=== PATIENT | female | born 1950 | race African-American/Black ===

== ENCOUNTER 2018-10-09 09:12 | Emergency (ER) | payer MEDICARE, OTHER ==
[~2018-10-09] VITALS: Ht 170.2 cm; Wt 70.0 kg
[~2018-10-09 09:12] MED LIST: AMLO1POW3 MC; CITA40TA6 PO; FURO20TA3 PO; NADO40TA PO; OMEP40CA6 PO; [UNRECOGNIZED DRUG - CODE] PO; [UNRECOGNIZED DRUG - CODE] PO
[2018-10-09 09:24] VITALS: Ht 170.2 cm; Wt 70.0 kg
[2018-10-09] MEDS ORDERED: HYDROCODONE/APAP (10/325) TAB PO ONE (10:00)
--- NOTE | 2018-10-09 10:12 | ERD ---
ER Documentation Chief Complaint Chief Complaint BIB [facility] FOR EVAL OF BACK PAIN. HX OF BACK SURGERY 2 WEEKS AGO HPI This is a 60-year-old female who presents for evaluation of acute on chronic back pain, she states she had surgery on her back 2 weeks ago. Patient states that she had requested a dose of pain medication, which was not given to her by her nursing salicylate, and so 911 was called. Otherwise she has no acute emergent complaints. She has no numbness or tingling, no chest pain or shortness of breath, no bowel bladder incontinence. ROS All systems reviewed and are negative except as per history of present illness. Medications Home Meds Reported Medications Citalopram Hydrobromide* (Citalopram Hydrobromide*) 40 Mg Tablet, 20 MG PO DAILY 01/31/13 Amlodipine Besylate (AMLODIPINE BESYLATE) 1 Gm Powder, 5 MG MC every other day 01/31/13 Furosemide* (Furosemide*) 20 Mg Tablet, 20 MG PO DAILY 01/31/13 Hydrocodone Bit-Acetaminophen (Hydrocodone Bit-Acetaminophen) 1 Each Tablet, 1 EACH PO QID 01/31/13 Nadolol (Nadolol) 40 Mg Tablet, 40 MG PO DAILY 01/31/13 Estradiol (Estradiol) 100 Gm Powder, 0.5 MG PO DAILY 01/31/13 Omeprazole* (Omeprazole*) 40 Mg Capsule.dr, 40 MG PO 01/31/13 Allergies Allergies: Coded Allergies: Penicillins (Verified Allergy, 01/31/13) iodine (Verified Allergy, 01/31/13) PMhx/Soc Anesthesia Reaction: No Hx Neurological Disorder: No Hx Respiratory Disorders: No Hx Cardiac Disorders: No Hx Psychiatric Problems: No Hx Miscellaneous Medical Probl: Yes (HTN, spinal stenosis, rheumatic fever) Hx Alcohol Use: No Hx Substance Use: No Hx Tobacco Use: No Smoking Status: Never smoker Physical Exam Vitals Vital Signs Date Temp Pulse Resp B/P (MAP) Pulse Ox O2 O2 Flow FiO2 Time Delivery Rate 10/09/18 98.0 90 17 142/82 99 09:24 (102) Physical Exam Const: Elderly appearing female, appears anxious Head: Atraumatic Eyes: Normal Conjunctiva ENT: Normal External Ears, Nose and Mouth. Neck: Full range of motion. No meningismus. Resp: Clear to auscultation bilaterally Cardio: Regular rate and rhythm, no murmurs Abd: Soft, non tender, non distended, no rebound or guarding. Normal bowel sounds Skin: No petechiae or rashes Back: No midline or flank tenderness Ext: No cyanosis, or edema Neur: Awake and alert Psych: Normal Mood and Affect Results 24 hrs Current Medications Medications Dose Sig/Hubert Start Time Status Last (Trade) Ordered Route PRN Stop Time Admin Dose Reason Admin 1 tab ONCE ONCE 10/09/18 DC 10/09/18 Acetaminophen PO 10:00 10:02 / 10/09/18 10:01 Hydrocodone Bitart ([place] ()) Procedures/MDM 68-year-old female presents with acute on chronic back pain. Patient actually has no acute medical complaints, and her main reason for presentation was that she had requested a dose of pain medications, and she had not been due for another 2 hours, other than that the patient has no neurologic complaints, she is otherwise afebrile and nontoxic-appearing. She is provided this pain medications, at this time she stable to be discharged to her facility, at discharge she was in no acute distress. Departure Diagnosis: Primary Impression: Back pain Back pain location: low back pain Chronicity: unspecified Back pain laterality: unspecified Sciatica presence: unspecified whether sciatica present Qualified Codes: M54.5 - Low back pain Condition: SONY Lopez MD Oct 09, 2018 10:12
[2018-10-09 11:35] VITALS: BP 132/89; PULSE 97; RESP 18
== END 2018-10-09 12:21 | disposition home or self-care (01) ==
LOC: E/R 09:12
DX: M54.5 Low back pain (principal); I10 Essential (primary) hypertension; R40.2142 Coma scale, eyes open, spontaneous, at arrival to emergency department; R40.2362 Coma scale, best motor response, obeys commands, at arrival to emergency department; R40.2252 Coma scale, best verbal response, oriented, at arrival to emergency department; R10.9 Unspecified abdominal pain
CPT/HCPCS: 74176; 80053; 81003; 83690; 85025; 85610; 93005

== ENCOUNTER 2019-01-28 18:34 | Inpatient (IN) | payer MEDICARE, OTHER ==
[~2019-01-28] VITALS: Ht 170.2 cm; Wt 64.7 kg
[2019-01-28] MEDS ORDERED: ONDANSETRON 4 MG INJ IV STA ×2 (19:33→23:36)
[2019-01-28] MEDS ORDERED: LIDOCAINE/MYLANTA 40 ML BTL PO STA (19:33)
[2019-01-28] MEDS ORDERED: BELLADONNA/PHENOBARBITAL TAB PO STA (19:33)
[2019-01-28] MEDS ORDERED: SOD CHLORIDE 0.9% 1,000 ML IV STA (19:33)
[2019-01-28] MEDS ORDERED: KETOROLAC 15 MG INJ IV STA (19:33)
--- NOTE | 2019-01-28 19:37 | ERD ---
ER Documentation Chief Complaint Chief Complaint AP X TODAY. HPI This is a 68-year-old woman who ate a hot dog yesterday which she states looked discolored (greenish) and then developed abdominal pain and cramping this morning with some episodes of nausea and retching. She states abdominal pain is epigastric and cramping radiates toward her back. Patient denies blood per rectum or melena although states her stool is always darkly colored because she uses iron supplements. She denies dysuria, no hematuria, no fevers or chills, no complaints of chest pain or shortness of breath. Patient does have chronic recurrent pain syndrome and used Emmett tablets at home prior to arrival without pain relief. ROS All systems reviewed and are negative except as per history of present illness. Medications Home Meds Active Scripts Hydrocodone/Acetaminophen (Emmett 5-325 Tablet) 1 Each Tablet, 1 TAB PO TID PRN for PAIN, #6 TAB Prov:SONY CANNON MD 01/28/19 Ibuprofen* (Motrin*) 600 Mg Tab, 600 MG PO Q8 PRN for PAIN AND/OR INFLAMMATION, #30 TAB Prov:SONY CANNON MD 01/28/19 Ondansetron Hcl* (Zofran*) 4 Mg Tablet, 4 MG PO Q8H PRN for NAUSEA AND/OR VOMITING, #30 TAB Prov:SONY CANNON MD 01/28/19 Reported Medications Citalopram Hydrobromide* (Citalopram Hydrobromide*) 40 Mg Tablet, 20 MG PO DAILY 01/31/13 Amlodipine Besylate (AMLODIPINE BESYLATE) 1 Gm Powder, 5 MG MC every other day 01/31/13 Furosemide* (Furosemide*) 20 Mg Tablet, 20 MG PO DAILY 01/31/13 Hydrocodone Bit-Acetaminophen (Hydrocodone Bit-Acetaminophen) 1 Each Tablet, 1 EACH PO QID 01/31/13 Nadolol (Nadolol) 40 Mg Tablet, 40 MG PO DAILY 01/31/13 Estradiol (Estradiol) 100 Gm Powder, 0.5 MG PO DAILY 01/31/13 Omeprazole* (Omeprazole*) 40 Mg Capsule.dr, 40 MG PO 01/31/13 Allergies Allergies: Coded Allergies: Penicillins (Verified Allergy, Unknown, 01/28/19) iodine (Verified Allergy, Unknown, 01/28/19) PMhx/Soc Hypertension, gastritis, chronic pain syndrome, chronic back pain, history of spinal stenosis, opioid dependence Anesthesia Reaction: No Hx Neurological Disorder: No Hx Respiratory Disorders: No Hx Cardiac Disorders: No Hx Psychiatric Problems: No Hx Miscellaneous Medical Probl: Yes (HTN, spinal stenosis, rheumatic fever) Hx Alcohol Use: No Hx Substance Use: No Hx Tobacco Use: No FmHx Family History: No diabetes Physical Exam Vitals Vital Signs Date Temp Pulse Resp B/P (MAP) Pulse Ox O2 O2 Flow FiO2 Time Delivery Rate 01/28/19 72 16 127/73 96 Room Air 22:07 (91) 01/28/19 99.2 80 20 153/77 98 18:37 (102) Physical Exam GENERAL: Well-developed, well-nourished, well-hydrated, moderate discomfort, afebrile HEENT: Moist mucous membranes, pink conjunctiva, no cervical spine tenderness or step-off deformities, no goiter, no jaundice or icterus, extraocular movements intact without pain. No submandibular induration, and no pharyngeal erythema NEURO: Alert and oriented 3, cranial nerves II through XII intact bilaterally, pupils equal round reactive to light, no focal deficits or facial asymmetry, sensation intact distally Strength 5/5 in upper and lower extremities bilaterally CARDIAC: Regular rate and rhythm, no murmurs rubs or gallops LUNGS: Clear bilaterally no wheezing crackles or stridor ABDOMEN: Epigastric tenderness to touch with voluntary guarding, no rigidity or rebound, no Nj sign, no psoas sign SKIN: Warm and dry to touch, no abrasions, contusions, or hematomas, no lacerations, no ecchymosis, no target lesions, and without ulcers EXTREMITIES: No clubbing cyanosis or edema, calves are bilaterally symmetrical, no Homans sign, no popliteal cord sign. Distal pulses equal and bilateral PSYCH: Normal affect without agitation or irritability Result Diagram: 01/28/19193801/28/191938 Results 24 hrs Laboratory Tests Test 01/28/19 19:39 White Blood Count 12.6 10^3/ul Red Blood Count 5.03 10^6/ul Hemoglobin 14.2 g/dl Hematocrit 43.4 % Mean Corpuscular Volume 86.3 fl Mean Corpuscular Hemoglobin 28.2 pg Mean Corpuscular Hemoglobin Concent 32.7 g/dl Red Cell Distribution Width 15.4 % Platelet Count 218 10^3/UL Mean Platelet Volume 9.4 fl Immature Granulocytes % 0.300 % Neutrophils % 74.1 % Lymphocytes % 17.8 % Monocytes % 6.5 % Eosinophils % 1.0 % Basophils % 0.3 % Nucleated Red Blood Cells % 0.0 /100WBC Immature Granulocytes # 0.040 10^3/ul Neutrophils # 9.3 10^3/ul Lymphocytes # 2.3 10^3/ul Monocytes # 0.8 10^3/ul Eosinophils # 0.1 10^3/ul Basophils # 0.0 10^3/ul Nucleated Red Blood Cells # 0.0 10^3/ul Sodium Level 140 mmol/L Potassium Level 3.7 mmol/L Chloride Level 101 mmol/L Carbon Dioxide Level 28 mmol/L Anion Gap 11 Blood Urea Nitrogen 13 mg/dl Creatinine 1.01 mg/dl Est Glomerular Filtrat Rate mL/min > 60 mL/min Glucose Level 101 mg/dl Calcium Level 9.8 mg/dl Total Bilirubin 0.4 mg/dl Direct Bilirubin 0.00 mg/dl Indirect Bilirubin 0.4 mg/dl Aspartate Amino Transf (AST/SGOT) 24 IU/L Alanine Aminotransferase (ALT/SGPT) 25 IU/L Alkaline Phosphatase 112 IU/L Total Protein 9.4 g/dl Albumin 4.6 g/dl Globulin 4.80 g/dl Albumin/Globulin Ratio 0.95 Lipase 129 U/L Current Medications Medications Dose Sig/Hubert Start Time Status Last (Trade) Ordered Route PRN Stop Time Admin Dose Reason Admin Sodium 1,000 ml @ Q1H STAT 01/28/19 DC 01/28/19 Chloride 1,000 mls/hr IV 19:33 01/28/19 19:46 20:32 Ondansetron 4 mg ONCE STAT 01/28/19 DC 01/28/19 HCl (Zofran IV 19:33 01/28/19 19:47 Inj) 19:40 40 ml ONCE STAT 01/28/19 DC 01/28/19 Miscellaneous PO 19:33 01/28/19 19:46 Medication 19:40 (Gi Cocktail (2)) Belladonna/ 2 tab ONCE STAT 01/28/19 DC 01/28/19 Phenobarbital PO 19:33 01/28/19 19:47 () 19:40 Ketorolac 15 mg ONCE STAT 01/28/19 DC 01/28/19 Tromethamine IV 19:33 01/28/19 19:47 (Toradol) 19:40 1 tab ONCE ONCE 01/28/19 DC 01/28/19 Acetaminophen PO 20:30 01/28/19 21:31 / 20:31 Hydrocodone Bitart (Emmett (5/325)) Procedures/MDM IV line was established patient was placed on radiation monitor rhythm strip revealed a sinus rhythm at about 80 bpm with upright P and T waves. Patient was afebrile I administered 1 L normal saline IV, Toradol 15 mg IV, Zofran 4 mg IV, GI cocktail p.o. EKG performed, read by me revealed a normal sinus rhythm at 78 bpm, normal axis, narrow QRS complex, no concerning ST elevations or depressions noted I did order 1 tablet of Emmett p.o. for continued abdominal pain. CBC and electrolytes are normal, liver function tests were normal, lipase normal For continued abdominal discomfort I did ordered a CT scan of the abdomen pelvis, which revealed thickening of gallbladder wall and mesenteric fat stranding inferior to the pancreas and irregular abnormal appearance of the wall of the duodenum. Please refer to radiologist dictation for full report. I administered hydromorphone 1 mg IV, Zofran 4 mg IV, LR 1 L IV x1. Patient may have early cholecystitis so I ordered ultrasound gallbladder and Zosyn 3.375 g IV. I consulted surgeon on-call Dr. Freed regarding the patient's CT scan findings and he agreed to consult the patient in the morning and recommended HIDA scan, although I will defer this order to admitting team. Patient admitted to [facility]. Departure Diagnosis: Primary Impression: Acute duodenitis Additional Impressions: Intractable abdominal pain Cholecystitis Condition: SONY Kim MD Jan 28, 2019 19:37
[2019-01-28] MEDS ORDERED: HYDROCODONE/APAP (5/325) TAB PO ONE (20:30)
[2019-01-28] MEDS ORDERED: HYDR-4011 PO (20:34)
[2019-01-28] MEDS ORDERED: IBUP-1542 PO (20:34)
[2019-01-28] MEDS ORDERED: ONDA4TAB8 PO (20:34)
[2019-01-28] MEDS ORDERED: LACTATED RINGER'S 1,000 ML IV STA (23:36)
[2019-01-28] MEDS ORDERED: HYDROmorphONE 1 MG/ML SYG IV STA (23:36)
[2019-01-29] MEDS ORDERED: PIPER-TAZO 3.375 GM IV (PMX) 100 ML IVPB ONE
[2019-01-29] MEDS ORDERED: LEVOFLOXACIN 750MG/D5W (PMX) 150 ML IVPB ONE (02:00)
[2019-01-29] MEDS ORDERED: metroNIDAZOLE 500 MG/NS (PMX) 100 ML IVPB ONE (02:00)
[2019-01-29] MEDS ORDERED: HYDROmorphONE 1 MG/ML SYG IV ONE (02:58)
[2019-01-29] MEDS ORDERED: NACL 0.9% 3 ML SYG IV SCH (04:00)
[2019-01-29] MEDS ORDERED: ONDANSETRON 4 MG INJ IV PRN (04:00)
[2019-01-29 04:08] VITALS: BP 136/80; PULSE 76; RESP 20
[2019-01-29] MEDS ORDERED: AMLO2.5T78 PO (04:21)
[2019-01-29] MEDS ORDERED: ASPI-535 PO (04:22)
[2019-01-29] MEDS ORDERED: MAGN400T28 PO (04:23)
[2019-01-29] MEDS ORDERED: METO-429 PO (04:24)
[2019-01-29] MEDS ORDERED: [UNRECOGNIZED DRUG - CODE] PO (04:31)
[2019-01-29] MEDS ORDERED: ATOR40TA68 PO (04:32)
[2019-01-29] MEDS: DEXTROSE 5%-0.45% NACL 1,000 ML IV SCH ×3 (04:47→23:47)
[2019-01-29] MEDS ORDERED: FOLI0.8C PO (04:58)
[2019-01-29] MEDS ORDERED: LACT1CAP56 PO (05:03)
[2019-01-29] MEDS ORDERED: POTA20LI15 PO (05:03)
[2019-01-29] MEDS ORDERED: CLOP75TA27 PO (05:04)
[2019-01-29] MEDS ORDERED: CHOL100062 PO (05:06)
[2019-01-29] MEDS ORDERED: DIAZ10TA4 PO (05:09)
[2019-01-29] MEDS ORDERED: DICL100G37 TOP (05:10)
[2019-01-29] MEDS ORDERED: HYDR-3980 PO (05:10)
[2019-01-29] MEDS ORDERED: DOCU-144 PO (05:12)
[2019-01-29] MEDS ORDERED: ZOLP5TAB PO (05:15)
[2019-01-29] MEDS: HYDROmorphONE 0.5 MG/0.5 ML SYG IV PRN ×2 (05:24→09:37)
--- NOTE | 2019-01-29 05:59 | HP ---
Date/Time of Note Date/Time of Note DATE: 01/29/19 TIME: 05:56 Assessment/Plan VTE Prophylaxis Pharmacological prophylaxis: heparin Lines/Catheters IV Catheter Type (from Nrsg): Saline Lock Assessment/Plan Assessment/Plan 1. Abdominal pain with N/V -Suspect secondary to gastroenteritis/duodenitis versus possibly cholecystitis -Keep n.p.o. with IV fluid -IV antibiotic -PPI -Consider surgical eval 2. Possible cholecystitis: See #1 3. Leukocytosis: See #1 and #2 4. History of spinal stenosis status post laminectomy -No acute issue Result Diagram: 01/29/19 0441 01/28/19 1939 Results 24hrs Laboratory Tests Test 01/28/19 19:39 01/29/19 04:41 White Blood Count 12.6 #H 11.7 H Red Blood Count 5.03 # 4.13 L Hemoglobin 14.2 # 11.9 L Hematocrit 43.4 # 35.8 L Mean Corpuscular Volume 86.3 86.7 Mean Corpuscular Hemoglobin 28.2 L 28.8 L Mean Corpuscular Hemoglobin Concent 32.7 33.2 Red Cell Distribution Width 15.4 H 15.2 H Platelet Count 218 170 # Mean Platelet Volume 9.4 9.8 Immature Granulocytes % 0.300 0.500 H Neutrophils % 74.1 73.5 Lymphocytes % 17.8 17.6 Monocytes % 6.5 7.2 Eosinophils % 1.0 0.9 Basophils % 0.3 0.3 Nucleated Red Blood Cells % 0.0 0.0 Immature Granulocytes # 0.040 H 0.060 H Neutrophils # 9.3 H 8.6 H Lymphocytes # 2.3 2.1 Monocytes # 0.8 0.8 Eosinophils # 0.1 0.1 Basophils # 0.0 0.0 Nucleated Red Blood Cells # 0.0 0.0 Prothrombin Time 12.3 Prothrombin Time Ratio 1.0 INR International Normalized Ratio 0.90 Activated Partial Thromboplast Time 32.6 Sodium Level 140 Potassium Level 3.7 Chloride Level 101 Carbon Dioxide Level 28 Anion Gap 11 Blood Urea Nitrogen 13 Creatinine 1.01 H Est Glomerular Filtrat Rate mL/min > 60 Glucose Level 101 Calcium Level 9.8 Total Bilirubin 0.4 Direct Bilirubin 0.00 Indirect Bilirubin 0.4 Aspartate Amino Transf (AST/SGOT) 24 Alanine Aminotransferase (ALT/SGPT) 25 Alkaline Phosphatase 112 Total Protein 9.4 H Albumin 4.6 Globulin 4.80 H Albumin/Globulin Ratio 0.95 Lipase 129 HPI/ROS Admit Date/Time Admit Date/Time Jan 28, 2019 at 23:46 Hx of Present Illness Patient is a 68-year-old female with a history of spinal stenosis status post surgery, rheumatic fever who presents the ER complaining of abdominal pain and nausea and vomiting. Symptoms started after she ate a hot dog. She said the hot dog did not feel fresh when she ate it. Emesis described as nonbloody. Denied any fever/chills, diarrhea. Ultrasound in the ER shows a sludge in the gallbladder neck. CT abdomen/pelvis shows the followin. Thickening of the gallbladder wall. Cannot exclude cholecystitis. Recommend correlation with ultrasound. 2. There is mesenteric fatty stranding, noted inferior to the pancreas, which has increased since prior examination. There is also interval development of a 4.2 mm hyperdensity, possibly calcification within the mesentery. There also appears to be thickened and abnormal appearance of the lyons of the duodenum in this location. Findings are worrisome for possible severe duodenitis. 3. Recommend correlation with amylase and lipase levels to exclude the possibility of pancreatitis. 4. GIVEN IRREGULAR APPEARANCE OF THE DUODENUM AND INCREASED MESENTERIC INFLAMMATORY CHANGES, RECOMMEND FOLLOW-UP CT SCAN WITH IV AND ORAL GASTROGRAPHIN CONTRAST FOR COMPLETE EVALUATION. 5. Status post hysterectomy. 6. L4-L5 postsurgical changes. PMH/Family/Social Past Medical History Past Surgical Hx: other Family History Significant Family History: no pertinent family hx Social History Alcohol Use: none Smoking Status: Never smoker Drug Use: none Exam Constitutional: other (No acute distress) Head: normocephalic, atraumatic Eyes: EOMI, PERRL Respiratory: clear to auscultation, normal air movement Cardiovascular: regular rate and rhythm Gastrointestinal: soft Extremities: normal pulses Medications Current Medications Dextrose/Sodium Chloride 1,000 ml @ 100 mls/hr Q10H IV Last administered on 01/29/19at 04:47; Admin Dose 100 MLS/HR; Start 01/29/19 at 03:47 IV Flush (NS 3 ml) 3 ml PER PROTOCOL IV ; Start 01/29/19 at 04:00 Ondansetron HCl (Zofran Inj) 4 mg Q6H PRN IV NAUSEA/VOMITING Last administered on 01/29/19at 05:24; Admin Dose 4 MG; Start 01/29/19 at 04:00 Hydromorphone HCl (Dilaudid) 0.5 mg Q4H PRN IV .SEVERE PAIN 7-10 Last administered on 01/29/19at 05:24; Admin Dose 0.5 MG; Start 01/29/19 at 04:00 Ciprofloxacin/ Dextrose 200 ml @ 200 mls/hr Q12 IVPB ; Start 01/29/19 at 09:00 Famotidine (Pepcid Iv) 20 mg BID IV ; Start 01/29/19 at 09:00 Coded Allergies: Penicillins (Verified Allergy, Unknown, 01/28/19) iodine (Verified Allergy, Unknown, 01/28/19) Social History Smoking Status: Never smoker Exam/Review of Systems Vital Signs Vitals Vital Signs Date Temp Pulse Resp B/P (MAP) Pulse Ox O2 O2 Flow FiO2 Time Delivery Rate 01/29/19 97.6 76 20 136/80 98 04:08 (98) 01/29/19 Room Air 03:31 LORENA BAY MD Jan 29, 2019 05:59
[2019-01-29] MEDS ORDERED: PANTOPRAZOLE 40 MG INJ IV SCH (06:00)
[2019-01-29 06:07] VITALS: Ht 170.2 cm; Wt 64.7 kg
[2019-01-29 08:18] VITALS: BP 140/73; PULSE 74; RESP 22
[2019-01-29] MEDS: FAMOTIDINE 20 MG INJ IV SCH ×2 (08:52→20:42)
[2019-01-29] MEDS: CIPROFLOXACIN 400MG/D5W 200 ML IVPB SCH ×2 (08:53→20:42)
--- NOTE | 2019-01-29 11:11 | PN ---
Date/Time of Note Date/Time of Note DATE: 01/29/19 TIME: 11:09 Assessment/Plan VTE Prophylaxis SCD applied (from Nsg): Yes Pharmacological prophylaxis: NA/contraindicated Pharm contraindication: other (SCD) Lines/Catheters IV Catheter Type (from Nrsg): Peripheral IV Assessment/Plan Assessment/Plan SIRS 2/2 Acute Gastroenteritis/Duodenitis - cont Zosyn, IVF - advance diet to clears - CT with oral contrast due to iodine allergy - pain control Result Diagram: 01/29/19 0441 01/29/19 0441 Results 24hrs Laboratory Tests Test 01/28/19 19:39 01/29/19 04:41 White Blood Count 12.6 #H 11.7 H Red Blood Count 5.03 # 4.13 L Hemoglobin 14.2 # 11.9 L Hematocrit 43.4 # 35.8 L Mean Corpuscular Volume 86.3 86.7 Mean Corpuscular Hemoglobin 28.2 L 28.8 L Mean Corpuscular Hemoglobin Concent 32.7 33.2 Red Cell Distribution Width 15.4 H 15.2 H Platelet Count 218 170 # Mean Platelet Volume 9.4 9.8 Immature Granulocytes % 0.300 0.500 H Neutrophils % 74.1 73.5 Lymphocytes % 17.8 17.6 Monocytes % 6.5 7.2 Eosinophils % 1.0 0.9 Basophils % 0.3 0.3 Nucleated Red Blood Cells % 0.0 0.0 Immature Granulocytes # 0.040 H 0.060 H Neutrophils # 9.3 H 8.6 H Lymphocytes # 2.3 2.1 Monocytes # 0.8 0.8 Eosinophils # 0.1 0.1 Basophils # 0.0 0.0 Nucleated Red Blood Cells # 0.0 0.0 Prothrombin Time 12.3 Prothrombin Time Ratio 1.0 INR International Normalized Ratio 0.90 Activated Partial Thromboplast Time 32.6 Sodium Level 140 139 Potassium Level 3.7 3.7 Chloride Level 101 106 Carbon Dioxide Level 28 28 Anion Gap 11 5 Blood Urea Nitrogen 13 10 Creatinine 1.01 H 0.86 Est Glomerular Filtrat Rate mL/min > 60 > 60 Glucose Level 101 99 Calcium Level 9.8 9.0 Total Bilirubin 0.4 0.5 Direct Bilirubin 0.00 0.00 Indirect Bilirubin 0.4 0.5 Aspartate Amino Transf (AST/SGOT) 24 16 Alanine Aminotransferase (ALT/SGPT) 25 17 Alkaline Phosphatase 112 75 Total Protein 9.4 H 7.1 # Albumin 4.6 3.6 # Globulin 4.80 H 3.50 H Albumin/Globulin Ratio 0.95 1.02 Lipase 129 Phosphorus Level 3.3 Magnesium Level 2.4 Subjective 24 Hr Interval Summary Free Text/Dictation Patient still with significant abdominal pain. Passing flatus. Abs US negative for cholelithiasis and cholecystitis. Patient wants to try clear liquids. Exam/Review of Systems Exam Vitals Vital Signs Date Temp Pulse Resp B/P (MAP) Pulse Ox O2 O2 Flow FiO2 Time Delivery Rate 01/29/19 98.7 74 22 140/73 99 08:18 (95) 01/29/19 Room Air 03:31 Psych: anxiety Respiratory: clear to auscultation, normal air movement Cardiovascular: regular rate and rhythm, nl pulses Gastrointestinal: soft, nl liver, spleen, bowel sounds, tender (TTP R side; no rebound or guarding) Results Results 24hrs Laboratory Tests Test 01/28/19 19:39 01/29/19 04:41 White Blood Count 12.6 #H 11.7 H Red Blood Count 5.03 # 4.13 L Hemoglobin 14.2 # 11.9 L Hematocrit 43.4 # 35.8 L Mean Corpuscular Volume 86.3 86.7 Mean Corpuscular Hemoglobin 28.2 L 28.8 L Mean Corpuscular Hemoglobin Concent 32.7 33.2 Red Cell Distribution Width 15.4 H 15.2 H Platelet Count 218 170 # Mean Platelet Volume 9.4 9.8 Immature Granulocytes % 0.300 0.500 H Neutrophils % 74.1 73.5 Lymphocytes % 17.8 17.6 Monocytes % 6.5 7.2 Eosinophils % 1.0 0.9 Basophils % 0.3 0.3 Nucleated Red Blood Cells % 0.0 0.0 Immature Granulocytes # 0.040 H 0.060 H Neutrophils # 9.3 H 8.6 H Lymphocytes # 2.3 2.1 Monocytes # 0.8 0.8 Eosinophils # 0.1 0.1 Basophils # 0.0 0.0 Nucleated Red Blood Cells # 0.0 0.0 Prothrombin Time 12.3 Prothrombin Time Ratio 1.0 INR International Normalized Ratio 0.90 Activated Partial Thromboplast Time 32.6 Sodium Level 140 139 Potassium Level 3.7 3.7 Chloride Level 101 106 Carbon Dioxide Level 28 28 Anion Gap 11 5 Blood Urea Nitrogen 13 10 Creatinine 1.01 H 0.86 Est Glomerular Filtrat Rate mL/min > 60 > 60 Glucose Level 101 99 Calcium Level 9.8 9.0 Total Bilirubin 0.4 0.5 Direct Bilirubin 0.00 0.00 Indirect Bilirubin 0.4 0.5 Aspartate Amino Transf (AST/SGOT) 24 16 Alanine Aminotransferase (ALT/SGPT) 25 17 Alkaline Phosphatase 112 75 Total Protein 9.4 H 7.1 # Albumin 4.6 3.6 # Globulin 4.80 H 3.50 H Albumin/Globulin Ratio 0.95 1.02 Lipase 129 Phosphorus Level 3.3 Magnesium Level 2.4 Medications Medication Current Medications Dextrose/Sodium Chloride 1,000 ml @ 100 mls/hr Q10H IV Last administered on 01/29/19 04:47; Admin Dose 100 MLS/HR; Start 01/29/19 at 03:47 IV Flush (NS 3 ml) 3 ml PER PROTOCOL IV ; Start 01/29/19 at 04:00 Ondansetron HCl (Zofran Inj) 4 mg Q6H PRN IV NAUSEA/VOMITING Last administered on 01/29/19 05:24; Admin Dose 4 MG; Start 01/29/19 at 04:00 Hydromorphone HCl (Dilaudid) 0.5 mg Q4H PRN IV .SEVERE PAIN 7-10 Last administered on 01/29/19 09:37; Admin Dose 0.5 MG; Start 01/29/19 at 04:00 Ciprofloxacin/ Dextrose 200 ml @ 200 mls/hr Q12 IVPB Last administered on 01/29/19 08:53; Admin Dose 200 MLS/HR; Start 01/29/19 at 09:00 Famotidine (Pepcid Iv) 20 mg BID IV Last administered on 01/29/19 08:52; Admin Dose 20 MG; Start 01/29/19 at 09:00 KATHARINE STEWART MD Jan 29, 2019 11:11
[2019-01-29] MEDS ORDERED: traMADol 50 MG TAB GTB PRN (11:30)
[2019-01-29] MEDS ORDERED: BARIUM SULF 2% 450 ML BTL (BERRY SMOOTHIE) PO ONE ×2 (12:00)
[2019-01-29] MEDS: HYDROmorphONE 1 MG/ML SYG IV PRN ×3 (13:11→21:34)
[2019-01-29] MEDS: metroNIDAZOLE 500 MG/NS (PMX) 100 ML IVPB SCH ×2 (13:38→21:36)
[2019-01-29] MEDS: ONDANSETRON 4 MG INJ IV PRN (13:38)
--- NOTE | 2019-01-29 13:47 | CONS ---
Assessment/Plan Assessment/Plan Assessment/Plan (Daily) Patient with abdominal pain and some signs of duodenitis unclear etiology. I agreed to repeat the CT scan with contrast. Consultation Date/Type/Reason Admit Date/Time Jan 28, 2019 at 23:46 Date of Consultation: Jan 29, 2019 Type of Consult Surgical Reason for Consultation Upper abdomen pain Date/Time of Note DATE: 01/29/19 TIME: 13:44 Hx of Present Illness This is a 68-year-old woman who ate a hot dog yesterday which she states looked discolored (greenish) and then developed abdominal pain and cramping this morning with some episodes of nausea and retching. She states abdominal pain is epigastric and cramping radiates toward her back. Patient denies blood per rectum or melena although states her stool is always darkly colored because she uses iron supplements. She denies dysuria, no hematuria, no fevers or chills, no complaints of chest pain or shortness of breath. Patient does have chronic recurrent pain syndrome and used [place] tablets at home prior to arrival without pain relief. CT scan was performed in the emergency room that showed thickened wall of the stomach and duodenum no evidence of cholecystitis no free air no free fluid in the abdomen. Sludge in the gallbladder. Ultrasound also did not confirmed gallstones and the gallbladder wall was found to be normal. Patient was admitted with IV antibiotics. Overnight patient states her pain did not improve significantly. Constitutional: no complaints, improved Eyes: no complaints ENT: no complaints Respiratory: no complaints Cardiovascular: no complaints Gastrointestinal: no complaints Genitourinary: no complaints Musculoskeletal: no complaints Skin: no complaints Neurologic: no complaints Endocrine: no complaints Lymphatic: no complaints Psychological: no complaints, nl mood/affect Immunologic: no complaints Past Medical History Medical History: coronary artery disease Home Meds Active Scripts Hydrocodone/Acetaminophen ([place] 5-325 Tablet) 1 Each Tablet, 1 TAB PO TID PRN for PAIN, #6 TAB Prov:SONY CANNON MD 01/28/19 Ibuprofen* (Motrin*) 600 Mg Tab, 600 MG PO Q8 PRN for PAIN AND/OR INFLAMMATION, #30 TAB Prov:SONY CANNON MD 01/28/19 Ondansetron Hcl* (Zofran*) 4 Mg Tablet, 4 MG PO Q8H PRN for NAUSEA AND/OR VOMITING, #30 TAB Prov:ZOHRABIAN,SONY MD 01/28/19 Reported Medications Zolpidem Tartrate* (Ambien*) 5 Mg Tablet, 5 MG PO QHS for INSOMNIA, #30 TAB 01/29/19 Docusate Sodium* (Colace*) 100 Mg Capsule, 100 MG PO BID, #60 CAP 01/29/19 Hydrocodone/Acetaminophen ([place] 10-325 Tablet) 1 Each Tablet, 1 EACH PO TID for PAIN, TAB 01/29/19 Diclofenac Sodium* (Voltaren* Gel) 1% -100 Gm Gel, 2 GM TOP BID for FEET AND LEGS., #1 TUB 01/29/19 Diazepam* (Diazepam*) 10 Mg Tablet, 10 MG PO BID, TAB 01/29/19 Cholecalciferol* (Vitamin D3*) 1,000 Unit Tablet, 5000 UNIT PO at bedtime, TAB 01/29/19 Clopidogrel Bisulfate (Clopidogrel) 75 Mg Tablet, 75 MG PO at night, #30 TAB 01/29/19 Lactobacillus Combo No.11 (Probiotic) 1 Each Cap.sprink, 1 CAP PO at night, CAP 01/29/19 Potassium Chloride* (Potassium Chloride*) 20 Meq/15 Ml Liquid, 20 MEQ PO DAILY, ML 01/29/19 Folic Acid (Folic Acid) 0.8 Mg Capsule, 0.8 MG PO DAILY, CAP 01/29/19 Atorvastatin* (Atorvastatin*) 40 Mg Tablet, 10 MG PO QHS, #30 TAB 01/29/19 Multivitamin/Iron/Folic Acid (MULTI-DAY PLUS IRON TABLET) 1 Each Tablet, 1 EACH PO DAILY, TAB 01/29/19 Metoprolol Tartrate* (Lopressor*) 50 Mg Tab, 50 MG PO BID, #60 TAB 01/29/19 Magnesium Oxide* (Magnesium Oxide*) 400 Mg Tablet, 250 MG PO BID, TAB 01/29/19 Aspirin Ec (Aspir 81) 81 Mg Tablet.dr, 81 MG PO DAILY, #30 TAB 01/29/19 Amlodipine Besylate* (Amlodipine Besylate*) 2.5 Mg Tablet, 2.5 MG PO DAILY, #30 TAB 01/29/19 Discontinued Reported Medications Citalopram Hydrobromide* (Citalopram Hydrobromide*) 40 Mg Tablet, 20 MG PO DAILY 01/31/13 Amlodipine Besylate (AMLODIPINE BESYLATE) 1 Gm Powder, 5 MG MC every other day 01/31/13 Furosemide* (Furosemide*) 20 Mg Tablet, 20 MG PO DAILY 01/31/13 Hydrocodone Bit-Acetaminophen (Hydrocodone Bit-Acetaminophen) 1 Each Tablet, 1 EACH PO QID 01/31/13 Nadolol (Nadolol) 40 Mg Tablet, 40 MG PO DAILY 01/31/13 Estradiol (Estradiol) 100 Gm Powder, 0.5 MG PO DAILY 01/31/13 Omeprazole* (Omeprazole*) 40 Mg Capsule.dr, 40 MG PO 01/31/13 Medications Current Medications Dextrose/Sodium Chloride 1,000 ml @ 100 mls/hr Q10H IV Last administered on 01/29/19 04:47; Admin Dose 100 MLS/HR; Start 01/29/19 at 03:47 IV Flush (NS 3 ml) 3 ml PER PROTOCOL IV ; Start 01/29/19 at 04:00 Hydromorphone HCl (Dilaudid) 0.5 mg Q4H PRN IV .SEVERE PAIN 7-10 Last administered on 01/29/19 09:37; Admin Dose 0.5 MG; Start 01/29/19 at 04:00 Ciprofloxacin/ Dextrose 200 ml @ 200 mls/hr Q12 IVPB Last administered on 01/29/19 08:53; Admin Dose 200 MLS/HR; Start 01/29/19 at 09:00 Famotidine (Pepcid Iv) 20 mg BID IV Last administered on 01/29/19 08:52; Admin Dose 20 MG; Start 01/29/19 at 09:00 Metronidazole 100 ml @ 100 mls/hr Q8 IVPB Last administered on 01/29/19 13:38; Admin Dose 100 MLS/HR; Start 01/29/19 at 14:00 Tramadol HCl (Ultram) 50 mg Q6H PRN GTB MODERATE PAIN LEVEL 4-6 Last administered on 01/29/19 11:49; Admin Dose 50 MG; Start 01/29/19 at 11:30 Hydromorphone HCl (Dilaudid) 1 mg Q4H PRN IV SEVERE PAIN LEVEL 7-10 Last administered on 01/29/19 13:11; Admin Dose 1 MG; Start 01/29/19 at 11:30 Ondansetron HCl (Zofran Inj) 4 mg Q4H PRN IV NAUSEA/VOMITING Last administered on 01/29/19at 13:38; Admin Dose 4 MG; Start 01/29/19 at 11:30 Allergies: Coded Allergies: Penicillins (Verified Allergy, Unknown, 01/28/19) iodine (Verified Allergy, Unknown, 01/28/19) Social History Smoking Status: Never smoker Exam/Review of Systems Exam Vitals Vital Signs Date Temp Pulse Resp B/P (MAP) Pulse Ox O2 O2 Flow FiO2 Time Delivery Rate 01/29/19 98.7 74 22 140/73 99 08:18 (95) 01/29/19 Room Air 03:31 Constitutional: alert, oriented, well developed Psych: no complaints, nl mood/affect Head: normocephalic, atraumatic Eyes: nl conjunctiva, EOMI, nl lids, nl sclera, PERRL ENMT: nl external ears & nose, nl lips & teeth, nl nasal mucosa & septum Neck: supple, non-tender Respiratory: clear to auscultation, normal air movement Cardiovascular: regular rate and rhythm, nl pulses Gastrointestinal: soft, other (The abdomen is tender in the upper abdomen without rebound.) Musculoskeletal: nl extremities to inspection, nl gait and stance Extremities: normal pulses Neurological: 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 II-XII intact, nl mental status, nl speech, nl strength Skin: nl turgor; No rash or lesions Lymph: nl lymph nodes Results Result Diagram: 01/29/1944001/29/19 0441 Results 24hrs Laboratory Tests Test 01/28/19 19:39 01/29/19 04:41 White Blood Count 12.6 #H 11.7 H Red Blood Count 5.03 # 4.13 L Hemoglobin 14.2 # 11.9 L Hematocrit 43.4 # 35.8 L Mean Corpuscular Volume 86.3 86.7 Mean Corpuscular Hemoglobin 28.2 L 28.8 L Mean Corpuscular Hemoglobin Concent 32.7 33.2 Red Cell Distribution Width 15.4 H 15.2 H Platelet Count 218 170 # Mean Platelet Volume 9.4 9.8 Immature Granulocytes % 0.300 0.500 H Neutrophils % 74.1 73.5 Lymphocytes % 17.8 17.6 Monocytes % 6.5 7.2 Eosinophils % 1.0 0.9 Basophils % 0.3 0.3 Nucleated Red Blood Cells % 0.0 0.0 Immature Granulocytes # 0.040 H 0.060 H Neutrophils # 9.3 H 8.6 H Lymphocytes # 2.3 2.1 Monocytes # 0.8 0.8 Eosinophils # 0.1 0.1 Basophils # 0.0 0.0 Nucleated Red Blood Cells # 0.0 0.0 Prothrombin Time 12.3 Prothrombin Time Ratio 1.0 INR International Normalized Ratio 0.90 Activated Partial Thromboplast Time 32.6 Sodium Level 140 139 Potassium Level 3.7 3.7 Chloride Level 101 106 Carbon Dioxide Level 28 28 Anion Gap 11 5 Blood Urea Nitrogen 13 10 Creatinine 1.01 H 0.86 Est Glomerular Filtrat Rate mL/min > 60 > 60 Glucose Level 101 99 Calcium Level 9.8 9.0 Total Bilirubin 0.4 0.5 Direct Bilirubin 0.00 0.00 Indirect Bilirubin 0.4 0.5 Aspartate Amino Transf (AST/SGOT) 24 16 Alanine Aminotransferase (ALT/SGPT) 25 17 Alkaline Phosphatase 112 75 Total Protein 9.4 H 7.1 # Albumin 4.6 3.6 # Globulin 4.80 H 3.50 H Albumin/Globulin Ratio 0.95 1.02 Lipase 129 Phosphorus Level 3.3 Magnesium Level 2.4 Medications Medication Current Medications Dextrose/Sodium Chloride 1,000 ml @ 100 mls/hr Q10H IV Last administered on 01/29/19at 04:47; Admin Dose 100 MLS/HR; Start 01/29/19 at 03:47 IV Flush (NS 3 ml) 3 ml PER PROTOCOL IV ; Start 01/29/19 at 04:00 Hydromorphone HCl (Dilaudid) 0.5 mg Q4H PRN IV .SEVERE PAIN 7-10 Last administered on 01/29/19at 09:37; Admin Dose 0.5 MG; Start 01/29/19 at 04:00 Ciprofloxacin/ Dextrose 200 ml @ 200 mls/hr Q12 IVPB Last administered on 01/29/19 08:53; Admin Dose 200 MLS/HR; Start 01/29/19 at 09:00 Famotidine (Pepcid Iv) 20 mg BID IV Last administered on 01/29/19 08:52; Admin Dose 20 MG; Start 01/29/19 at 09:00 Metronidazole 100 ml @ 100 mls/hr Q8 IVPB Last administered on 01/29/19 13:38; Admin Dose 100 MLS/HR; Start 01/29/19 at 14:00 Tramadol HCl (Ultram) 50 mg Q6H PRN GTB MODERATE PAIN LEVEL 4-6 Last administered on 01/29/19 11:49; Admin Dose 50 MG; Start 01/29/19 at 11:30 Hydromorphone HCl (Dilaudid) 1 mg Q4H PRN IV SEVERE PAIN LEVEL 7-10 Last administered on 01/29/19 13:11; Admin Dose 1 MG; Start 01/29/19 at 11:30 Ondansetron HCl (Zofran Inj) 4 mg Q4H PRN IV NAUSEA/VOMITING Last administered on 01/29/19 13:38; Admin Dose 4 MG; Start 01/29/19 at 11:30 MELANIE HERNANDEZ MD Jan 29, 2019 13:47
[2019-01-29 14:39] VITALS: BP 134/77; PULSE 83; RESP 18
[2019-01-29] MEDS ORDERED: IOHEXOL 300MG/ML 150 ML BTL ONE (17:02)
[2019-01-29] MEDS ORDERED: SOD CHLORIDE 0.9% 100 ML ONE (17:02)
[2019-01-29] MEDS ORDERED: ZOLPIDEM 5 MG TAB PO PRN (20:30)
[2019-01-29] MEDS: METOPROLOL 50 MG TAB GTB SCH (20:39)
[2019-01-29 20:48] VITALS: BP 162/85; PULSE 84; RESP 20
[2019-01-29] MEDS: AMLODIPINE 2.5 MG TAB PO SCH (22:02)
[2019-01-30] MEDS: HYDROmorphONE 1 MG/ML SYG IV PRN ×4 (01:40→17:12)
[2019-01-30 01:44] VITALS: BP 136/73; PULSE 70; RESP 19
[2019-01-30] MEDS: DEXTROSE 5%-0.45% NACL 1,000 ML IV SCH (05:16)
[2019-01-30] MEDS: metroNIDAZOLE 500 MG/NS (PMX) 100 ML IVPB SCH ×2 (05:33→13:12)
[2019-01-30 07:52] VITALS: BP 133/79; PULSE 70; RESP 20
[2019-01-30] MEDS: FAMOTIDINE 20 MG INJ IV SCH (08:20)
[2019-01-30] MEDS: METOPROLOL 50 MG TAB GTB SCH (08:21)
[2019-01-30] MEDS: CIPROFLOXACIN 400MG/D5W 200 ML IVPB SCH (08:22)
[2019-01-30] MEDS: AMLODIPINE 2.5 MG TAB PO SCH (08:23)
--- NOTE | 2019-01-30 09:35 | PDOCDIS ---
Discharge Instructions CONDITION [id number] Patient Condition: [id number] Stable HOME CARE INSTRUCTIONS: [id number] Diet Instructions: [id number] Regular ACTIVITY: [id number] Activity Restrictions: [id number] No Restrictions KATHARINE STEWART MD Jan 30, 2019 09:34
--- NOTE | 2019-01-30 09:39 | DS ---
Date/Time of Note Date/Time of Note DATE: 01/30/19 TIME: 09:37 Discharge Summary Admission/Discharge Info Admit Date/Time Jan 28, 2019 at 23:46 Discharge Date/Time Patient Condition: Stable Hospital Course Patient admitted s/p intractable abdominal pain with nausea after eating a hot dog on 01/27. Symptoms resolved with IVF, Abx, conservative mgmt. Imaging was not consistent with acute cholecystitis, duodenitis, appendicitis, diverticulitis. Symptoms were likely due to acute gastroenteritis from food poisoning. The patient will be discharged home in stable condition. Home Meds Active Scripts Hydrocodone/Acetaminophen ([place] 5-325 Tablet) 1 Each Tablet, 1 TAB PO TID PRN for PAIN, #6 TAB Prov:SNOY CANNON MD 01/28/19 Ibuprofen* (Motrin*) 600 Mg Tab, 600 MG PO Q8 PRN for PAIN AND/OR INFLAMMATION, #30 TAB Prov:SONY CANNON MD 01/28/19 Ondansetron Hcl* (Zofran*) 4 Mg Tablet, 4 MG PO Q8H PRN for NAUSEA AND/OR VOMITING, #30 TAB Prov:SONY CANNON MD 01/28/19 Reported Medications Zolpidem Tartrate* (Ambien*) 5 Mg Tablet, 5 MG PO QHS for INSOMNIA, #30 TAB 01/29/19 Docusate Sodium* (Colace*) 100 Mg Capsule, 100 MG PO BID, #60 CAP 01/29/19 Hydrocodone/Acetaminophen ([place] 10-325 Tablet) 1 Each Tablet, 1 EACH PO TID for PAIN, TAB 01/29/19 Diclofenac Sodium* (Voltaren* Gel) 1% -100 Gm Gel, 2 GM TOP BID for FEET AND LEGS., #1 TUB 01/29/19 Diazepam* (Diazepam*) 10 Mg Tablet, 10 MG PO BID, TAB 01/29/19 Cholecalciferol* (Vitamin D3*) 1,000 Unit Tablet, 5000 UNIT PO at bedtime, TAB 01/29/19 Clopidogrel Bisulfate (Clopidogrel) 75 Mg Tablet, 75 MG PO at night, #30 TAB 01/29/19 Lactobacillus Combo No.11 (Probiotic) 1 Each Cap.sprink, 1 CAP PO at night, CAP 01/29/19 Potassium Chloride* (Potassium Chloride*) 20 Meq/15 Ml Liquid, 20 MEQ PO DAILY, ML 7/6/19 Folic Acid (Folic Acid) 0.8 Mg Capsule, 0.8 MG PO DAILY, CAP 01/29/19 Atorvastatin* (Atorvastatin*) 40 Mg Tablet, 10 MG PO QHS, #30 TAB 01/29/19 Multivitamin/Iron/Folic Acid (MULTI-DAY PLUS IRON TABLET) 1 Each Tablet, 1 EACH PO DAILY, TAB 01/29/19 Metoprolol Tartrate* (Lopressor*) 50 Mg Tab, 50 MG PO BID, #60 TAB 01/29/19 Magnesium Oxide* (Magnesium Oxide*) 400 Mg Tablet, 250 MG PO BID, TAB 01/29/19 Aspirin Ec (Aspir 81) 81 Mg Tablet.dr, 81 MG PO DAILY, #30 TAB 01/29/19 Amlodipine Besylate* (Amlodipine Besylate*) 2.5 Mg Tablet, 2.5 MG PO DAILY, #30 TAB 01/29/19 Discontinued Reported Medications Citalopram Hydrobromide* (Citalopram Hydrobromide*) 40 Mg Tablet, 20 MG PO DAILY 01/31/13 Amlodipine Besylate (AMLODIPINE BESYLATE) 1 Gm Powder, 5 MG MC every other day 01/31/13 Furosemide* (Furosemide*) 20 Mg Tablet, 20 MG PO DAILY 01/31/13 Hydrocodone Bit-Acetaminophen (Hydrocodone Bit-Acetaminophen) 1 Each Tablet, 1 EACH PO QID 01/31/13 Nadolol (Nadolol) 40 Mg Tablet, 40 MG PO DAILY 01/31/13 Estradiol (Estradiol) 100 Gm Powder, 0.5 MG PO DAILY 01/31/13 Omeprazole* (Omeprazole*) 40 Mg Capsule., 40 MG PO 01/31/13 Follow-up Plan Dr. Bazzi as needed Primary Care Provider Not On Staff Doctor Time spent on discharge: > 30 minutes Pending Labs Laboratory Tests Test 01/30/19 05:45 White Blood Count 12.1 10^3/ul (4.8-10.8) Red Blood Count 4.42 10^6/ul (4.20-5.40) Hemoglobin 12.4 g/dl (12.0-16.0) Hematocrit 38.0 % (37.0-47.0) Mean Corpuscular Volume 86.0 fl (82.0-101.0) Mean Corpuscular Hemoglobin 28.1 pg (29.0-33.0) Mean Corpuscular Hemoglobin Concent 32.6 g/dl (32.0-37.0) Red Cell Distribution Width 15.0 % (11.5-14.5) Platelet Count 179 10^3/UL (140-415) Mean Platelet Volume 9.7 fl (7.4-10.4) Immature Granulocytes % 0.500 % (0.001-0.429) Neutrophils % 75.9 % (39.0-77.0) Lymphocytes % 14.9 % (15.0-51.0) Monocytes % 7.9 % (0.0-11.0) Eosinophils % 0.6 % (0.0-7.0) Basophils % 0.2 % (0.0-2.0) Nucleated Red Blood Cells % 0.0 /100WBC (0.0-0.0) Immature Granulocytes # 0.060 10^3/ul (0.0-0.031) Neutrophils # 9.2 10^3/ul (1.6-7.5) Lymphocytes # 1.8 10^3/ul (0.8-2.9) Monocytes # 1.0 10^3/ul (0.3-0.9) Eosinophils # 0.1 10^3/ul (0.0-0.5) Basophils # 0.0 10^3/ul (0.0-0.1) Nucleated Red Blood Cells # 0.0 10^3/ul (0.0-0.0) Sodium Level 134 mmol/L (135-144) Potassium Level 3.8 mmol/L (3.5-5.1) Chloride Level 100 mmol/L (97-110) Carbon Dioxide Level 27 mmol/L (21-31) Anion Gap 7 (5-13) Blood Urea Nitrogen 5 mg/dl (7-20) Creatinine 0.94 mg/dl (0.44-1.00) Est Glomerular Filtrat Rate mL/min > 60 mL/min (>60) Glucose Level 104 mg/dl (70-220) Calcium Level 8.9 mg/dl (8.4-10.2) Phosphorus Level 3.4 mg/dl (2.5-4.9) Magnesium Level 2.1 mg/dl (1.7-2.5) KATHARINE STEWART MD Jan 30, 2019 09:38
[2019-01-30 14:25] VITALS: BP 137/73; PULSE 62; RESP 18
[2019-01-30] MEDS: ONDANSETRON 4 MG INJ IV PRN (15:12)
--- NOTE | 2019-01-30 16:31 | PN ---
Date/Time of Note Date/Time of Note DATE: 01/30/19 TIME: 16:30 Assessment/Plan Lines/Catheters IV Catheter Type (from Nrsg): Peripheral IV Assessment/Plan Assessment/Plan Abdominal pain is getting better, advance diet will follow as needed. Subjective 24 Hr Interval Summary Patient is getting better with pain, no nausea or vomiting. Exam is benign very mild tenderness significantly better compared to the previous exams. Exam/Review of Systems Vital Signs Vitals Vital Signs Date Temp Pulse Resp B/P (MAP) Pulse Ox O2 O2 Flow FiO2 Time Delivery Rate 01/30/19 98.6 62 18 137/73 98 14:25 (94) 01/29/19 Room Air 03:31 Intake and Output 01/29/19 01/29/19 01/30/19 1515:00 23:00 07:00 IntakeIntake Total 300 ml 1980 ml 1735 ml BalanceBalance 300 ml 1980 ml 1735 ml Results Result Diagram: 01/30/19 0545 01/30/19 0545 MELANIE HERNANDEZ MD Jan 30, 2019 16:31
== END 2019-01-30 17:54 | disposition home or self-care (01) | DRG 395 ==
LOC: E/R 18:34 → 2NE 23:46
PROVIDERS: ADMIT Internal Medicine; ATTEND Internal Medicine
DX: K52.1 Toxic gastroenteritis and colitis (principal); T62.8X1A Toxic effect of other specified noxious substances eaten as food, accidental (unintentional), initial encounter
CPT/HCPCS: 36415; 74176; 74177; 76705; 80048; 80053; 83690; 83735; 84100; 85025; 85610; 85730; 93005; 96374; 96375; J0744; J1170; J1885; J1956; J2405; J7030; J7042; J7120; Q9967

== ENCOUNTER 2019-02-01 09:06 | Inpatient (IN) | payer MEDICARE, OTHER ==
[~2019-02-01] VITALS: Ht 170.2 cm; Wt 63.0 kg
[~2019-02-01 09:06] MED LIST changes: -AMLO1POW3 MC; +AMLO2.5T78 PO; +ASPI-535 PO; +ATOR40TA68 PO; +CHOL100062 PO; -CITA40TA6 PO; +CLOP75TA27 PO; +DIAZ10TA4 PO; +DICL100G37 TOP; +DOCU-144 PO; +FOLI0.8C PO; -FURO20TA3 PO; +HYDR-3980 PO; +HYDR-4011 PO; +IBUP-1542 PO; +LACT1CAP56 PO; +MAGN400T28 PO; +METO-429 PO; -NADO40TA PO; -OMEP40CA6 PO; +ONDA4TAB8 PO; +POTA20LI15 PO; +ZOLP5TAB PO; +[UNRECOGNIZED DRUG - CODE] PO; -[UNRECOGNIZED DRUG - CODE] PO; -[UNRECOGNIZED DRUG - CODE] PO
[2019-02-01] MEDS ORDERED: ONDANSETRON 4 MG INJ IV STA (09:34)
[2019-02-01] MEDS ORDERED: morphine 4 MG/ML VIAL IV STA (09:34)
[2019-02-01] MEDS ORDERED: ACETAMINOPHEN 325 MG TAB PO PRN (10:00)
[2019-02-01] MEDS ORDERED: ONDANSETRON 4 MG INJ IV PRN (10:00)
[2019-02-01] MEDS ORDERED: FURO20TA3 PO (10:28)
[2019-02-01] MEDS ORDERED: ROPI1TAB PO (10:30)
[2019-02-01] MEDS ORDERED: ATOR10TA65 PO (10:31)
[2019-02-01] MEDS ORDERED: CHOL500010 PO (10:32)
[2019-02-01] MEDS ORDERED: MAGN500C PO (10:35)
[2019-02-01] MEDS ORDERED: POTA20TA96 PO (10:36)
[2019-02-01] MEDS ORDERED: TRAV4OP25 BOTH EYES (10:37)
--- NOTE | 2019-02-01 10:54 | HP ---
Date/Time of Note Date/Time of Note DATE: 02/01/19 TIME: 10:40 Assessment/Plan VTE Prophylaxis Pharmacological prophylaxis: NA/contraindicated Pharm contraindication: patient refusal Lines/Catheters IV Catheter Type (from Nrsg): Saline Lock Assessment/Plan Problems: (1) Abdominal pain Status: Acute Comment: of unclear etiology.. she looks comfortable currently at rest, but states is quite tender on exam. Labs are normal. Recent CT scan x 2, and abd ROZINA with consrtasting results, but certainly no suffggestion for pancreatitis. ? acute ines, aculculous ines?... labs now normal. Will get GI opinion with Dr Jean. 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 (4) Valvular heart disease (5) S/P AVR (6) S/P MVR (mitral valve repair) Result Diagram: 02/01/19 0949 02/01/19 0949 Results 24hrs Laboratory Tests Test 02/01/19 09:49 White Blood Count 7.1 # Red Blood Count 4.63 Hemoglobin 12.8 Hematocrit 39.6 Mean Corpuscular Volume 85.5 Mean Corpuscular Hemoglobin 27.6 L Mean Corpuscular Hemoglobin Concent 32.3 Red Cell Distribution Width 14.7 H Platelet Count 208 Mean Platelet Volume 8.9 Immature Granulocytes % 0.300 Neutrophils % 71.2 Lymphocytes % 16.6 Monocytes % 9.7 Eosinophils % 1.8 Basophils % 0.4 Nucleated Red Blood Cells % 0.0 Immature Granulocytes # 0.020 Neutrophils # 5.1 Lymphocytes # 1.2 Monocytes # 0.7 Eosinophils # 0.1 Basophils # 0.0 Nucleated Red Blood Cells # 0.0 Urine Color YELLOW Urine Clarity CLEAR Urine pH 7.0 Urine Specific [place] 1.009 Urine Ketones NEGATIVE Urine Nitrite NEGATIVE Urine Bilirubin NEGATIVE Urine Urobilinogen NEGATIVE Urine Leukocyte Esterase NEGATIVE Urine Hemoglobin NEGATIVE Urine Glucose NEGATIVE Urine Total Protein NEGATIVE Sodium Level 141 Potassium Level 3.9 Chloride Level 101 Carbon Dioxide Level 30 Anion Gap 10 Blood Urea Nitrogen 9 Creatinine 0.89 Est Glomerular Filtrat Rate mL/min > 60 Glucose Level 81 Calcium Level 9.6 Total Bilirubin 0.4 Direct Bilirubin 0.00 Indirect Bilirubin 0.4 Aspartate Amino Transf (AST/SGOT) 23 Alanine Aminotransferase (ALT/SGPT) 20 Alkaline Phosphatase 84 Total Protein 8.5 H Albumin 4.2 Globulin 4.30 H Albumin/Globulin Ratio 0.97 Lipase 28 HPI/ROS Admit Date/Time Admit Date/Time Hx of Present Illness This is a 68 y/o female who was admitted to [facility] this past weekend with abdominal pain. She had CT abd x 2, and an abd ROZINA which revealed a normal pancreas and GB, and was d/c without a clear dx, now returns with recurrent abdominal pain. There is no associated fevers, chills, nausea or emesis. no diarrhea. She states the pain is severe and is coming from her midback, thru to her midepigastric area. She is on Zantac. Again the radiology studies at first suggested some GB sludge, but NO thickened GB wall, no stones, nl pancreas, and labs showed a normal lipase. There was a suggesteion of "mesenteric panniculitis" on the last CT> She is here now afeb, hemodyn stable, and in NAD, but light palpation of her midepig elicits severe c/o pain. Labs here show normal LFTs, no leukocytosis, and a nl lipase. Urine is clean. She states she is not able to tolerate solids due to exacerbation of the pain. She does have a hx/o chronic LBP, recently had lumbar surgery in [place], and sees Dr Nava, Pain Management, in [place]. ROS Constitutional: no complaints, improved, chills, diaphoresis, disoriented, fatigue, febrile, nausea, poor po, weight change, other Eyes: No no complaints, No pain, No discharge, No redness, No visual change, No other ENT: No no complaints, No bleeding, No pain, No congestion, No discharge, No d ysphagia, No sore throat, No other Respiratory: No no complaints, No pain, No cough, No pleuritic pain, No shortness of breath, No sputum, No wheezing, No other Cardiovascular: No no complaints, No chest pain, No edema, No lightheadedness, No orthopenea, No palpitations, No paroxysmal nocturnal dyspnea, No other Gastrointestinal: no complaints, pain, blood, constipation, decreased appetite, diarrhea, flatus, nausea, passing stool, vomiting, other Musculoskeletal: No no complaints, No back pain, No bone/joint pain, No neck pain, No restricted range of motion, No swelling, No other Skin: No no complaints, No bruising, No erythema, No laceration, No pruritis, No rash, No skin lesions, No other PMH/Family/Social Past Medical History Medications Current Medications Ondansetron HCl (Zofran Inj) 4 mg BRIDGE ORDER PRN IV NAUSEA/VOMITING; Start 02/01/19 at 10:00; Stop 02/02/19 at 09:59 Acetaminophen (Tylenol Tab) 650 mg ER BRIDGE PRN PO .MILD PAIN 1-3 OR TEMP; Start 02/01/19 at 10:00; Stop 02/02/19 at 09:59 Coded Allergies: Penicillins (Verified Allergy, Unknown, 02/01/19) iodine (Verified Allergy, Unknown, 02/01/19) Social History Smoking Status: Never smoker Exam/Review of Systems Vital Signs Vitals Vital Signs Date Temp Pulse Resp B/P (MAP) Pulse Ox O2 O2 Flow FiO2 Time Delivery Rate 02/01/19 98.1 79 18 146/79 99 09:10 (101) Exam Constitutional: alert, oriented Psych: nl mood/affect Head: normocephalic, atraumatic Eyes: nl conjunctiva, EOMI ENMT: nl external ears & nose, nl lips & teeth Neck: supple, non-tender Respiratory: clear to auscultation, normal air movement Cardiovascular: regular rate and rhythm, nl pulses Gastrointestinal: soft, tender (to mild palp midepig... NO zeeshan... NO HSM) Musculoskeletal: nl extremities to inspection Extremities: calf tenderness (none) HOWARD DUNCAN MD Feb 01, 2019 10:51
[2019-02-01] MEDS ORDERED: HYDROCODONE/APAP (10/325) TAB PO PRN (11:00)
[2019-02-01] MEDS ORDERED: DIAZEPAM 5 MG TAB PO PRN (11:00)
--- NOTE | 2019-02-01 11:01 | ERD ---
ER Documentation Chief Complaint Chief Complaint ap since thursday, seen here before c/o same HPI Patient is a 68-year-old female with hypertension who presents for abdominal pain. The patient was recently admitted on January 28 and was discharged on January 30. The patient has mid abdominal pain which radiates to the right flank. The pat ient is using [place] for pain but still having pain. She called her primary doctor Dr. Bazzi who told the patient to come to the emergency department for readmission. The patient felt like she was discharged too early. Upon review of old medical records this is the patient's fourth visit to the ER since 2012. Review of the emergency department information exchange system shows visits to 2 separate emergency departments for a total of 4 visits over the past 1 year. She has had her appendix removed in the past. ROS All systems reviewed and are negative except as per history of present illness. Medications Home Meds Reported Medications Travoprost* (Travatan*) 0.004%-2.5 Ml Opht, 1 DROP BOTH EYES QHS, #1 BOTTLE 02/01/19 Potassium Chloride* (Potassium Chloride*) 20 Meq Tablet.er, 20 MEQ PO DAILY, TAB.SA 02/01/19 Magnesium Oxide (Magnesium) 500 Mg Capsule, 250 MG PO BID, CAP 02/01/19 Cholecalciferol (Vitamin D3) 5,000 Unit Tablet, 5000 UNIT PO DAILY, TAB 02/01/19 Atorvastatin Calcium (Atorvastatin Calcium) 10 Mg Tablet, 10 MG PO QHS, #30 TAB 02/01/19 Ropinirole Hcl* (Ropinirole Hcl*) 1 Mg Tablet, 1 MG PO BID, TAB TAKE 1 TAB- 1PM AND 2TAB-QHS 02/01/19 Furosemide* (Furosemide*) 20 Mg Tablet, 20 MG PO DAILY, #60 TAB 02/01/19 Zolpidem Tartrate* (Ambien*) 5 Mg Tablet, 5 MG PO NEEDED for INSOMNIA, #30 TAB 01/29/19 Docusate Sodium* (Colace*) 100 Mg Capsule, 100 MG PO BID, #60 CAP 01/29/19 Hydrocodone/Acetaminophen ([place] 10-325 Tablet) 1 Each Tablet, 1 EACH PO PRN for PAIN, TAB 01/29/19 Diclofenac Sodium* (Voltaren* Gel) 1% -100 Gm Gel, 2 GM TOP BID for FEET AND LEGS., #1 TUB 01/29/19 Diazepam* (Diazepam*) 10 Mg Tablet, 10 MG PO NEEDED, TAB 01/29/19 Clopidogrel Bisulfate (Clopidogrel) 75 Mg Tablet, 75 MG PO at night, #30 TAB 01/29/19 Lactobacillus Combo No.11 (Probiotic) 1 Each Cap.sprink, 1 CAP PO at night, CAP 01/29/19 Folic Acid (Folic Acid) 0.8 Mg Capsule, 0.8 MG PO DAILY, CAP 01/29/19 Multivitamin/Iron/Folic Acid (MULTI-DAY PLUS IRON TABLET) 1 Each Tablet, 1 EACH PO DAILY, TAB 01/29/19 Metoprolol Tartrate* (Lopressor*) 50 Mg Tab, 50 MG PO BID, #60 TAB 01/29/19 Aspirin Ec (Aspir 81) 81 Mg Tablet.dr, 81 MG PO DAILY, #30 TAB 01/29/19 Amlodipine Besylate* (Amlodipine Besylate*) 2.5 Mg Tablet, 2.5 MG PO DAILY, #30 TAB 01/29/19 Discontinued Reported Medications Cholecalciferol* (Vitamin D3*) 1,000 Unit Tablet, 5000 UNIT PO at bedtime, TAB 01/29/19 Potassium Chloride* (Potassium Chloride*) 20 Meq/15 Ml Liquid, 20 MEQ PO DAILY, ML 01/29/19 Atorvastatin* (Atorvastatin*) 40 Mg Tablet, 10 MG PO QHS, #30 TAB 01/29/19 Magnesium Oxide* (Magnesium Oxide*) 400 Mg Tablet, 250 MG PO BID, TAB 01/29/19 Citalopram Hydrobromide* (Citalopram Hydrobromide*) 40 Mg Tablet, 20 MG PO DAILY 01/31/13 Amlodipine Besylate (AMLODIPINE BESYLATE) 1 Gm Powder, 5 MG MC every other day 01/31/13 Furosemide* (Furosemide*) 20 Mg Tablet, 20 MG PO DAILY 01/31/13 Hydrocodone Bit-Acetaminophen (Hydrocodone Bit-Acetaminophen) 1 Each Tablet, 1 EACH PO QID 01/31/13 Nadolol (Nadolol) 40 Mg Tablet, 40 MG PO DAILY 01/31/13 Estradiol (Estradiol) 100 Gm Powder, 0.5 MG PO DAILY 01/31/13 Omeprazole* (Omeprazole*) 40 Mg Capsule.dr, 40 MG PO 01/31/13 Discontinued Scripts Hydrocodone/Acetaminophen ([place] 5-325 Tablet) 1 Each Tablet, 1 TAB PO TID PRN for PAIN, #6 TAB Prov:SONY CANNON MD 01/28/19 Ibuprofen* (Motrin*) 600 Mg Tab, 600 MG PO Q8 PRN for PAIN AND/OR INFLAMMATION, #30 TAB Prov:SONY CANNON MD 01/28/19 Ondansetron Hcl* (Zofran*) 4 Mg Tablet, 4 MG PO Q8H PRN for NAUSEA AND/OR VOMITING, #30 TAB Prov:SONY CANNON MD 01/28/19 Allergies Allergies: Coded Allergies: Penicillins (Verified Allergy, Unknown, 02/01/19) iodine (Verified Allergy, Unknown, 02/01/19) PMhx/Soc History of Surgery: Yes (open heart sx,lumbar sx, rt knee revised sx,rt shoulder tear 2x,hysterectom) Anesthesia Reaction: No Hx Neurological Disorder: No Hx Respiratory Disorders: No Hx Cardiac Disorders: Yes (HTN,RHEUMATIC FEVER, HYPERCHOLESTEROL) Hx Psychiatric Problems: Yes (ANXIETY) Hx Miscellaneous Medical Probl: No Hx Alcohol Use: No Hx Substance Use: No Hx Tobacco Use: No Smoking Status: Never smoker FmHx Family History: No diabetes Physical Exam Vitals Vital Signs Date Temp Pulse Resp B/P (MAP) Pulse Ox O2 O2 Flow FiO2 Time Delivery Rate 02/01/19 98.1 79 18 146/79 99 09:10 (101) Physical Exam Const: Moderate distress Head: Atraumatic Eyes: Normal Conjunctiva ENT: Normal External Ears, Nose and Mouth. Neck: Full range of motion. No meningismus. Resp: Clear to auscultation bilaterally Cardio: Regular rate and rhythm, no murmurs Abd: Diffuse tenderness to palpation with pain out of proportion to exam Skin: No petechiae or rashes Back: No midline or flank tenderness Ext: No cyanosis, or edema Neur: Awake and alert Psych: Normal Mood and Affect Result Diagram: 02/01/1949 02/01/1949 Results 24 hrs Laboratory Tests Test 02/01/19 09:49 White Blood Count 7.1 10^3/ul Red Blood Count 4.63 10^6/ul Hemoglobin 12.8 g/dl Hematocrit 39.6 % Mean Corpuscular Volume 85.5 fl Mean Corpuscular Hemoglobin 27.6 pg Mean Corpuscular Hemoglobin Concent 32.3 g/dl Red Cell Distribution Width 14.7 % Platelet Count 208 10^3/UL Mean Platelet Volume 8.9 fl Immature Granulocytes % 0.300 % Neutrophils % 71.2 % Lymphocytes % 16.6 % Monocytes % 9.7 % Eosinophils % 1.8 % Basophils % 0.4 % Nucleated Red Blood Cells % 0.0 /100WBC Immature Granulocytes # 0.020 10^3/ul Neutrophils # 5.1 10^3/ul Lymphocytes # 1.2 10^3/ul Monocytes # 0.7 10^3/ul Eosinophils # 0.1 10^3/ul Basophils # 0.0 10^3/ul Nucleated Red Blood Cells # 0.0 10^3/ul Urine Color YELLOW Urine Clarity CLEAR Urine pH 7.0 Urine Specific [place] 1.009 Urine Ketones NEGATIVE mg/dL Urine Nitrite NEGATIVE mg/dL Urine Bilirubin NEGATIVE mg/dL Urine Urobilinogen NEGATIVE mg/dL Urine Leukocyte Esterase NEGATIVE [place]/ul Urine Hemoglobin NEGATIVE mg/dL Urine Glucose NEGATIVE mg/dL Urine Total Protein NEGATIVE mg/dl Sodium Level 141 mmol/L Potassium Level 3.9 mmol/L Chloride Level 101 mmol/L Carbon Dioxide Level 30 mmol/L Anion Gap 10 Blood Urea Nitrogen 9 mg/dl Creatinine 0.89 mg/dl Est Glomerular Filtrat Rate mL/min > 60 mL/min Glucose Level 81 mg/dl Calcium Level 9.6 mg/dl Total Bilirubin 0.4 mg/dl Direct Bilirubin 0.00 mg/dl Indirect Bilirubin 0.4 mg/dl Aspartate Amino Transf (AST/SGOT) 23 IU/L Alanine Aminotransferase (ALT/SGPT) 20 IU/L Alkaline Phosphatase 84 IU/L Total Protein 8.5 g/dl Albumin 4.2 g/dl Globulin 4.30 g/dl Albumin/Globulin Ratio 0.97 Lipase 28 U/L Current Medications Medications Dose Sig/Hubert Start Time Status Last (Trade) Ordered Route PRN Stop Time Admin Dose Reason Admin Morphine 4 mg ONCE STAT 02/01/19 DC 02/01/19 Sulfate IV 09:34 02/01/19 09:52 (morphine) 09:35 Ondansetron 4 mg ONCE STAT 02/01/19 DC 02/01/19 HCl (Zofran IV 09:34 02/01/19 09:52 Inj) 09:35 Ondansetron 4 mg BRIDGE ORDER 02/01/19 HCl (Zofran PRN IV 10:00 Inj) NAUSEA/VOMITI 02/02/19 09:59 NG 650 mg ER BRIDGE 02/01/19 Acetaminophen PRN PO 10:00 (Tylenol .MILD PAIN 02/02/19 09:59 Tab) 1-3 OR TEMP Procedures/MDM Patient is a 68-year-old female presents with acute abdominal pain. Laboratory studies are normal including white blood cell count, LFTs, and lipase. Urinalysis is negative. The patient had 2 CT scans one on January 28 and one on January 29. She also had an ultrasound done on January 29. I spoke with the patient's primary doctor who will admit her to a medical surgical bed for pain control. She was given morphine and Zofran. At this point I doubt pancreatitis, appendicitis, or bowel obstruction. She may require further work-up for possible cholecystitis although this was not shown on the recent ultrasound. Departure Diagnosis: Primary Impression: Abdominal pain Abdominal location: generalized Qualified Codes: R10.84 - Generalized abdominal pain Condition: JOANIE Pierre MD Feb 01, 2019 11:01
[2019-02-01] MEDS ORDERED: SOD CHLORIDE 0.9% 1,000 ML IV STA (11:42)
[2019-02-01 11:52] VITALS: Ht 170.2 cm; Wt 63.0 kg
[2019-02-01 12:01] VITALS: BP 148/71; PULSE 71; RESP 18
[2019-02-01] MEDS ORDERED: LIDO700A29 TP (13:54)
[2019-02-01 14:00] VITALS: BP 135/86; PULSE 74; RESP 19
[2019-02-01] MEDS: morphine 2 MG INJ IV PRN ×2 (14:04→19:59)
--- NOTE | 2019-02-01 17:25 | CONS ---
Assessment/Plan Assessment/Plan Hospital Course (Demo Recall) 1. Abdominal pain with concern for cholecystitis; DDX: Cholecystitis versus mesenteric panniculitis versus PUD versus other - HIDA scan with delayed imaging as patient is taking narcotic medication -Agree with endoscopy -Pain management 2. Supportive hypertension -Medical management 3. Anxiety -Psychiatric optimization 4. Back pain status post spine surgery -Pain management -Supportive Thank you. Patient seen and examined in collaboration with Dr. Alistair Angel. Consultation Date/Type/Reason Admit Date/Time Date of Consultation: Feb 01, 2019 Type of Consult Surgical Reason for Consultation abdominal pain, concern for cholecystitis Requesting Provider: SHIVAM BOONE MD Date/Time of Note DATE: 02/01/19 TIME: 17:06 Hx of Present Illness Fatmata Ahuja is a 68-year-old woman who was admitted with complaints of ab dominal pain. She presented to the ED a few days prior with the similar complaints however work-up was negative she was subsequently sent home. She again presents with abdominal pain. Reportedly abdominal pain began on January 27 after eating a hot dog. Pain is described as strong and unrelenting, radiating from her back to the right abdominal region. Alleviating factors include pain medication as well as repositioning. She denies aggravating factors, particularly no prandial associations. Associated symptoms include nausea without vomiting, as well as constipation. She denies fevers, chills, congested cough, chest pain, palpitations, diarrhea, dysuria, neurologic symptoms, change in scleral or skin coloration. Laboratory findings are unremarkable. Imaging of the abdomen performed on 01/29/2019 show some pericholecystic fluid without gallbladder distention or stones, however there is concern for mesenteric panniculitis. Gallbladder ultrasound shows probable small sludge within gal lbladder neck without cholelithiasis or gallbladder wall thickening. General surgery was asked to evaluate 12 point review of systems was performed and is negative except for as stated in HPI. Past Medical History Valvular heart disease Open heart surgery Right knee surgery Lumbar surgery MVR AVR Hysterectomy hypertension Bilateral shoulder surgery anxiety Home Meds Reported Medications Lidocaine (Lidoderm) 1 Each Adh..patch, 1 EACH TP DAILY for leg pain 12 hrs on, 12 hrs off 02/01/19 Travoprost* (Travatan*) 0.004%-2.5 Ml Opht, 1 DROP BOTH EYES QHS, #1 BOTTLE 02/01/19 Potassium Chloride* (Potassium Chloride*) 20 Meq Tablet.er, 20 MEQ PO DAILY, TAB.SA 02/01/19 Magnesium Oxide (Magnesium) 500 Mg Capsule, 250 MG PO BID, CAP 02/01/19 Cholecalciferol (Vitamin D3) 5,000 Unit Tablet, 5000 UNIT PO DAILY, TAB 02/01/19 Atorvastatin Calcium (Atorvastatin Calcium) 10 Mg Tablet, 10 MG PO QHS, #30 TAB 02/01/19 Ropinirole Hcl* (Ropinirole Hcl*) 1 Mg Tablet, 1 MG PO BID, TAB TAKE 1 TAB- 1PM AND 2TAB-QHS 02/01/19 Furosemide* (Furosemide*) 20 Mg Tablet, 20 MG PO DAILY, #60 TAB 02/01/19 Zolpidem Tartrate* (Ambien*) 5 Mg Tablet, 5 MG PO NEEDED for INSOMNIA, #30 TAB 01/29/19 Docusate Sodium* (Colace*) 100 Mg Capsule, 100 MG PO BID, #60 CAP 01/29/19 Hydrocodone/Acetaminophen ([place] 10-325 Tablet) 1 Each Tablet, 1 EACH PO PRN for PAIN, TAB 01/29/19 Diclofenac Sodium* (Voltaren* Gel) 1% -100 Gm Gel, 2 GM TOP BID PRN for PAIN, #1 TUB 01/29/19 Diazepam* (Diazepam*) 10 Mg Tablet, 10 MG PO NEEDED, TAB 01/29/19 Clopidogrel Bisulfate (Clopidogrel) 75 Mg Tablet, 75 MG PO at night, #30 TAB 01/29/19 Lactobacillus Combo No.11 (Probiotic) 1 Each Cap.sprink, 1 CAP PO at night, CAP 01/29/19 Folic Acid (Folic Acid) 0.8 Mg Capsule, 0.8 MG PO DAILY, CAP 01/29/19 Multivitamin/Iron/Folic Acid (MULTI-DAY PLUS IRON TABLET) 1 Each Tablet, 1 EACH PO DAILY, TAB 01/29/19 Metoprolol Tartrate* (Lopressor*) 50 Mg Tab, 50 MG PO BID, #60 TAB 01/29/19 Aspirin Ec (Aspir 81) 81 Mg Tablet.dr, 81 MG PO DAILY, #30 TAB 01/29/19 Amlodipine Besylate* (Amlodipine Besylate*) 2.5 Mg Tablet, 2.5 MG PO DAILY, #30 TAB 01/29/19 Discontinued Reported Medications Cholecalciferol* (Vitamin D3*) 1,000 Unit Tablet, 5000 UNIT PO at bedtime, TAB 01/29/19 Potassium Chloride* (Potassium Chloride*) 20 Meq/15 Ml Liquid, 20 MEQ PO DAILY, ML 01/29/19 Atorvastatin* (Atorvastatin*) 40 Mg Tablet, 10 MG PO QHS, #30 TAB 01/29/19 Magnesium Oxide* (Magnesium Oxide*) 400 Mg Tablet, 250 MG PO BID, TAB 01/29/19 Citalopram Hydrobromide* (Citalopram Hydrobromide*) 40 Mg Tablet, 20 MG PO DAILY 01/31/13 Amlodipine Besylate (AMLODIPINE BESYLATE) 1 Gm Powder, 5 MG MC every other day 01/31/13 Furosemide* (Furosemide*) 20 Mg Tablet, 20 MG PO DAILY 01/31/13 Hydrocodone Bit-Acetaminophen (Hydrocodone Bit-Acetaminophen) 1 Each Tablet, 1 EACH PO QID 01/31/13 Nadolol (Nadolol) 40 Mg Tablet, 40 MG PO DAILY 01/31/13 Estradiol (Estradiol) 100 Gm Powder, 0.5 MG PO DAILY 01/31/13 Omeprazole* (Omeprazole*) 40 Mg Capsule.dr, 40 MG PO 01/31/13 Discontinued Scripts Hydrocodone/Acetaminophen ([place] 5-325 Tablet) 1 Each Tablet, 1 TAB PO TID PRN for PAIN, #6 TAB Prov:SONY CANNON MD 01/28/19 Ibuprofen* (Motrin*) 600 Mg Tab, 600 MG PO Q8 PRN for PAIN AND/OR INFLAMMATION, #30 TAB Prov:SONY CANNON MD 01/28/19 Ondansetron Hcl* (Zofran*) 4 Mg Tablet, 4 MG PO Q8H PRN for NAUSEA AND/OR VOMITING, #30 TAB Prov:SONY CANNON MD 01/28/19 Medications Current Medications Ondansetron HCl (Zofran Inj) 4 mg BRIDGE ORDER PRN IV NAUSEA/VOMITING; Start 02/01/19 at 10:00; Stop 02/02/19 at 09:59 Acetaminophen (Tylenol Tab) 650 mg ER BRIDGE PRN PO .MILD PAIN 1-3 OR TEMP; Start 02/01/19 at 10:00; Stop 02/02/19 at 09:59 Amlodipine Besylate (Norvasc) 2.5 mg DAILY PO ; Start 02/02/19 at 09:00 Aspirin (Halfprin) 81 mg DAILY PO ; Start 02/02/19 at 09:00 Atorvastatin Calcium (Lipitor) 10 mg QHS PO ; Start 02/01/19 at 21:00 Cholecalciferol (Vitamin D) 5,000 unit DAILY PO ; Start 02/02/19 at 09:00 Diazepam (Valium) 10 mg Q6 PRN PO ANXIETY; Start 02/01/19 at 11:00 Docusate Sodium (Colace) 100 mg BID PO ; Start 02/01/19 at 21:00 Furosemide (Lasix) 20 mg DAILY PO ; Start 02/02/19 at 09:00 Metoprolol Tartrate (Lopressor) 50 mg BID PO ; Start 02/01/19 at 21:00 Potassium Chloride (Klor-Con 20) 20 meq DAILY PO ; Start 02/02/19 at 09:00 Ropinirole HCl (Requip) 1 mg BID PO ; Start 02/01/19 at 21:00 Zolpidem Tartrate (Ambien) 5 mg HS PO ; Start 02/01/19 at 21:00 Folic Acid (Folic Acid) 0.8 mg DAILY PO ; Start 02/02/19 at 09:00 Multivitamins Therapeutic (Theragran) 1 tab DAILY PO ; Start 02/02/19 at 09:00 Sodium Chloride 1,000 ml @ 100 mls/hr Q10H STAT IV Last administered on 02/01/19at 12:19; Admin Dose 100 MLS/HR; Start 02/01/19 at 11:42; Stop 02/01/19 at 21:41 Acetaminophen/ Hydrocodone Bitart ([place] (10/325)) 1 tab Q6H PRN PO PAIN LEVEL 4-6; Start 02/01/19 at 13:00 Latanoprost (Xalatan) 1 drop QHS BOTH EYES ; Start 02/01/19 at 21:00 Morphine Sulfate (morphine) 2 mg Q6H PRN IV SEVERE PAIN LEVEL 7-10 Last administered on 02/01/19at 14:04; Admin Dose 2 MG; Start 02/01/19 at 13:00 Allergies: Coded Allergies: shellfish derived (Verified Allergy, Severe, swelling, 02/01/19) Shrimp shrimp (Verified Allergy, Severe, facial swelling, 02/01/19) white head shrimp Penicillins (Verified Allergy, Unknown, 02/01/19) iodine (Verified Allergy, Unknown, 02/01/19) Social History Smoking Status: Never smoker Exam/Review of Systems Exam Vitals Vital Signs Date Temp Pulse Resp B/P (MAP) Pulse Ox O2 O2 Flow FiO2 Time Delivery Rate 02/01/19 97.9 74 19 135/86 99 Room Air 14:00 (102) Constitutional: alert, oriented Psych: anxiety (Minimal) Head: normocephalic, atraumatic Eyes: nl conjunctiva, EOMI, nl lids, nl sclera ENMT: nl external ears & nose, nl lips & teeth, mucosa pink and moist Neck: supple, non-tender; No jvd Respiratory: normal air movement; No congested cough Cardiovascular: regular rate and rhythm Gastrointestinal: soft, distended (Minimal), tender (Midepigastric), other (Negative [place] by palpation; umbilical hernia); No firm, No rebound or guarding Genitourinary - Female: nl external genitalia Musculoskeletal: nl extremities to inspection Extremities: normal pulses Neurological: nl mental status, nl speech, nl strength Skin: nl turgor; No rash or lesions Lymph: nl lymph nodes Results Result Diagram: 02/01/1949 02/01/1949 Results 24hrs Laboratory Tests Test 02/01/19 09:49 White Blood Count 7.1 # Red Blood Count 4.63 Hemoglobin 12.8 Hematocrit 39.6 Mean Corpuscular Volume 85.5 Mean Corpuscular Hemoglobin 27.6 L Mean Corpuscular Hemoglobin Concent 32.3 Red Cell Distribution Width 14.7 H Platelet Count 208 Mean Platelet Volume 8.9 Immature Granulocytes % 0.300 Neutrophils % 71.2 Lymphocytes % 16.6 Monocytes % 9.7 Eosinophils % 1.8 Basophils % 0.4 Nucleated Red Blood Cells % 0.0 Immature Granulocytes # 0.020 Neutrophils # 5.1 Lymphocytes # 1.2 Monocytes # 0.7 Eosinophils # 0.1 Basophils # 0.0 Nucleated Red Blood Cells # 0.0 Urine Color YELLOW Urine Clarity CLEAR Urine pH 7.0 Urine Specific [place] 1.009 Urine Ketones NEGATIVE Urine Nitrite NEGATIVE Urine Bilirubin NEGATIVE Urine Urobilinogen NEGATIVE Urine Leukocyte Esterase NEGATIVE Urine Hemoglobin NEGATIVE Urine Glucose NEGATIVE Urine Total Protein NEGATIVE Sodium Level 141 Potassium Level 3.9 Chloride Level 101 Carbon Dioxide Level 30 Anion Gap 10 Blood Urea Nitrogen 9 Creatinine 0.89 Est Glomerular Filtrat Rate mL/min > 60 Glucose Level 81 Calcium Level 9.6 Total Bilirubin 0.4 Direct Bilirubin 0.00 Indirect Bilirubin 0.4 Aspartate Amino Transf (AST/SGOT) 23 Alanine Aminotransferase (ALT/SGPT) 20 Alkaline Phosphatase 84 Total Protein 8.5 H Albumin 4.2 Globulin 4.30 H Albumin/Globulin Ratio 0.97 Lipase 28 Medications Medication Current Medications Ondansetron HCl (Zofran Inj) 4 mg BRIDGE ORDER PRN IV NAUSEA/VOMITING; Start 02/01/19 at 10:00; Stop 02/02/19 at 09:59 Acetaminophen (Tylenol Tab) 650 mg ER BRIDGE PRN PO .MILD PAIN 1-3 OR TEMP; Start 02/01/19 at 10:00; Stop 02/02/19 at 09:59 Amlodipine Besylate (Norvasc) 2.5 mg DAILY PO ; Start 02/02/19 at 09:00 Aspirin (Halfprin) 81 mg DAILY PO ; Start 02/02/19 at 09:00 Atorvastatin Calcium (Lipitor) 10 mg QHS PO ; Start 02/01/19 at 21:00 Cholecalciferol (Vitamin D) 5,000 unit DAILY PO ; Start 02/02/19 at 09:00 Diazepam (Valium) 10 mg Q6 PRN PO ANXIETY; Start 02/01/19 at 11:00 Docusate Sodium (Colace) 100 mg BID PO ; Start 02/01/19 at 21:00 Furosemide (Lasix) 20 mg DAILY PO ; Start 02/02/19 at 09:00 Metoprolol Tartrate (Lopressor) 50 mg BID PO ; Start 02/01/19 at 21:00 Potassium Chloride (Klor-Con 20) 20 meq DAILY PO ; Start 02/02/19 at 09:00 Ropinirole HCl (Requip) 1 mg BID PO ; Start 02/01/19 at 21:00 Zolpidem Tartrate (Ambien) 5 mg HS PO ; Start 02/01/19 at 21:00 Folic Acid (Folic Acid) 0.8 mg DAILY PO ; Start 02/02/19 at 09:00 Multivitamins Therapeutic (Theragran) 1 tab DAILY PO ; Start 02/02/19 at 09:00 Sodium Chloride 1,000 ml @ 100 mls/hr Q10H STAT IV Last administered on 02/01/19at 12:19; Admin Dose 100 MLS/HR; Start 02/01/19 at 11:42; Stop 02/01/19 at 21:41 Acetaminophen/ Hydrocodone Bitart ([place] (10/)) 1 tab Q6H PRN PO PAIN LEVEL 4-6; Start 02/01/19 at 13:00 Latanoprost (Xalatan) 1 drop QHS BOTH EYES ; Start 02/01/19 at 21:00 Morphine Sulfate (morphine) 2 mg Q6H PRN IV SEVERE PAIN LEVEL 7-10 Last administered on 02/01/19at 14:04; Admin Dose 2 MG; Start 02/01/19 at 13:00 JEAN-CLAUDE BACK NP Feb 01, 2019 17:17
[2019-02-01 17:41] VITALS: BP 145/75; PULSE 71
[2019-02-01 19:56] VITALS: BP 173/91; PULSE 79; RESP 18
[2019-02-01] MEDS ORDERED: TRAVOPROST 0.004% 2.5 ML OPH BOTH EYES SCH (21:00)
[2019-02-01] MEDS: DOCUSATE SODIUM 100 MG CAP PO SCH (21:55)
[2019-02-01] MEDS: HYDROCODONE/APAP (10/325) TAB PO PRN (21:56)
[2019-02-01] MEDS: ZOLPIDEM 5 MG TAB PO SCH (21:56)
[2019-02-01] MEDS: ATORVASTATIN 10 MG TAB PO SCH (21:56)
[2019-02-01] MEDS: METOPROLOL 50 MG TAB PO SCH (21:57)
[2019-02-01] MEDS: LATANOPROST 0.005% 2.5 ML OPH BOTH EYES SCH (23:10)
[2019-02-01] MEDS: ROPINIROLE 1 MG TAB PO SCH (23:10)
[2019-02-02] VITALS (12 sets, daily range): BP systolic 114–137; BP diastolic 60–79; PULSE 63–84; RESP 16–18
[2019-02-02] MEDS: morphine 2 MG INJ IV PRN ×4 (02:57→21:03)
[2019-02-02] MEDS: HYDROCODONE/APAP (10/325) TAB PO PRN ×2 (06:36→23:33)
--- NOTE | 2019-02-02 08:54 | PN ---
Date/Time of Note Date/Time of Note DATE: 02/02/19 TIME: 08:51 Assessment/Plan VTE Prophylaxis Risk score (from Ns)>0 risk: 3 SCD applied (from Ns): Yes Pharmacological prophylaxis: NA/contraindicated (to hav gi procedure today) Pharm contraindication: other (to have gi procedure today) Lines/Catheters IV Catheter Type (from Nrs): [place] Lock Assessment/Plan Assessment/Plan 1. Abd pain cause unclear, await gi follow up, consider primary back pathology but atypical as well for compression fx or other 2. Valvular Ht dz 3. I stopped lasix and kcl for the moment given npo and gi procedure Result Diagram: 02/02/1943702/02/19437 Results 24hrs Laboratory Tests Test 02/01/19 09:49 02/02/19 04:38 White Blood Count 7.1 # 6.7 Red Blood Count 4.63 4.08 L Hemoglobin 12.8 11.6 L Hematocrit 39.6 34.9 L Mean Corpuscular Volume 85.5 85.5 Mean Corpuscular Hemoglobin 27.6 L 28.4 L Mean Corpuscular Hemoglobin Concent 32.3 33.2 Red Cell Distribution Width 14.7 H 14.4 Platelet Count 208 206 Mean Platelet Volume 8.9 9.3 Immature Granulocytes % 0.300 0.300 Neutrophils % 71.2 57.3 Lymphocytes % 16.6 28.8 Monocytes % 9.7 10.7 Eosinophils % 1.8 2.5 Basophils % 0.4 0.4 Nucleated Red Blood Cells % 0.0 0.0 Immature Granulocytes # 0.020 0.020 Neutrophils # 5.1 3.8 Lymphocytes # 1.2 1.9 Monocytes # 0.7 0.7 Eosinophils # 0.1 0.2 Basophils # 0.0 0.0 Nucleated Red Blood Cells # 0.0 0.0 Urine Color YELLOW Urine Clarity CLEAR Urine pH 7.0 Urine Specific [place] 1.009 Urine Ketones NEGATIVE Urine Nitrite NEGATIVE Urine Bilirubin NEGATIVE Urine Urobilinogen NEGATIVE Urine Leukocyte Esterase NEGATIVE Urine Hemoglobin NEGATIVE Urine Glucose NEGATIVE Urine Total Protein NEGATIVE Sodium Level 141 139 Potassium Level 3.9 4.1 Chloride Level 101 105 Carbon Dioxide Level 30 25 Anion Gap 10 9 Blood Urea Nitrogen 9 8 Creatinine 0.89 0.85 Est Glomerular Filtrat Rate mL/min > 60 > 60 Glucose Level 81 74 Calcium Level 9.6 9.2 Total Bilirubin 0.4 0.4 Direct Bilirubin 0.00 0.00 Indirect Bilirubin 0.4 0.4 Aspartate Amino Transf (AST/SGOT) 23 20 Alanine Aminotransferase (ALT/SGPT) 20 18 Alkaline Phosphatase 84 79 Total Protein 8.5 H 7.5 # Albumin 4.2 3.7 Globulin 4.30 H 3.80 H Albumin/Globulin Ratio 0.97 0.97 Lipase 28 15 L Erythrocyte Sedimentation Rate 35 H Amylase Level 57 Subjective 24 Hr Interval Summary Respiratory: No cough Cardiovascular: No chest pain, No orthopenea, No palpitations Gastrointestinal: other (upper abd pain with at times circumferential abd discomfort with back pain radiaiting to left upper quad and to epig area, initial onset of pain occured after pc hot dog) Genitourinary: no complaints Exam/Review of Systems Exam Vitals Vital Signs Date Temp Pulse Resp B/P (MAP) Pulse Ox O2 O2 Flow FiO2 Time Delivery Rate 02/02/19 98.7 73 18 126/77 98 07:20 (93) 02/01/19 Room Air 14:00 Intake and Output 02/01/19 02/01/19 02/02/19 1515:00 23:00 07:00 IntakeIntake Total 450 ml BalanceBalance 450 ml Neck: No jvd Respiratory: clear to auscultation Cardiovascular: regular rate and rhythm Gastrointestinal: other (mild right ant lumbar abd pain) Results Results 24hrs Laboratory Tests Test 02/01/19 09:49 02/02/19 04:38 White Blood Count 7.1 # 6.7 Red Blood Count 4.63 4.08 L Hemoglobin 12.8 11.6 L Hematocrit 39.6 34.9 L Mean Corpuscular Volume 85.5 85.5 Mean Corpuscular Hemoglobin 27.6 L 28.4 L Mean Corpuscular Hemoglobin Concent 32.3 33.2 Red Cell Distribution Width 14.7 H 14.4 Platelet Count 208 206 Mean Platelet Volume 8.9 9.3 Immature Granulocytes % 0.300 0.300 Neutrophils % 71.2 57.3 Lymphocytes % 16.6 28.8 Monocytes % 9.7 10.7 Eosinophils % 1.8 2.5 Basophils % 0.4 0.4 Nucleated Red Blood Cells % 0.0 0.0 Immature Granulocytes # 0.020 0.020 Neutrophils # 5.1 3.8 Lymphocytes # 1.2 1.9 Monocytes # 0.7 0.7 Eosinophils # 0.1 0.2 Basophils # 0.0 0.0 Nucleated Red Blood Cells # 0.0 0.0 Urine Color YELLOW Urine Clarity CLEAR Urine pH 7.0 Urine Specific [place] 1.009 Urine Ketones NEGATIVE Urine Nitrite NEGATIVE Urine Bilirubin NEGATIVE Urine Urobilinogen NEGATIVE Urine Leukocyte Esterase NEGATIVE Urine Hemoglobin NEGATIVE Urine Glucose NEGATIVE Urine Total Protein NEGATIVE Sodium Level 141 139 Potassium Level 3.9 4.1 Chloride Level 101 105 Carbon Dioxide Level 30 25 Anion Gap 10 9 Blood Urea Nitrogen 9 8 Creatinine 0.89 0.85 Est Glomerular Filtrat Rate mL/min > 60 > 60 Glucose Level 81 74 Calcium Level 9.6 9.2 Total Bilirubin 0.4 0.4 Direct Bilirubin 0.00 0.00 Indirect Bilirubin 0.4 0.4 Aspartate Amino Transf (AST/SGOT) 23 20 Alanine Aminotransferase (ALT/SGPT) 20 18 Alkaline Phosphatase 84 79 Total Protein 8.5 H 7.5 # Albumin 4.2 3.7 Globulin 4.30 H 3.80 H Albumin/Globulin Ratio 0.97 0.97 Lipase 28 15 L Erythrocyte Sedimentation Rate 35 H Amylase Level 57 Medications Medication Current Medications Ondansetron HCl (Zofran Inj) 4 mg BRIDGE ORDER PRN IV NAUSEA/VOMITING Last administered on 02/01/19at 17:35; Admin Dose 4 MG; Start 02/01/19 at 10:00; Stop 02/02/19 at 09:59 Acetaminophen (Tylenol Tab) 650 mg ER BRIDGE PRN PO .MILD PAIN 1-3 OR TEMP; Start 02/01/19 at 10:00; Stop 02/02/19 at 09:59 Amlodipine Besylate (Norvasc) 2.5 mg DAILY PO ; Start 02/02/19 at 09:00 Aspirin (Halfprin) 81 mg DAILY PO ; Start 02/02/19 at 09:00 Atorvastatin Calcium (Lipitor) 10 mg QHS PO Last administered on 02/01/19at 21:56 ; Admin Dose 10 MG; Start 02/01/19 at 21:00 Cholecalciferol (Vitamin D) 5,000 unit DAILY PO ; Start 02/02/19 at 09:00 Diazepam (Valium) 10 mg Q6 PRN PO ANXIETY; Start 02/01/19 at 11:00 Docusate Sodium (Colace) 100 mg BID PO Last administered on 02/01/19 21:55; Admin Dose 100 MG; Start 02/01/19 at 21:00 Furosemide (Lasix) 20 mg DAILY PO ; Start 02/02/19 at 09:00 Metoprolol Tartrate (Lopressor) 50 mg BID PO Last administered on 02/01/19 21:57; Admin Dose 50 MG; Start 02/01/19 at 21:00 Potassium Chloride (Klor-Con 20) 20 meq DAILY PO ; Start 02/02/19 at 09:00 Ropinirole HCl (Requip) 1 mg BID PO Last administered on 02/01/19 23:10; Admin Dose 1 MG; Start 02/01/19 at 21:00 Zolpidem Tartrate (Ambien) 5 mg HS PO Last administered on 02/01/19 21:56; Admin Dose 5 MG; Start 02/01/19 at 21:00 Folic Acid (Folic Acid) 0.8 mg DAILY PO ; Start 02/02/19 at 09:00 Multivitamins Therapeutic (Theragran) 1 tab DAILY PO ; Start 02/02/19 at 09:00 Acetaminophen/ Hydrocodone Bitart ([place] (10/325)) 1 tab Q6H PRN PO PAIN LEVEL 4-6 Last administered on 02/02/19 06:36; Admin Dose 1 TAB; Start 02/01/19 at 13:00 Latanoprost (Xalatan) 1 drop QHS BOTH EYES Last administered on 02/01/19 23:10; Admin Dose 1 DROP; Start 02/01/19 at 21:00 Morphine Sulfate (morphine) 2 mg Q6H PRN IV SEVERE PAIN LEVEL 7-10 Last admi nistered on 02/02/19 02:57; Admin Dose 2 MG; Start 02/01/19 at 13:00 HUMA CASTELLANO MD Feb 02, 2019 08:54
[2019-02-02] MEDS ORDERED: POTASSIUM CHLORIDE (SR) 20 MEQ TAB PO SCH (09:00)
[2019-02-02] MEDS ORDERED: FUROSEMIDE 20 MG TAB PO SCH (09:00)
[2019-02-02] MEDS: FOLIC ACID 0.4 MG TAB PO SCH (09:00)
[2019-02-02] MEDS: MULTIVITAMINS THERAPEUTIC TAB PO SCH (09:24)
[2019-02-02] MEDS: ROPINIROLE 1 MG TAB PO SCH ×2 (09:24→21:01)
[2019-02-02] MEDS: METOPROLOL 50 MG TAB PO SCH ×2 (09:24→21:02)
[2019-02-02] MEDS: CHOLECALCIFEROL 1,000 UNIT TAB PO SCH (09:24)
[2019-02-02] MEDS: ASPIRIN (EC) 81 MG TAB PO SCH (09:25)
[2019-02-02] MEDS: DOCUSATE SODIUM 100 MG CAP PO SCH ×2 (09:25→21:02)
[2019-02-02] MEDS: AMLODIPINE 2.5 MG TAB PO SCH (10:27)
[2019-02-02] MEDS ORDERED: ONDANSETRON 4 MG INJ IV PRN (11:00)
--- NOTE | 2019-02-02 13:45 | PREAC ---
Date/Time of Note Date/Time of Note DATE: 02/02/19 TIME: 13:44 Anesthesia Eval and Record Evaluation Time Pre-Procedure Interview DATE: 02/02/19 TIME: 13:44 Age 68 Sex female NPO: 8 hrs Preoperative diagnosis abd pain Planned procedure egd Past Medical History Past Medical History: Includes Cardio: HTN, Dyslipidemia, Other (AVR, MVR) Surgery & Anesthesia Issues No known issue Meds Anticoagulation: No Beta Twila within 24 hr: No Reason Beta Twila not given: Pt. not on B-Twila Reported Medications Lidocaine (Lidoderm) 1 Each Adh..patch, 1 EACH TP DAILY for leg pain 12 hrs on, 12 hrs off 02/01/19 Travoprost* (Travatan*) 0.004%-2.5 Ml Opht, 1 DROP BOTH EYES QHS, #1 BOTTLE 02/01/19 Potassium Chloride* (Potassium Chloride*) 20 Meq Tablet.er, 20 MEQ PO DAILY, TAB.SA 02/01/19 Magnesium Oxide (Magnesium) 500 Mg Capsule, 250 MG PO BID, CAP 02/01/19 Cholecalciferol (Vitamin D3) 5,000 Unit Tablet, 5000 UNIT PO DAILY, TAB 02/01/19 Atorvastatin Calcium (Atorvastatin Calcium) 10 Mg Tablet, 10 MG PO QHS, #30 TAB 02/01/19 Ropinirole Hcl* (Ropinirole Hcl*) 1 Mg Tablet, 1 MG PO BID, TAB TAKE 1 TAB- 1PM AND 2TAB-QHS 02/01/19 Furosemide* (Furosemide*) 20 Mg Tablet, 20 MG PO DAILY, #60 TAB 02/01/19 Zolpidem Tartrate* (Ambien*) 5 Mg Tablet, 5 MG PO NEEDED for INSOMNIA, #30 TAB 01/29/19 Docusate Sodium* (Colace*) 100 Mg Capsule, 100 MG PO BID, #60 CAP 01/29/19 Hydrocodone/Acetaminophen ([place] 10-325 Tablet) 1 Each Tablet, 1 EACH PO PRN for PAIN, TAB 01/29/19 Diclofenac Sodium* (Voltaren* Gel) 1% -100 Gm Gel, 2 GM TOP BID PRN for PAIN, #1 TUB 01/29/19 Diazepam* (Diazepam*) 10 Mg Tablet, 10 MG PO NEEDED, TAB 01/29/19 Clopidogrel Bisulfate (Clopidogrel) 75 Mg Tablet, 75 MG PO at night, #30 TAB 01/29/19 Lactobacillus Combo No.11 (Probiotic) 1 Each Cap.sprink, 1 CAP PO at night, CAP 01/29/19 Folic Acid (Folic Acid) 0.8 Mg Capsule, 0.8 MG PO DAILY, CAP 01/29/19 Multivitamin/Iron/Folic Acid (MULTI-DAY PLUS IRON TABLET) 1 Each Tablet, 1 EACH PO DAILY, TAB 01/29/19 Metoprolol Tartrate* (Lopressor*) 50 Mg Tab, 50 MG PO BID, #60 TAB 01/29/19 Aspirin Ec (Aspir 81) 81 Mg Tablet.dr, 81 MG PO DAILY, #30 TAB 01/29/19 Amlodipine Besylate* (Amlodipine Besylate*) 2.5 Mg Tablet, 2.5 MG PO DAILY, #30 TAB 01/29/19 Discontinued Reported Medications Cholecalciferol* (Vitamin D3*) 1,000 Unit Tablet, 5000 UNIT PO at bedtime, TAB 01/29/19 Potassium Chloride* (Potassium Chloride*) 20 Meq/15 Ml Liquid, 20 MEQ PO DAILY, ML 01/29/19 Atorvastatin* (Atorvastatin*) 40 Mg Tablet, 10 MG PO QHS, #30 TAB 01/29/19 Magnesium Oxide* (Magnesium Oxide*) 400 Mg Tablet, 250 MG PO BID, TAB 01/29/19 Citalopram Hydrobromide* (Citalopram Hydrobromide*) 40 Mg Tablet, 20 MG PO DAILY 01/31/13 Amlodipine Besylate (AMLODIPINE BESYLATE) 1 Gm Powder, 5 MG MC every other day 01/31/13 Furosemide* (Furosemide*) 20 Mg Tablet, 20 MG PO DAILY 01/31/13 Hydrocodone Bit-Acetaminophen (Hydrocodone Bit-Acetaminophen) 1 Each Tablet, 1 EACH PO QID 01/31/13 Nadolol (Nadolol) 40 Mg Tablet, 40 MG PO DAILY 01/31/13 Estradiol (Estradiol) 100 Gm Powder, 0.5 MG PO DAILY 01/31/13 Omeprazole* (Omeprazole*) 40 Mg Capsule.dr, 40 MG PO 01/31/13 Discontinued Scripts Hydrocodone/Acetaminophen ([place] 5-325 Tablet) 1 Each Tablet, 1 TAB PO TID PRN for PAIN, #6 TAB Prov:SONY CANNON MD 01/28/19 Ibuprofen* (Motrin*) 600 Mg Tab, 600 MG PO Q8 PRN for PAIN AND/OR INFLAMMATION, #30 TAB Prov:SONY CANNON MD 01/28/19 Ondansetron Hcl* (Zofran*) 4 Mg Tablet, 4 MG PO Q8H PRN for NAUSEA AND/OR VOMITING, #30 TAB Prov:SONY CANNON MD 01/28/19 Current Medications Amlodipine Besylate (Norvasc) 2.5 mg DAILY PO Last administered on 02/02/19 10:27; Admin Dose 2.5 MG; Start 02/02/19 at 09:00 Aspirin (Halfprin) 81 mg DAILY PO Last administered on 02/02/19 09:25; Admin Dose 81 MG; Start 02/02/19 at 09:00 Atorvastatin Calcium (Lipitor) 10 mg QHS PO Last administered on 02/01/19 21:56; Admin Dose 10 MG; Start 02/01/19 at 21:00 Cholecalciferol (Vitamin D) 5,000 unit DAILY PO Last administered on 02/02/19 09:24; Admin Dose 5,000 UNIT; Start 02/02/19 at 09:00 Diazepam (Valium) 10 mg Q6 PRN PO ANXIETY; Start 02/01/19 at 11:00 Docusate Sodium (Colace) 100 mg BID PO Last administered on 02/02/19 09:25; Admin Dose 100 MG; Start 02/01/19 at 21:00 Metoprolol Tartrate (Lopressor) 50 mg BID PO Last administered on 02/02/19 09:24; Admin Dose 50 MG; Start 02/01/19 at 21:00 Ropinirole HCl (Requip) 1 mg BID PO Last administered on 02/02/19 09:24; Admin Dose 1 MG; Start 02/01/19 at 21:00 Zolpidem Tartrate (Ambien) 5 mg HS PO Last administered on 02/01/19 21:56; Admin Dose 5 MG; Start 02/01/19 at 21:00 Folic Acid (Folic Acid) 0.8 mg DAILY PO ; Start 02/02/19 at 09:00 Multivitamins Therapeutic (Theragran) 1 tab DAILY PO Last administered on 02/02/19 09:24; Admin Dose 1 TAB; Start 02/02/19 at 09:00 Acetaminophen/ Hydrocodone Bitart ([place] ()) 1 tab Q6H PRN PO PAIN LEVEL 4-6 Last administered on 02/02/19at 06:36; Admin Dose 1 TAB; Start 02/01/19 at 13:00 Latanoprost (Xalatan) 1 drop QHS BOTH EYES Last administered on 02/01/19at 23:10; Admin Dose 1 DROP; Start 02/01/19 at 21:00 Morphine Sulfate (morphine) 2 mg Q6H PRN IV SEVERE PAIN LEVEL 7-10 Last administered on 02/02/19at 09:21; Admin Dose 2 MG; Start 02/01/19 at 13:00 Ondansetron HCl (Zofran Inj) 4 mg Q6H PRN IV NAUSEA AND/OR VOMITING; Start 02/02/19 at 11:00 Meds reviewed: Yes Allergies Coded Allergies: shellfish derived (Verified Allergy, Severe, swelling, 02/01/19) Shrimp shrimp (Verified Allergy, Severe, facial swelling, 02/01/19) white head shrimp Penicillins (Verified Allergy, Unknown, 02/01/19) iodine (Verified Allergy, Unknown, 02/01/19) Allergies Reviewed: Yes Labs/Studies Labs Reviewed: Reviewed by anesthesiologist Result Diagram: 02/02/19 0438 02/02/19 0438 Laboratory Tests 02/02/19 04:38 test: N/A Studies: ECG Pre-procedure Exam Last vitals Vital Signs Date Temp Pulse Resp B/P (MAP) Pulse Ox O2 O2 Flow FiO2 Time Delivery Rate 02/02/19 97.8 71 16 130/75 99 Room Air 13:12 (93) Airway: Adequate mouth opening, Adequate thyromental dist Mallampati: Mallampati II Teeth: Normal Lung: Normal Heart: Normal ASA Physical Status ASA physical status: 3 Emergency: None Planned Anesthetic General/MAC: Mask, MAC Pre-operative Attestations Prior to commencing anesthesia and surgery, the patient was re-evaluated, there was verification of: *The patient's identity *The results of appropriate recent lab work and preoperative vital signs *The above evaluation not changing prior to induction *Anesthetic plan, risk benefits, alternative and complications discussed with patient/family; questions answered; patient/family understands, accepts and wishes to proceed. KHURRAM SWANSON Feb 02, 2019 13:45
[2019-02-02] MEDS ORDERED: MAGNESIUM CITRATE 300 ML BTL PO ONE (16:30)
--- NOTE | 2019-02-02 17:08 | PREAC ---
Date/Time of Note Date/Time of Note DATE: 02/02/19 TIME: 17:07 Anesthesia Eval and Record Evaluation Time Pre-Procedure Interview DATE: 02/02/19 TIME: 17:07 Age 68 Sex female NPO: 8 hrs Preoperative diagnosis abdominal pain Planned procedure colonoscopy Past Medical History Past Medical History: Includes Cardio: HTN, Dyslipidemia, Other (AVR, MVR) Surgery & Anesthesia Issues No known issue Meds Anticoagulation: No Beta Twila within 24 hr: No Reason Beta Twila not given: Pt. not on B-Twila Reported Medications Lidocaine (Lidoderm) 1 Each Adh..patch, 1 EACH TP DAILY for leg pain 12 hrs on, 12 hrs off 02/01/19 Travoprost* (Travatan*) 0.004%-2.5 Ml Opht, 1 DROP BOTH EYES QHS, #1 BOTTLE 02/01/19 Potassium Chloride* (Potassium Chloride*) 20 Meq Tablet.er, 20 MEQ PO DAILY, TAB.SA 02/01/19 Magnesium Oxide (Magnesium) 500 Mg Capsule, 250 MG PO BID, CAP 02/01/19 Cholecalciferol (Vitamin D3) 5,000 Unit Tablet, 5000 UNIT PO DAILY, TAB 02/01/19 Atorvastatin Calcium (Atorvastatin Calcium) 10 Mg Tablet, 10 MG PO QHS, #30 TAB 02/01/19 Ropinirole Hcl* (Ropinirole Hcl*) 1 Mg Tablet, 1 MG PO BID, TAB TAKE 1 TAB- 1PM AND 2TAB-QHS 02/01/19 Furosemide* (Furosemide*) 20 Mg Tablet, 20 MG PO DAILY, #60 TAB 02/01/19 Zolpidem Tartrate* (Ambien*) 5 Mg Tablet, 5 MG PO NEEDED for INSOMNIA, #30 TAB 01/29/19 Docusate Sodium* (Colace*) 100 Mg Capsule, 100 MG PO BID, #60 CAP 01/29/19 Hydrocodone/Acetaminophen ([place] 10-325 Tablet) 1 Each Tablet, 1 EACH PO PRN for PAIN, TAB 01/29/19 Diclofenac Sodium* (Voltaren* Gel) 1% -100 Gm Gel, 2 GM TOP BID PRN for PAIN, #1 TUB 01/29/19 Diazepam* (Diazepam*) 10 Mg Tablet, 10 MG PO NEEDED, TAB 01/29/19 Clopidogrel Bisulfate (Clopidogrel) 75 Mg Tablet, 75 MG PO at night, #30 TAB 01/29/19 Lactobacillus Combo No.11 (Probiotic) 1 Each Cap.sprink, 1 CAP PO at night, CAP 01/29/19 Folic Acid (Folic Acid) 0.8 Mg Capsule, 0.8 MG PO DAILY, CAP 01/29/19 Multivitamin/Iron/Folic Acid (MULTI-DAY PLUS IRON TABLET) 1 Each Tablet, 1 EACH PO DAILY, TAB 01/29/19 Metoprolol Tartrate* (Lopressor*) 50 Mg Tab, 50 MG PO BID, #60 TAB 01/29/19 Aspirin Ec (Aspir 81) 81 Mg Tablet.dr, 81 MG PO DAILY, #30 TAB 01/29/19 Amlodipine Besylate* (Amlodipine Besylate*) 2.5 Mg Tablet, 2.5 MG PO DAILY, #30 TAB 01/29/19 Discontinued Reported Medications Cholecalciferol* (Vitamin D3*) 1,000 Unit Tablet, 5000 UNIT PO at bedtime, TAB 01/29/19 Potassium Chloride* (Potassium Chloride*) 20 Meq/15 Ml Liquid, 20 MEQ PO DAILY, ML 01/29/19 Atorvastatin* (Atorvastatin*) 40 Mg Tablet, 10 MG PO QHS, #30 TAB 01/29/19 Magnesium Oxide* (Magnesium Oxide*) 400 Mg Tablet, 250 MG PO BID, TAB 01/29/19 Citalopram Hydrobromide* (Citalopram Hydrobromide*) 40 Mg Tablet, 20 MG PO DAILY 01/31/13 Amlodipine Besylate (AMLODIPINE BESYLATE) 1 Gm Powder, 5 MG MC every other day 01/31/13 Furosemide* (Furosemide*) 20 Mg Tablet, 20 MG PO DAILY 01/31/13 Hydrocodone Bit-Acetaminophen (Hydrocodone Bit-Acetaminophen) 1 Each Tablet, 1 EACH PO QID 01/31/13 Nadolol (Nadolol) 40 Mg Tablet, 40 MG PO DAILY 01/31/13 Estradiol (Estradiol) 100 Gm Powder, 0.5 MG PO DAILY 01/31/13 Omeprazole* (Omeprazole*) 40 Mg Capsule.dr, 40 MG PO 01/31/13 Discontinued Scripts Hydrocodone/Acetaminophen ([place] 5-325 Tablet) 1 Each Tablet, 1 TAB PO TID PRN for PAIN, #6 TAB Prov:SONY CANNON MD 01/28/19 Ibuprofen* (Motrin*) 600 Mg Tab, 600 MG PO Q8 PRN for PAIN AND/OR INFLAMMATION, #30 TAB Prov:SONY CANNON MD 01/28/19 Ondansetron Hcl* (Zofran*) 4 Mg Tablet, 4 MG PO Q8H PRN for NAUSEA AND/OR V OMITING, #30 TAB Prov:SONY CNANON MD 01/28/19 Current Medications Amlodipine Besylate (Norvasc) 2.5 mg DAILY PO Last administered on 02/02/19 10:27; Admin Dose 2.5 MG; Start 02/02/19 at 09:00 Aspirin (Halfprin) 81 mg DAILY PO Last administered on 02/02/19 09:25; Admin Dose 81 MG; Start 02/02/19 at 09:00 Atorvastatin Calcium (Lipitor) 10 mg QHS PO Last administered on 02/01/19 21:56; Admin Dose 10 MG; Start 02/01/19 at 21:00 Cholecalciferol (Vitamin D) 5,000 unit DAILY PO Last administered on 02/02/19 09:24; Admin Dose 5,000 UNIT; Start 02/02/19 at 09:00 Diazepam (Valium) 10 mg Q6 PRN PO ANXIETY; Start 02/01/19 at 11:00 Docusate Sodium (Colace) 100 mg BID PO Last administered on 02/02/19 09:25; Admin Dose 100 MG; Start 02/01/19 at 21:00 Metoprolol Tartrate (Lopressor) 50 mg BID PO Last administered on 02/02/19 09:24; Admin Dose 50 MG; Start 02/01/19 at 21:00 Ropinirole HCl (Requip) 1 mg BID PO Last administered on 02/02/19 09:24; Admin Dose 1 MG; Start 02/01/19 at 21:00 Zolpidem Tartrate (Ambien) 5 mg HS PO Last administered on 02/01/19 21:56; Admi n Dose 5 MG; Start 02/01/19 at 21:00 Folic Acid (Folic Acid) 0.8 mg DAILY PO ; Start 02/02/19 at 09:00 Multivitamins Therapeutic (Theragran) 1 tab DAILY PO Last administered on 02/02/19 09:24; Admin Dose 1 TAB; Start 02/02/19 at 09:00 Acetaminophen/ Hydrocodone Bitart ([place] (10/325)) 1 tab Q6H PRN PO PAIN LEVEL 4-6 Last administered on 02/02/19at 06:36; Admin Dose 1 TAB; Start 02/01/19 at 13:00 Latanoprost (Xalatan) 1 drop QHS BOTH EYES Last administered on 02/01/19at 23:10; Admin Dose 1 DROP; Start 02/01/19 at 21:00 Morphine Sulfate (morphine) 2 mg Q6H PRN IV SEVERE PAIN LEVEL 7-10 Last admin istered on 02/02/19at 09:21; Admin Dose 2 MG; Start 02/01/19 at 13:00 Ondansetron HCl (Zofran Inj) 4 mg Q6H PRN IV NAUSEA AND/OR VOMITING; Start 02/02/19 at 11:00 Lactulose (Enulose) 20 gm Q2 PO ; Start 02/02/19 at 17:00; Stop 02/02/19 at 23:01 Meds reviewed: Yes Allergies Coded Allergies: shellfish derived (Verified Allergy, Severe, swelling, 02/01/19) Shrimp shrimp (Verified Allergy, Severe, facial swelling, 02/01/19) white head shrimp Penicillins (Verified Allergy, Unknown, 02/01/19) iodine (Verified Allergy, Unknown, 02/01/19) Allergies Reviewed: Yes Labs/Studies Labs Reviewed: Reviewed by anesthesiologist Result Diagram: 02/02/19 0438 02/02/19 0438 Laboratory Tests 02/02/19 04:38 test: N/A Pre-procedure Exam Last vitals Vital Signs Date Temp Pulse Resp B/P (MAP) Pulse Ox O2 O2 Flow FiO2 Time Delivery Rate 02/02/19 132/76 Room Air 14:40 (94) 02/02/19 98.4 14:15 02/02/19 63 18 95 13:51 Airway: Adequate mouth opening Mallampati: Mallampati II Teeth: Normal Lung: Normal Heart: Normal ASA Physical Status ASA physical status: 2 Emergency: None Planned Anesthetic General/MAC: MAC Pre-operative Attestations Prior to commencing anesthesia and surgery, the patient was re-evaluated, there was verification of: *The patient's identity *The results of appropriate recent lab work and preoperative vital signs *The above evaluation not changing prior to induction *Anesthetic plan, risk benefits, alternative and complications discussed with patient/family; questions answered; patient/family understands, accepts and wishes to proceed. CHIDI GARRETT Feb 02, 2019 17:08
[2019-02-02] MEDS: LACTULOSE 30ML CUP PO SCH ×4 (17:55→23:34)
[2019-02-02] MEDS: ATORVASTATIN 10 MG TAB PO SCH (21:02)
--- NOTE | 2019-02-02 22:40 | PN ---
Date/Time of Note Date/Time of Note DATE: 02/02/19 TIME: 22:29 Assessment/Plan Lines/Catheters IV Catheter Type (from Nrsg): Peripheral IV Assessment/Plan Chief Complaint/Hosp Course 1. Abdominal pain with concern for cholecystitis; DDX: Cholecystitis versus mesenteric panniculitis versus PUD versus other; hida negative -Agree with endoscopy>pending today -Pain management 2. Supportive hypertension -Medical management 3. Anxiety -Psychiatric optimization 4. Back pain status post spine surgery -Pain management -Supportive 5. umbilical hernia: -monitor Thank you. Patient seen and examined in collaboration with Dr. Alistair Angel. Subjective 24 Hr Interval Summary Feels well. Continues to have abdominal discomfort. Hide a noted. No fevers, congested cough, chest Pain, how potations, vomiting, Diarrhea, sz, rash. Exam/Review of Systems Vital Signs Vitals Vital Signs Date Temp Pulse Resp B/P (MAP) Pulse Ox O2 O2 Flow FiO2 Time Delivery Rate 02/02/19 98.4 84 16 120/79 98 20:10 (93) 02/02/19 Room Air 14:40 Intake and Output 02/01/19 02/01/19 02/02/19 1414:59 22:59 06:59 IntakeIntake Total 450 ml BalanceBalance 450 ml Exam Free Text/Dictation Constitutional: alert, oriented Psych: anxiety (Minimal) Head: normocephalic, atraumatic Eyes: nl conjunctiva, EOMI, nl lids, nl sclera ENMT: nl external ears & nose, nl lips & teeth, mucosa pink and moist Neck: supple, non-tender; No jvd Respiratory: normal air movement; No congested cough Cardiovascular: regular rate and rhythm Gastrointestinal: soft, distended (Minimal), tender (right midabdomen) other (Negative Nj's by palpation; umbilical hernia); No firm, No rebound or guarding Genitourinary - Female: nl external genitalia Musculoskeletal: nl extremities to inspection Extremities: normal pulses Neurological: nl mental status, nl speech, nl strength Skin: nl turgor; No rash or lesions Lymph: nl lymph nodes Results Result Diagram: 02/02/19 0438 02/02/19 0438 JEAN-CLAUDE BACK NP Feb 02, 2019 22:40
[2019-02-02] MEDS: ZOLPIDEM 5 MG TAB PO SCH (23:33)
[2019-02-02] MEDS: LATANOPROST 0.005% 2.5 ML OPH BOTH EYES SCH (23:35)
[2019-02-03] VITALS (13 sets, daily range): BP systolic 104–136; BP diastolic 64–78; PULSE 73–95; RESP 15–21
--- NOTE | 2019-02-03 08:03 | PAC ---
Date/Time of Note Date/Time of Note DATE: 02/03/19 TIME: 08:02 Post-Anesthesia Notes Post-Anesthesia Note Last documented vital signs Vital Signs Date Temp Pulse Resp B/P (MAP) Pulse Ox O2 O2 Flow FiO2 Time Delivery Rate 02/03/19 97.6 80 16 134/76 99 Room Air 07:51 (95) Activity: WNL Respiratory function: WNL Cardiovascular function: WNL Mental status: Baseline Pain reasonably controlled: Yes Hydration appropriate: Yes Nausea/Vomiting absent: Yes KHURRAM SWANSON Feb 03, 2019 08:02
[2019-02-03] MEDS: MULTIVITAMINS THERAPEUTIC TAB PO SCH (09:00)
[2019-02-03] MEDS: ASPIRIN (EC) 81 MG TAB PO SCH (09:00)
[2019-02-03] MEDS: morphine 2 MG INJ IV PRN ×3 (09:00→20:02)
[2019-02-03] MEDS: CHOLECALCIFEROL 1,000 UNIT TAB PO SCH (09:00)
[2019-02-03] MEDS: FOLIC ACID 0.4 MG TAB PO SCH (09:00)
[2019-02-03] MEDS: DOCUSATE SODIUM 100 MG CAP PO SCH ×2 (09:00→21:27)
[2019-02-03] MEDS: AMLODIPINE 2.5 MG TAB PO SCH (09:01)
[2019-02-03] MEDS: ROPINIROLE 1 MG TAB PO SCH ×2 (09:01→21:27)
[2019-02-03] MEDS: METOPROLOL 50 MG TAB PO SCH ×2 (09:01→21:29)
--- NOTE | 2019-02-03 09:14 | CONS ---
Assessment/Plan Assessment/Plan Problems: (1) HTN (hypertension) Comment: well controlled currently (2) Valvular heart disease Comment: s/p MVR/AVR, bioprosthetic.. on ASA/Plavix (3) Abdominal pain Status: Acute Comment: unclear etiology... no T.. nl WBC... nl LFTs... nl amylase/lipase... Hct stable... nl HIDA... ?gi thoughts?.. for colonoscopy today Qualifiers: Abdominal location: generalized Qualified Codes: R10.84 - Generalized abdominal pain Consultation Date/Type/Reason Admit Date/Time Type of Consult Nephrology Date/Time of Note DATE: 02/03/19 TIME: 09:10 Hx of Present Illness Continues to have abd pain, req prn MS.. Had EGD yesterday...? results?.. for colonoscopy later today Exam/Review of Systems Vital Signs Vitals Vital Signs Date Temp Pulse Resp B/P (MAP) Pulse Ox O2 O2 Flow FiO2 Time Delivery Rate 02/03/19 97.6 80 16 134/76 99 Room Air 07:51 (95) Intake and Output 02/02/19 02/02/19 02/03/19 1515:00 23:00 07:00 IntakeIntake Total 1440 ml OutputOutput Total 6 ml 6 ml BalanceBalance 1434 ml -6 ml Exam Constitutional: alert, oriented Head: normocephalic, atraumatic Eyes: nl conjunctiva ENMT: nl external ears & nose Neck: supple, non-tender Respiratory: clear to auscultation Cardiovascular: regular rate and rhythm Gastrointestinal: soft, nl liver, spleen, tender (midepig and RLQ) Musculoskeletal: nl extremities to inspection Extremities: normal pulses Labs Result Diagram: 02/03/19 0456 02/03/19 0456 Results 24hrs Laboratory Tests Test 02/03/19 04:56 White Blood Count 6.5 Red Blood Count 4.45 Hemoglobin 12.6 Hematocrit 37.7 Mean Corpuscular Volume 84.7 Mean Corpuscular Hemoglobin 28.3 L Mean Corpuscular Hemoglobin Concent 33.4 Red Cell Distribution Width 14.5 Platelet Count 245 Mean Platelet Volume 9.3 Immature Granulocytes % 0.300 Neutrophils % 52.0 Lymphocytes % 33.2 Monocytes % 11.7 H Eosinophils % 2.3 Basophils % 0.5 Nucleated Red Blood Cells % 0.0 Immature Granulocytes # 0.020 Neutrophils # 3.4 Lymphocytes # 2.2 Monocytes # 0.8 Eosinophils # 0.2 Basophils # 0.0 Nucleated Red Blood Cells # 0.0 Sodium Level 139 Potassium Level 3.9 Chloride Level 108 Carbon Dioxide Level 21 Anion Gap 10 Blood Urea Nitrogen 11 Creatinine 0.88 Est Glomerular Filtrat Rate mL/min > 60 Glucose Level 82 Calcium Level 9.5 Phosphorus Level 4.0 Magnesium Level 2.4 Medications Medications Current Medications Amlodipine Besylate (Norvasc) 2.5 mg DAILY PO Last administered on 02/03/19 09:01; Admin Dose 2.5 MG; Start 02/02/19 at 09:00 Aspirin (Halfprin) 81 mg DAILY PO Last administered on 02/02/19 09:25; Admin Dose 81 MG; Start 02/02/19 at 09:00 Atorvastatin Calcium (Lipitor) 10 mg QHS PO Last administered on 02/02/19 21:02; Admin Dose 10 MG; Start 02/01/19 at 21:00 Cholecalciferol (Vitamin D) 5,000 unit DAILY PO Last administered on 02/02/19 09:24; Admin Dose 5,000 UNIT; Start 02/02/19 at 09:00 Diazepam (Valium) 10 mg Q6 PRN PO ANXIETY; Start 02/01/19 at 11:00 Docusate Sodium (Colace) 100 mg BID PO Last administered on 02/02/19 21:02; Admin Dose 100 MG; Start 02/01/19 at 21:00 Metoprolol Tartrate (Lopressor) 50 mg BID PO Last administered on 02/03/19 09:01; Admin Dose 50 MG; Start 02/01/19 at 21:00 Ropinirole HCl (Requip) 1 mg BID PO Last administered on 02/03/19 09:01; Admin Dose 1 MG; Start 02/01/19 at 21:00 Zolpidem Tartrate (Ambien) 5 mg HS PO Last administered on 02/02/19 23:33; Admin Dose 5 MG; Start 02/01/19 at 21:00 Folic Acid (Folic Acid) 0.8 mg DAILY PO ; Start 02/02/19 at 09:00 Multivitamins Therapeutic (Theragran) 1 tab DAILY PO Last administered on 02/02/19 09:24; Admin Dose 1 TAB; Start 02/02/19 at 09:00 Acetaminophen/ Hydrocodone Bitart ([place] (10/)) 1 tab Q6H PRN PO PAIN LEVEL 4-6 Last administered on 02/02/19 23:33; Admin Dose 1 TAB; Start 02/01/19 at 13:00 Latanoprost (Xalatan) 1 drop QHS BOTH EYES Last administered on 02/02/19at 23:35; Admin Dose 1 DROP; Start 02/01/19 at 21:00 Ondansetron HCl (Zofran Inj) 4 mg Q6H PRN IV NAUSEA AND/OR VOMITING; Start 02/02/19 at 11:00 Morphine Sulfate (morphine) 4 mg Q6H PRN IV SEVERE PAIN LEVEL 7-10 Last administered on 02/03/19 09:00; Admin Dose 4 MG; Start 02/02/19 at 20:30 HOWARD DUNCAN MD Feb 03, 2019 09:14
--- NOTE | 2019-02-03 14:11 | PN ---
Date/Time of Note Date/Time of Note DATE: 02/03/19 TIME: 14:04 Assessment/Plan Lines/Catheters IV Catheter Type (from Nrs): Saline Lock Assessment/Plan Chief Complaint/Hosp Course 1. Abdominal pain with concern for cholecystitis; DDX: mesenteric panniculitis versus gastritis versus referred pain from spine versus hernia other; hida negative -Pending colonoscopy -Pain management 2. Supportive hypertension -Medical management 3. Anxiety -Psychiatric optimization 4. Back pain status post spine surgery -Pain management -Supportive 5. umbilical hernia: -monitor 6. Chronic gastritis -PPI Thank you. Patient seen and examined in collaboration with Dr. Alistair Angel. Subjective 24 Hr Interval Summary Continues to have abdominal pain. Status post EGD. Pending colonoscopy today. No fevers, chills, sob, congested cough, cp, palpitations, connor, dizziness, nausea, vomiting, diarrhea, dysuria. Exam/Review of Systems Vital Signs Vitals Vital Signs Date Temp Pulse Resp B/P (MAP) Pulse Ox O2 O2 Flow FiO2 Time Delivery Rate 02/03/19 97.6 80 16 134/76 99 Room Air 07:51 (95) Intake and Output 02/02/19 02/02/19 02/03/19 1515:00 23:00 07:00 IntakeIntake Total 1440 ml OutputOutput Total 6 ml 6 ml BalanceBalance 1434 ml -6 ml Exam Free Text/Dictation Constitutional: alert, oriented Psych: anxiety (Minimal) Head: normocephalic, atraumatic Eyes: nl conjunctiva, EOMI, nl lids, nl sclera ENMT: nl external ears & nose, nl lips & teeth, mucosa pink and moist Neck: supple, non-tender; No jvd Respiratory: normal air movement; No congested cough Cardiovascular: regular rate and rhythm Gastrointestinal: soft, distended (Minimal), tender (right midabdomen) other (Negative Nj's by palpation; umbilical hernia); No firm, No rebound or guarding Genitourinary - Female: nl external genitalia Musculoskeletal: nl extremities to inspection Extremities: normal pulses Neurological: nl mental status, nl speech, nl strength Skin: nl turgor; No rash or lesions Lymph: nl lymph nodes Results Result Diagram: 02/03/19 0456 02/03/19 0456 JEAN-CLAUDE BACK NP Feb 03, 2019 14:11
[2019-02-03] MEDS ORDERED: PROPOFOL 40 ML ONE (16:47)
[2019-02-03] MEDS ORDERED: PROPOFOL 200 MG INJ ONE (16:47)
[2019-02-03] MEDS ORDERED: LIDOCAINE 100 MG SYRINGE ONE (16:47)
--- NOTE | 2019-02-03 17:21 | PAC ---
Date/Time of Note Date/Time of Note DATE: 02/03/19 TIME: 17:21 Post-Anesthesia Notes Post-Anesthesia Note Last documented vital signs Vital Signs Date Temp Pulse Resp B/P (MAP) Pulse Ox O2 O2 Flow FiO2 Time Delivery Rate 02/03/19 98.3 75 17 109/66 99 Room Air 15:03 (80) Activity: WNL Respiratory function: WNL Cardiovascular function: WNL Mental status: Baseline Pain reasonably controlled: Yes Hydration appropriate: Yes Nausea/Vomiting absent: Yes Kiran Bolaños M.D. Feb 03, 2019 17:21
--- NOTE | 2019-02-03 19:16 | RADRPT ---
Vent Rate: 75 bpm RR Interval: 800 msec VA Interval: 116 msec QRS Duration: 91 msec QT Interval: 412 msec QTC Interval: 461 msec P-R-T [place]: -84 - 74 - 62 degrees Sinus or ectopic atrial rhythm...P axis (-45,135) Electronically Signed By: Vazquez Baker
[2019-02-03] MEDS: ATORVASTATIN 10 MG TAB PO SCH (21:27)
[2019-02-03] MEDS: HYDROCODONE/APAP (10/325) TAB PO PRN (21:59)
[2019-02-03] MEDS: ZOLPIDEM 5 MG TAB PO SCH (23:19)
[2019-02-03] MEDS: LATANOPROST 0.005% 2.5 ML OPH BOTH EYES SCH (23:20)
[2019-02-04 01:23] VITALS: BP 109/71; PULSE 75; RESP 16
[2019-02-04] MEDS: morphine 2 MG INJ IV PRN ×4 (03:52→23:42)
[2019-02-04 07:47] VITALS: BP 127/76; PULSE 71; RESP 16
[2019-02-04] MEDS: METOPROLOL 50 MG TAB PO SCH ×2 (08:28→21:00)
[2019-02-04] MEDS: ROPINIROLE 1 MG TAB PO SCH ×2 (08:28→21:34)
[2019-02-04] MEDS: AMLODIPINE 2.5 MG TAB PO SCH (08:28)
[2019-02-04] MEDS: ASPIRIN (EC) 81 MG TAB PO SCH (08:28)
[2019-02-04] MEDS: MULTIVITAMINS THERAPEUTIC TAB PO SCH (08:28)
[2019-02-04] MEDS: DOCUSATE SODIUM 100 MG CAP PO SCH ×2 (08:28→21:34)
[2019-02-04] MEDS: FOLIC ACID 0.4 MG TAB PO SCH (08:29)
[2019-02-04] MEDS: CHOLECALCIFEROL 1,000 UNIT TAB PO SCH (08:29)
--- NOTE | 2019-02-04 08:37 | PN ---
Date/Time of Note Date/Time of Note DATE: 02/04/19 TIME: 08:34 Assessment/Plan VTE Prophylaxis Risk score (from Ns)>0 risk: 4 SCD applied (from Ns): Yes Pharmacological prophylaxis: NA/contraindicated (gi procedure to be performed) Pharm contraindication: other (gi procedure may be planned) Lines/Catheters IV C[facility]ter Type (from [facility]): Saline Lock Assessment/Plan Assessment/Plan 1-Abd pain persists, cause unclear, await gi and surgery follow up. Clinically GB dz seems like the culprit, hida and us are negative, ?? MRCP needed. Nl liver tests x several makes this unlikely. 2. Valvular heart dz, stable Result Diagram: 02/04/1915 02/04/1915 Results 24hrs Laboratory Tests Test 02/04/19 05:15 White Blood Count 6.2 Red Blood Count 4.47 Hemoglobin 12.4 Hematocrit 37.9 Mean Corpuscular Volume 84.8 Mean Corpuscular Hemoglobin 27.7 L Mean Corpuscular Hemoglobin Concent 32.7 Red Cell Distribution Width 14.6 H Platelet Count 228 Mean Platelet Volume 9.6 Immature Granulocytes % 0.300 Neutrophils % 55.9 Lymphocytes % 29.4 Monocytes % 11.2 H Eosinophils % 2.9 Basophils % 0.3 Nucleated Red Blood Cells % 0.0 Immature Granulocytes # 0.020 Neutrophils # 3.4 Lymphocytes # 1.8 Monocytes # 0.7 Eosinophils # 0.2 Basophils # 0.0 Nucleated Red Blood Cells # 0.0 Erythrocyte Sedimentation Rate 40.0 H Sodium Level 139 Potassium Level 4.1 Chloride Level 107 Carbon Dioxide Level 23 Anion Gap 9 Blood Urea Nitrogen 10 Creatinine 0.77 Est Glomerular Filtrat Rate mL/min > 60 Glucose Level 97 Calcium Level 9.0 Total Bilirubin 0.3 Direct Bilirubin 0.00 Indirect Bilirubin 0.3 Aspartate Amino Transf (AST/SGOT) 45 Alanine Aminotransferase (ALT/SGPT) 28 Alkaline Phosphatase 100 Total Protein 7.3 Albumin 3.6 Globulin 3.70 H Albumin/Globulin Ratio 0.97 Subjective 24 Hr Interval Summary Cardiovascular: No chest pain, No lightheadedness Gastrointestinal: other (continued right upper quad discomfort which is at times circumferential (radiating to back) which seems to inc pc) Genitourinary: no complaints Musculoskeletal: back pain (mild mid line) Exam/Review of Systems Exam Vitals Vital Signs Date Temp Pulse Resp B/P (MAP) Pulse Ox O2 O2 Flow FiO2 Time Delivery Rate 02/04/19 97.8 71 16 127/76 98 07:47 (93) 02/03/19 Room Air 17:58 Intake and Output 02/03/19 02/03/19 02/04/19 1515:00 23:00 07:00 IntakeIntake Total 360 ml 240 ml BalanceBalance 360 ml 240 ml Neck: No jvd Respiratory: clear to auscultation Cardiovascular: regular rate and rhythm Gastrointestinal: soft, tender (1-2 right upper quad) Extremities: No edema Results Results 24hrs Laboratory Tests Test 02/04/19 05:15 White Blood Count 6.2 Red Blood Count 4.47 Hemoglobin 12.4 Hematocrit 37.9 Mean Corpuscular Volume 84.8 Mean Corpuscular Hemoglobin 27.7 L Mean Corpuscular Hemoglobin Concent 32.7 Red Cell Distribution Width 14.6 H Platelet Count 228 Mean Platelet Volume 9.6 Immature Granulocytes % 0.300 Neutrophils % 55.9 Lymphocytes % 29.4 Monocytes % 11.2 H Eosinophils % 2.9 Basophils % 0.3 Nucleated Red Blood Cells % 0.0 Immature Granulocytes # 0.020 Neutrophils # 3.4 Lymphocytes # 1.8 Monocytes # 0.7 Eosinophils # 0.2 Basophils # 0.0 Nucleated Red Blood Cells # 0.0 Erythrocyte Sedimentation Rate 40.0 H Sodium Level 139 Potassium Level 4.1 Chloride Level 107 Carbon Dioxide Level 23 Anion Gap 9 Blood Urea Nitrogen 10 Creatinine 0.77 Est Glomerular Filtrat Rate mL/min > 60 Glucose Level 97 Calcium Level 9.0 Total Bilirubin 0.3 Direct Bilirubin 0.00 Indirect Bilirubin 0.3 Aspartate Amino Transf (AST/SGOT) 45 Alanine Aminotransferase (ALT/SGPT) 28 Alkaline Phosphatase 100 Total Protein 7.3 Albumin 3.6 Globulin 3.70 H Albumin/Globulin Ratio 0.97 Medications Medication Current Medications Amlodipine Besylate (Norvasc) 2.5 mg DAILY PO Last administered on 02/04/19at 08:28; Admin Dose 2.5 MG; Start 02/02/19 at 09:00 Aspirin (Halfprin) 81 mg DAILY PO Last administered on 02/04/19at 08:28; Admin Dose 81 MG; Start 02/02/19 at 09:00 Atorvastatin Calcium (Lipitor) 10 mg QHS PO Last administered on 02/03/19 21:27; Admin Dose 10 MG; Start 02/01/19 at 21:00 Cholecalciferol (Vitamin D) 5,000 unit DAILY PO Last administered on 02/04/19 08:29; Admin Dose 5,000 UNIT; Start 02/02/19 at 09:00 Diazepam (Valium) 10 mg Q6 PRN PO ANXIETY; Start 02/01/19 at 11:00 Docusate Sodium (Colace) 100 mg BID PO Last administered on 02/04/19 08:28; Admin Dose 100 MG; Start 02/01/19 at 21:00 Metoprolol Tartrate (Lopressor) 50 mg BID PO Last administered on 02/04/19 08:28; Admin Dose 50 MG; Start 02/01/19 at 21:00 Ropinirole HCl (Requip) 1 mg BID PO Last administered on 02/04/19 08:28; Admin Dose 1 MG; Start 02/01/19 at 21:00 Zolpidem Tartrate (Ambien) 5 mg HS PO Last administered on 02/03/19 23:19; Admin Dose 5 MG; Start 02/01/19 at 21:00 Folic Acid (Folic Acid) 0.8 mg DAILY PO Last administered on 02/04/19 08:29; Admin Dose 0.8 MG; Start 02/02/19 at 09:00 Multivitamins Therapeutic (Theragran) 1 tab DAILY PO Last administered on 02/04/19 08:28; Admin Dose 1 TAB; Start 02/02/19 at 09:00 Acetaminophen/ Hydrocodone Bitart ([place] (10/325)) 1 tab Q6H PRN PO PAIN LEVEL 4-6 Last administered on 02/03/19 21:59; Admin Dose 1 TAB; Start 02/01/19 at 13 :00 Latanoprost (Xalatan) 1 drop QHS BOTH EYES Last administered on 02/03/19 23:20; Admin Dose 1 DROP; Start 02/01/19 at 21:00 Ondansetron HCl (Zofran Inj) 4 mg Q6H PRN IV NAUSEA AND/OR VOMITING; Start 02/02/19 at 11:00 Morphine Sulfate (morphine) 4 mg Q6H PRN IV SEVERE PAIN LEVEL 7-10 Last admin istered on 7/12/19at 03:52; Admin Dose 4 MG; Start 02/02/19 at 20:30 HUMA CASTELLANO MD Feb 04, 2019 08:37
[2019-02-04 14:43] VITALS: BP 125/72; PULSE 78; RESP 16
[2019-02-04] MEDS: HYDROCODONE/APAP (10/325) TAB PO PRN (14:48)
--- NOTE | 2019-02-04 17:45 | PN ---
Date/Time of Note Date/Time of Note DATE: 02/04/19 TIME: 17:45 Assessment/Plan Lines/Catheters IV Catheter Type (from Nrsg): Saline Lock Assessment/Plan Chief Complaint/Hosp Course 1. Abdominal pain of unknown etiology. DDx: referred spinal pain vs musculoskeletal vs umbilical hernia vs. ? spigelian hernias (on CT there maybe defect at those sites per Dr. Angel's read) vs. mesenteric panniculitis +/- gastritis (pain improved with milk consumption). Discussed with her hernia re pair as possible solution (she is tender at umbilical hernia). She has agreed to ventral hernia repair. -Ventral hernia repair. Will need to discuss with GI if he believes the GB is the source of the abdominal pain (however HIDA is negative, LFTs nl, no GB wall thickening). If so, can also consider cholecystectomy concurrent with ventral hernia repair. -will need cardiology clearance -Pain management 2. hypertension -Medical management 3. Anxiety -Psychiatric optimization 4. Back pain status post spine surgery -Pain management -Supportive 5. umbilical hernia: -as above 6. Chronic gastritis -PPI Thank you. Patient seen and examined in collaboration with Dr. Alistair Angel. Subjective 24 Hr Interval Summary Intermittent abdominal pain, improved with milk and pain medicine. No fevers, chills, sob, congested cough, cp, palpitations, connor, dizziness, n/v/d/dysuria. Exam/Review of Systems Vital Signs Vitals Vital Signs Date Temp Pulse Resp B/P (MAP) Pulse Ox O2 O2 Flow FiO2 Time Delivery Rate 02/04/19 98.8 80 17 109/61 97 Room Air 19:50 (77) Intake and Output 02/03/19 02/03/19 02/04/19 1515:00 23:00 07:00 IntakeIntake Total 360 ml 240 ml BalanceBalance 360 ml 240 ml Exam Free Text/Dictation Constitutional: alert, oriented Psych: nl mood Head: normocephalic, atraumatic Eyes: nl conjunctiva, EOMI, nl lids, nl sclera ENMT: nl external ears & nose, nl lips & teeth, mucosa pink and moist Neck: supple, non-tender; No jvd Respiratory: normal air movement; No congested cough Cardiovascular: regular rate and rhythm Gastrointestinal: soft, distended (Minimal), tender (right midabdomen) other (Negative Nj's by palpation; umbilical hernia-tender to palpation); No firm, No rebound or guarding Genitourinary - Female: nl external genitalia Musculoskeletal: nl extremities to inspection Extremities: normal pulses Neurological: nl mental status, nl speech, nl strength Skin: nl turgor; No rash or lesions Lymph: nl lymph nodes Results Result Diagram: 02/04/19 0515 02/04/19 0515 JEAN-CLAUDE BACK NP Feb 04, 2019 17:45
[2019-02-04 19:50] VITALS: BP 109/61; PULSE 80; RESP 17
[2019-02-04] MEDS: ZOLPIDEM 5 MG TAB PO SCH (21:00)
[2019-02-04] MEDS: ATORVASTATIN 10 MG TAB PO SCH (21:34)
[2019-02-04] MEDS: LATANOPROST 0.005% 2.5 ML OPH BOTH EYES SCH (23:42)
[2019-02-05 02:22] VITALS: BP 143/75; PULSE 81; RESP 18
[2019-02-05] MEDS: HYDROCODONE/APAP (10/325) TAB PO PRN ×3 (02:28→20:13)
[2019-02-05] MEDS: morphine 2 MG INJ IV PRN ×3 (06:32→18:25)
[2019-02-05 08:14] VITALS: BP 126/73; PULSE 86; RESP 20
--- NOTE | 2019-02-05 08:25 | CONS ---
Assessment/Plan Assessment/Plan Problems: (1) HTN (hypertension) Comment: controlled (2) Abdominal pain Status: Acute Comment: ?ines..? hernia?.. still not clear, but with cont [ain, will need surgical exploration Qualifiers: Abdominal location: generalized Qualified Codes: R10.84 - Generalized abdominal pain (3) Valvular heart disease Comment: stable.. will get cards to see on Mon Consultation Date/Type/Reason Admit Date/Time Type of Consult Nephrology Date/Time of Note DATE: 02/05/19 TIME: 08:23 Hx of Present Illness Appears comfortable, but still req periodic IV MS for her pain Exam/Review of Systems Vital Signs Vitals Vital Signs Date Temp Pulse Resp B/P (MAP) Pulse Ox O2 O2 Flow FiO2 Time Delivery Rate 02/05/19 98.2 86 20 126/73 98 08:14 (90) 02/04/19 Room Air 19:50 Intake and Output 02/04/19 02/04/19 02/05/19 1515:00 23:00 07:00 IntakeIntake Total 1000 ml 400 ml BalanceBalance 1000 ml 400 ml Exam Constitutional: oriented Neck: supple Respiratory: clear to auscultation Cardiovascular: regular rate and rhythm Gastrointestinal: soft, nl liver, spleen, tender (midepig to deep palp) Extremities: normal pulses Labs Result Diagram: 02/04/1951402/04/19514 Medications Medications Current Medications Amlodipine Besylate (Norvasc) 2.5 mg DAILY PO Last administered on 02/04/19at 08:28; Admin Dose 2.5 MG; Start 02/02/19 at 09:00 Aspirin (Halfprin) 81 mg DAILY PO Last administered on 02/04/19at 08:28; Admin Dose 81 MG; Start 02/02/19 at 09:00 Atorvastatin Calcium (Lipitor) 10 mg QHS PO Last administered on 02/04/19at 21:34; Admin Dose 10 MG; Start 02/01/19 at 21:00 Cholecalciferol (Vitamin D) 5,000 unit DAILY PO Last administered on 02/04/19at 08:29; Admin Dose 5,000 UNIT; Start 02/02/19 at 09:00 Diazepam (Valium) 10 mg Q6 PRN PO ANXIETY; Start 02/01/19 at 11:00 Docusate Sodium (Colace) 100 mg BID PO Last administered on 02/04/19 21:34; Admin Dose 100 MG; Start 02/01/19 at 21:00 Metoprolol Tartrate (Lopressor) 50 mg BID PO Last administered on 02/04/19 08:28; Admin Dose 50 MG; Start 02/01/19 at 21:00 Ropinirole HCl (Requip) 1 mg BID PO Last administered on 02/04/19 21:34; Admin Dose 1 MG; Start 02/01/19 at 21:00 Zolpidem Tartrate (Ambien) 5 mg HS PO Last administered on 02/03/19 23:19; Admin Dose 5 MG; Start 02/01/19 at 21:00 Folic Acid (Folic Acid) 0.8 mg DAILY PO Last administered on 02/04/19 08:29; Admin Dose 0.8 MG; Start 02/02/19 at 09:00 Multivitamins Therapeutic (Theragran) 1 tab DAILY PO Last administered on 02/04/19 08:28; Admin Dose 1 TAB; Start 02/02/19 at 09:00 Acetaminophen/ Hydrocodone Bitart ([place] (10/325)) 1 tab Q6H PRN PO PAIN LEVEL 4-6 Last administered on 02/05/19 02:28; Admin Dose 1 TAB; Start 02/01/19 at 13:00 Latanoprost (Xalatan) 1 drop QHS BOTH EYES Last administered on 02/04/19 23:42; Admin Dose 1 DROP; Start 02/01/19 at 21:00 Ondansetron HCl (Zofran Inj) 4 mg Q6H PRN IV NAUSEA AND/OR VOMITING; Start 02/02/19 at 11:00 Morphine Sulfate (morphine) 4 mg Q6H PRN IV SEVERE PAIN LEVEL 7-10 Last administered on 02/05/19 06:32; Admin Dose 4 MG; Start 02/02/19 at 20:30 HOWARD DUNCAN MD Feb 05, 2019 08:25
[2019-02-05] MEDS: DOCUSATE SODIUM 100 MG CAP PO SCH ×2 (09:00→20:13)
[2019-02-05] MEDS: ASPIRIN (EC) 81 MG TAB PO SCH (09:01)
[2019-02-05] MEDS: FOLIC ACID 0.4 MG TAB PO SCH (09:01)
[2019-02-05] MEDS: ROPINIROLE 1 MG TAB PO SCH ×2 (09:03→20:13)
[2019-02-05] MEDS: AMLODIPINE 2.5 MG TAB PO SCH (09:03)
[2019-02-05] MEDS: METOPROLOL 50 MG TAB PO SCH ×2 (09:03→20:14)
[2019-02-05] MEDS: CHOLECALCIFEROL 1,000 UNIT TAB PO SCH (09:13)
[2019-02-05] MEDS: MULTIVITAMINS THERAPEUTIC TAB PO SCH (09:42)
--- NOTE | 2019-02-05 10:44 | CONS ---
Assessment/Plan Assessment/Plan Assessment/Plan (Daily) INPATIENT CONSULTATION REQUESTING PHYSICIAN: Dr. Henok Bazzi REASON FOR CONSULT: Abdominal pain, preoperative cardiac consultation. HISTORY OF PRESENT ILLNESS: Patient is a 68-year-old -[place] female well-known to myself with the following problems 1. Rheumatic heart disease status post aortic valve replacement with 25 mm aortic bioprosthetic valve, status post 29 mm mitral valve replacement, left atrial appendage ligation and biatrial maze 09/12 at [facility]. 2. Hypertension. 3. Hyperlipidemia. 4. Chronic pain syndrome. 5. Obstructive sleep apnea in the past. 6. Iodine allergy. 7. Lumbar sacral disc disease status post laminectomy 09/14. 8. Small CVA post laminectomy 10/12- neurologic work-up. 9. History of prior colonic polyps removed 2016. 10. Degenerative joint disease status post right knee replacement in 2005 with revision 2016. 11. Minimal cerebrovascular disease left common carotid disease on carotid duplex 01/12. 12. History of esophageal reflux. 13. Known ectopic atrial rhythmstable 14. Chronic insomnia. 15. Mild pulmonary hypertension on last echocardiogram. 16. Mild chronic diastolic heart failure. 17. Restless leg syndrome. Patient admitted twice this month with abdominal pain which started January 27 was discharged the first time and readmitted. Apparently per notes has had negative abdominal CT scan with only possible mesenteric panniculitis, splenic cyst, and pericholecystic fluid, patient had negative ultrasound of the abdomen, negative HIDA scan, and underwent endoscopy and colonoscopy which were unrevealing per Dr. Bazzi this admission. From a cardiac standpoint she has been stable recently had an echocardiogram in November of this year revealing mildly calcified bioprosthetic valves but no significant stenosis or regurgitation with preserved left ventricular function, did not have coronary disease on angiography in 08/12, had minimal left, carotid disease on carotid scan 01/12. RISK FACTORS age, hypertension, hyperlipidemia, there is no diabetes gout smoking or family history of early heart disease or sudden . PAST MEDICAL HISTORY: 1. As above PAST SURGICAL HISTORY: Appendectomy with partial hysterectomy at age 35, tonsillectomy as a child, colon polyps removed by colonoscopy 2016, multiple epidural injections cervical and lumbar last in 2016 lumbar and December 2018 cervical, laminectomy 09/14, bilateral shoulder replacements last 2015, right knee replacement 2005 with revision 05/12. MEDICATIONS: At home have been on aspirin 81 mg a day, Lipitor 10 mg a day, amlodipine 2.5 mg a day, Plavix 75 mg a day for her recent stroke, Lasix 20 mg a day, Cleocin dental prophylaxis, metoprolol 50 twice daily, multivitamin magnesium, ropinirole 0.5 mg 1 in the morning and 2 in the evening, vitamin D, Lidoderm patch, Vicodin as needed. Currently on same medications except Plavix has been held. ALLERGIES: Iodine allergy SOCIAL HISTORY: Patient lives alone with caregivers. FAMILY HISTORY: No significant history of premature coronary disease or sudden . REVIEW OF SYSTEMS: Patient denied any fevers, chills, weight loss, nausea, vomiting, diarrhea, constipation, cough, hemoptysis, dysuria, hematuria, nocturia, any neurologic symptoms, headache, any chest pains, dyspnea, PND, orthopnea, leg edema, or palpitations. All other review of systems were normal. Patient continues to have constant abdominal pain relieved only with pain medications, chronic lower back pain. PHYSICAL EXAMINATION: Vital signs please see chart. HEENT; no JVD, no HJR, carotids 2 over 4+ without bruits. Chest: Clear to auscultation and percussion, no rales, wheezes or rhonchi. Well-healed sternotomy scar Cardiac: S4, S1, S2 with normal physiologic splitting, 1/6 systolic ejection murmur, no rub click or diastolic murmur noted. Abdominal: Bowel sounds positive, soft significantly tender pinpoint in below xiphoid process no rebound negative Nj sign , no abdominal bruit noted, no hepatosplenomegaly. Extremities: No cyanosis, clubbing, or edema. Negative Homans sign or palpable cords. Pulses: 2/4 pulses diffusely no bruits noted. ADDITIONAL DATA: Normal CBC except for sedimentation rate elevated at 40, procalcitonin elevated 0.13, normal electrolytes renal function, negative lipase or amylase elevation, normal liver test, urine analysis negative. Chest x-ray poststernotomy aortic valve and mitral valve replacements noted no congestive heart failure no wide mediastinum. EKG revealed ectopic atrial rhythm otherwise normal tracing. No significant change from prior EKG from 01/[address] scan, abdominal sonogram, HIDA scan, noscapine colonoscopy results as mentioned above. ASSESSMENT: 1. Abdominal pain unclear etiology possible due to ventral hernia. 2. History of rheumatic heart disease status post aortic and mitral valve replacements bioprosthetic as mentioned above with left atrial appendage ligation and maze procedure 09/12 at [facility]. Valve is functioning normally. 3. Hypertensioncontrolled. 4. Hyperlipidemia on statin. 5. Degenerative joint disease status post knee replacement 2005 with revision 2016. 6. Lumbar sacral and cervical disc disease status post lumbar laminectomy 09/14 and cervical epidural 01/12. 7. CVA small 10/12-- negative neurologic and cardiac work-up 8. Chronic pain syndrome. 9. Iodine allergy. 10. Restless leg syndrome. 11. Chronic insomnia. 12. Esophageal reflux. 13. Mild chronic diastolic heart failure 14. Ectopic atrial rhythm chronic stable. At this time the patient is stable from a cardiac standpoint recent echocardiogram revealed no significant valvular abnormalities and bioprosthetic aortic and mitral valves. EKG unchanged and patient clinically stable. I feel the patient is stable from a cardiac standpoint for proposed ventral hernia repair which will be scheduled next week possibly. Aspirin should be continued throughout the perioperative period as well as watching fluid status with chronic diastolic heart failure and would continue furosemide and metoprolol preoperatively and postoperatively. If patient n.p.o. postoperatively will need IV Lopressor 2.5 IV every 6 and should be on monitored bed. I will be available as needed for any further cardiac issues. Discussed case with Dr. Bazzi. PLAN: 1. Continue aspirin throughout the perioperative period with 2 bioprosthetic aortic valve is in place. 2. Continue metoprolol give preoperatively continue postoperatively if n.p.o. use Lopressor 2.5 IV every 6 or every 4 will need to be on telemetry if that is the case. 3. Continue amlodipine, Lasix, avoid excessive fluid administration with mild chronic diastolic heart failure. 4. Patient acceptable candidate from a cardiac standpoint with above caveats for proposed possible ventral hernia repair. I will be available as needed for any further cardiac issues. CHAVA RONQUILLO MD Feb 05, 2019 10:44
--- NOTE | 2019-02-05 13:28 | PN ---
Date/Time of Note Date/Time of Note DATE: 02/05/19 TIME: 13:28 Assessment/Plan Lines/Catheters IV Catheter Type (from Nrsg): Saline Lock Assessment/Plan Chief Complaint/Hosp Course 1. Abdominal pain of unknown etiology. DDx: referred spinal pain vs musculoskeletal vs umbilical hernia vs. ? spigelian hernias (on CT there maybe defect at those sites per Dr. Angel's read) vs. mesenteric panniculitis +/- gastritis (pain improved with milk consumption). Discussed with her hernia re pair as possible solution (she is tender at umbilical hernia). She has agreed to ventral hernia repair. -Ventral hernia repair. Will need to discuss with GI (pending response from GI as patient reportedly had abnormal hida w cck, however unable to find report) if he believes the GB is the source of the abdominal pain (however HIDA is negative, LFTs nl, no GB wall thickening). If so, can also consider cholecystectomy concurrent with ventral hernia repair. -cardiology consult noted -Pain management 2. hypertension -Medical management 3. Anxiety -Psychiatric optimization 4. Back pain status post spine surgery -Pain management -Supportive 5. umbilical hernia: -as above 6. Chronic gastritis -PPI Thank you. Patient seen and examined in collaboration with Dr. Alistair Angel. Subjective 24 Hr Interval Summary Abdominal pain persistent. Pending response from gi regarding reported abnormal hida. No fevers, chills, sob, congested cough, cp, palpitations, connor, dizziness, n/v/d/dysuria. Exam/Review of Systems Vital Signs Vitals Vital Signs Date Temp Pulse Resp B/P (MAP) Pulse Ox O2 O2 Flow FiO2 Time Delivery Rate 02/06/19 98.1 87 18 116/76 99 Room Air 07:28 (89) Intake and Output 02/05/19 02/05/19 02/06/19 1515:00 23:00 07:00 IntakeIntake Total 300 ml 1260 ml BalanceBalance 300 ml 1260 ml Exam Free Text/Dictation Constitutional: alert, oriented Psych: nl mood Head: normocephalic, atraumatic Eyes: nl conjunctiva, EOMI, nl lids, nl sclera ENMT: nl external ears & nose, nl lips & teeth, mucosa pink and moist Neck: supple, non-tender; No jvd Respiratory: normal air movement; No congested cough Cardiovascular: regular rate and rhythm Gastrointestinal: soft, distended (Minimal), tender (right midabdomen) other (Negative Nj's by palpation; umbilical hernia-tender to palpation); No firm, No rebound or guarding Genitourinary - Female: nl external genitalia Musculoskeletal: nl extremities to inspection Extremities: normal pulses Neurological: nl mental status, nl speech, nl strength Skin: nl turgor; No rash or lesions Lymph: nl lymph nodes Results Result Diagram: 02/06/19 0532 02/06/19 0532 JEAN-CLAUDE BACK NP Feb 05, 2019 13:28
[2019-02-05 15:30] VITALS: BP 146/70; PULSE 100; RESP 18
--- NOTE | 2019-02-05 17:17 | RADRPT ---
Vent Rate: 83 bpm RR Interval: 728 msec [place] Interval: 129 msec QRS Duration: 88 msec QT Interval: 399 msec QTC Interval: 468 msec P-R-T Stem: -85 - 68 - 49 degrees Sinus or ectopic atrial rhythm...P axis (-45,135) Electronically Signed By: Vazquez Baker
[2019-02-05 20:07] VITALS: BP 122/75; PULSE 78; RESP 17
[2019-02-05] MEDS: ZOLPIDEM 5 MG TAB PO SCH ×2 (20:13→23:36)
[2019-02-05] MEDS: LATANOPROST 0.005% 2.5 ML OPH BOTH EYES SCH ×2 (20:13→23:36)
[2019-02-05] MEDS: ATORVASTATIN 10 MG TAB PO SCH (20:13)
[2019-02-06] MEDS: morphine 2 MG INJ IV PRN ×3 (00:35→20:01)
[2019-02-06 02:02] VITALS: BP 120/73; PULSE 72; RESP 16
[2019-02-06] MEDS: HYDROCODONE/APAP (10/325) TAB PO PRN (03:20)
[2019-02-06 07:28] VITALS: BP 116/76; PULSE 87; RESP 18
--- NOTE | 2019-02-06 08:13 | CONS ---
Assessment/Plan Assessment/Plan Problems: (1) HTN (hypertension) Comment: good control on current meds (2) Valvular heart disease Comment: stable post AVR/MVR... no CAD.. on ASA/Plavix... no cp.. no CHF (3) Abdominal pain Status: Acute Comment: Etiology still in doubt.. are differing opinions from GI, and appar ently, Gen Surg (have not spoken with the latter).. pt's labs are fine, and she is cleared from the cardiac standpoint, for potential surgery...? is she to get surgery? ... if so, what is to be done?...tests again reviewed in toto, but pt still w abd pain requiring IV narcotics at times... I do NOT feel she is exhibiting pain-med seeking behavior. Qualifiers: Abdominal location: generalized Qualified Codes: R10.84 - Generalized abdominal pain Consultation Date/Type/Reason Admit Date/Time Type of Consult Nephrology Date/Time of Note DATE: 02/06/19 TIME: 08:07 Hx of Present Illness Resting comfortably... seen by Crytsal yesterday, and cleared from cardiac perspective for any potential planned surgical intervention Exam/Review of Systems Vital Signs Vitals Vital Signs Date Temp Pulse Resp B/P (MAP) Pulse Ox O2 O2 Flow FiO2 Time Delivery Rate 02/06/19 98.1 87 18 116/76 99 Room Air 07:28 (89) Intake and Output 02/05/19 02/05/19 02/06/19 1515:00 23:00 07:00 IntakeIntake Total 300 ml 1260 ml BalanceBalance 300 ml 1260 ml Exam Constitutional: distress (none) Head: normocephalic, atraumatic ENMT: nl external ears & nose Neck: supple Respiratory: clear to auscultation Cardiovascular: regular rate and rhythm, nl pulses Gastrointestinal: soft, nl liver, spleen, tender (midepig as before, to mild palp) Musculoskeletal: nl extremities to inspection Extremities: normal pulses Labs Result Diagram: 02/06/19 0532 02/06/19 0532 Results 24hrs Laboratory Tests Test 02/06/19 05:32 White Blood Count 6.4 Red Blood Count 4.34 Hemoglobin 12.1 Hematocrit 38.0 Mean Corpuscular Volume 87.6 Mean Corpuscular Hemoglobin 27.9 L Mean Corpuscular Hemoglobin Concent 31.8 L Red Cell Distribution Width 14.6 H Platelet Count 256 Mean Platelet Volume 8.6 Immature Granulocytes % 0.300 Neutrophils % 50.5 Lymphocytes % 36.8 Monocytes % 8.9 Eosinophils % 3.0 Basophils % 0.5 Nucleated Red Blood Cells % 0.0 Immature Granulocytes # 0.020 Neutrophils # 3.3 Lymphocytes # 2.4 Monocytes # 0.6 Eosinophils # 0.2 Basophils # 0.0 Nucleated Red Blood Cells # 0.0 Prothrombin Time 13.2 Prothrombin Time Ratio 1.0 INR International Normalized Ratio 0.99 Activated Partial Thromboplast Time 30.3 Sodium Level 138 Potassium Level 4.4 Chloride Level 105 Carbon Dioxide Level 29 Anion Gap 4 L Blood Urea Nitrogen 11 Creatinine 0.83 Est Glomerular Filtrat Rate mL/min > 60 Glucose Level 92 Calcium Level 9.6 Total Bilirubin 0.2 Direct Bilirubin 0.00 Indirect Bilirubin 0.2 Aspartate Amino Transf (AST/SGOT) 22 Alanine Aminotransferase (ALT/SGPT) 23 Alkaline Phosphatase 82 Total Protein 7.4 Albumin 3.6 Globulin 3.80 H Albumin/Globulin Ratio 0.94 Medications Medications Current Medications Amlodipine Besylate (Norvasc) 2.5 mg DAILY PO Last administered on 02/05/19 09:03; Admin Dose 2.5 MG; Start 02/02/19 at 09:00 Aspirin (Halfprin) 81 mg DAILY PO Last administered on 02/05/19 09:01; Admin Dose 81 MG; Start 02/02/19 at 09:00 Atorvastatin Calcium (Lipitor) 10 mg QHS PO Last administered on 02/05/19 20:13; Admin Dose 10 MG; Start 02/01/19 at 21:00 Cholecalciferol (Vitamin D) 5,000 unit DAILY PO Last administered on 02/05/19 09:13; Admin Dose 5,000 UNIT; Start 02/02/19 at 09:00 Diazepam (Valium) 10 mg Q6 PRN PO ANXIETY; Start 02/01/19 at 11:00 Docusate Sodium (Colace) 100 mg BID PO Last administered on 02/05/19 20:13; Admin Dose 100 MG; Start 02/01/19 at 21:00 Metoprolol Tartrate (Lopressor) 50 mg BID PO Last administered on 02/05/19 20:14; Admin Dose 50 MG; Start 02/01/19 at 21:00 Ropinirole HCl (Requip) 1 mg BID PO Last administered on 02/05/19 20:13; Admin Dose 1 MG; Start 02/01/19 at 21:00 Zolpidem Tartrate (Ambien) 5 mg HS PO Last administered on 02/05/19 23:36; Admin Dose 5 MG; Start 02/01/19 at 21:00 Folic Acid (Folic Acid) 0.8 mg DAILY PO Last administered on 02/05/19 09:01; Admin Dose 0.8 MG; Start 02/02/19 at 09:00 Multivitamins Therapeutic (Theragran) 1 tab DAILY PO Last administered on 02/05/19 09:42; Admin Dose 1 TAB; Start 02/02/19 at 09:00 Acetaminophen/ Hydrocodone Bitart ([place] (10/325)) 1 tab Q6H PRN PO PAIN LEVEL 4-6 Last administered on 02/06/19 03:20; Admin Dose 1 TAB; Start 02/01/19 at 13:00 Latanoprost (Xalatan) 1 drop QHS BOTH EYES Last administered on 02/05/19 23:36; Admin Dose 1 DROP; Start 02/01/19 at 21:00 Ondansetron HCl (Zofran Inj) 4 mg Q6H PRN IV NAUSEA AND/OR VOMITING; Start 02/02/19 at 11:00 Morphine Sulfate (morphine) 4 mg Q6H PRN IV SEVERE PAIN LEVEL 7-10 Last administered on 02/06/19 00:35; Admin Dose 4 MG; Start 02/02/19 at 20:30 HOWARD DUNCAN MD Feb 06, 2019 08:13
[2019-02-06] MEDS ORDERED: SINCALIDE 5 MCG INJ ONE ×2 (09:18→13:00)
--- NOTE | 2019-02-06 11:24 | PN ---
Date/Time of Note Date/Time of Note DATE: 02/06/19 TIME: 11:16 SUBJECTIVE: Patient continues to have pinpoint mid abdominal pain only relieved with pain medications. Denies any chest pains dyspnea or palpitations any PND or orthopnea. Chart, medications and laboratory studies reviewed. ROS: Patient denied any fevers, chills, weight loss, nausea, vomiting, diarrhea, constipation, cough, hemoptysis, dysuria, hematuria, nocturia, any neurologic symptoms, headache, any chest pains, dyspnea, PND, orthopnea, leg edema, or palpitations. All other review of systems were normal. Continues to have mid abdominal pain relieved with narcotics. OBJECTIVE: Vital signs please see chart. HEENT; no JVD, no HJR, carotids 2 over 4+ without bruits. Chest: Clear to auscultation and percussion, no rales, wheezes or rhonchi. Cardiac: S4, S1, S2 with normal physiologic splitting, 1/6 systolic ejection murmur, no rub click or diastolic murmur noted. Abdominal: Bowel sounds positive, soft tender to palpation in mid epigastric area no rebound , no abdominal bruit noted, no hepatosplenomegaly. Extremities: No cyanosis, clubbing, or edema. Negative Homans sign or palpable cords. Pulses: 2/4 pulses diffusely no bruits noted. LABORATORY STUDIES; Normal CBC, normal electrolytes renal function glucose, normal calcium level, normal liver test, procalcitonin minimally elevated 0.13. Nuclear gallbladder CCK test preliminary results normal. ASSESSMENT: 1. Continued abdominal pain etiology undetermined. 2. Rheumatic heart disease status post aortic and mitral valve replacementsstable. 3. Hypertensioncontrolled. 4. Hyperlipidemia on statin. 5. Small CVA 10/12. 6. Lumbar sacral disc disease status post laminectomy lumbar region 09/14. 7. Chronic pain syndrome. 8. Iodine allergy. 9. Esophageal reflux. 10. Degenerative joint disease prior knee replacement with revision in the past. 11. Chronic diastolic heart failure mild pulmonary hypertension 12. Elevated sedimentation rate. At this time as mentioned in consultation patient's cardiac status stable without evidence of heart failure by exam or clinically, blood pressure controlled, and abdominal pain clearly noncardiac. Patient with elevated sedimentation rate consider vasculitis and also consider doing MR angiogram of the abdomen and pelvis looking for mesenteric ischemia or arcuate ligament compression from SMA. Will defer to gastroenterology and surgery. Unclear what surgical approach should be done at this time. Will be available as needed for any cardiac issues. PLAN: 1. Consider vasculitis work-up with elevated sedimentation rate and abdominal pain. 2. Consider MR angiogram of the abdomen and pelvis looking for mesenteric ischemia or arcuate ligament compression of SMA inpatient with iodine allergy precluding CT scan. 3. Continue medications of statin, amlodipine, aspirin, metoprolol, ropinirole. 4. I will be available as needed for any further cardiac issues and defer to gastroenterology and surgery for continued work-up of abdominal pain. CHAVA RONQUILLO MD Feb 06, 2019 11:24
[2019-02-06] MEDS: MULTIVITAMINS THERAPEUTIC TAB PO SCH (11:27)
[2019-02-06] MEDS: ASPIRIN (EC) 81 MG TAB PO SCH (11:27)
[2019-02-06] MEDS: CHOLECALCIFEROL 1,000 UNIT TAB PO SCH (11:27)
[2019-02-06] MEDS: ROPINIROLE 1 MG TAB PO SCH ×2 (11:28→21:10)
[2019-02-06] MEDS: DOCUSATE SODIUM 100 MG CAP PO SCH ×2 (11:28→21:10)
[2019-02-06] MEDS: FOLIC ACID 0.4 MG TAB PO SCH (11:28)
[2019-02-06] MEDS: AMLODIPINE 2.5 MG TAB PO SCH (11:29)
[2019-02-06] MEDS: METOPROLOL 50 MG TAB PO SCH ×2 (11:29→21:11)
--- NOTE | 2019-02-06 12:08 | PN ---
Date/Time of Note Date/Time of Note DATE: 02/06/19 TIME: 11:56 Assessment/Plan Lines/Catheters IV Catheter Type (from Nrsg): Saline Lock Assessment/Plan Chief Complaint/Hosp Course 1. Abdominal pain of unknown etiology. DDx: referred spinal pain vs musculoskeletal vs symptomatic umbilical hernia vs. ? spigelian hernias (on CT there maybe defect at those sites per Dr. Angel's read) vs. mesenteric panniculitis +/- gastritis (pain improved with milk consumption) vs GB (HIDA is negative, LFTs nl, no GB wall thickening). Discussed with her hernia repair as possible source of abdominal pain as she is very tender and has increased pain with palpation at her umbilicus. However we will await full workup by all consultants prior to surgical intervention -ASIMA [place] cck today per GI -cardiology consult noted; agree with vasculitis krueger> defer to medical team -agree with mra> we will order -Eventual ventral hernia repair once full krueger complete -Pain management 2. hypertension -Medical management 3. Anxiety -Psychiatric optimization 4. Back pain status post spine surgery -Pain management -Supportive 5. umbilical hernia: -as above 6. Chronic gastritis -PPI Thank you. Patient seen and examined in collaboration with Dr. Alistair Angel. Subjective 24 Hr Interval Summary Continues to have abdominal pain. Pending HIDA w cck. No fevers, chills, sob, congested cough, cp, palpitations, connor, dizziness, n/v/d/dysuria. Exam/Review of Systems Vital Signs Vitals Vital Signs Date Temp Pulse Resp B/P (MAP) Pulse Ox O2 O2 Flow FiO2 Time Delivery Rate 02/06/19 98.1 87 18 116/76 99 Room Air 07:28 (89) Intake and Output 02/05/19 02/05/19 02/06/19 1515:00 23:00 07:00 IntakeIntake Total 300 ml 1260 ml BalanceBalance 300 ml 1260 ml Exam Free Text/Dictation Constitutional: alert, oriented Psych: nl mood Head: normocephalic, atraumatic Eyes: nl conjunctiva, EOMI, nl lids, nl sclera ENMT: nl external ears & nose, nl lips & teeth, mucosa pink and moist Neck: supple, non-tender; No jvd Respiratory: normal air movement; No congested cough Cardiovascular: regular rate and rhythm Gastrointestinal: soft, distended (Minimal), tender (right midabdomen) other (Negative Nj's by palpation; umbilical hernia-tender to palpation); No firm, No rebound or guarding Genitourinary - Female: nl external genitalia Musculoskeletal: nl extremities to inspection Extremities: normal pulses Neurological: nl mental status, nl speech, nl strength Skin: nl turgor; No rash or lesions Lymph: nl lymph nodes Results Result Diagram: 02/06/19 0532 02/06/19 0532 JEAN-CLAUDE BACK NP Feb 06, 2019 12:08
[2019-02-06 15:22] VITALS: BP 129/72; PULSE 68; RESP 17
[2019-02-06 19:43] VITALS: BP 122/70; PULSE 68; RESP 18
[2019-02-06] MEDS: ATORVASTATIN 10 MG TAB PO SCH (21:10)
[2019-02-06] MEDS: ZOLPIDEM 5 MG TAB PO SCH (23:41)
[2019-02-06] MEDS: LATANOPROST 0.005% 2.5 ML OPH BOTH EYES SCH (23:41)
[2019-02-07] VITALS (20 sets, daily range): BP systolic 135–169; BP diastolic 77–94; PULSE 72–84; RESP 11–30
[2019-02-07] MEDS: morphine 2 MG INJ IV PRN ×4 (01:57→22:29)
--- NOTE | 2019-02-07 07:54 | CONS ---
Assessment/Plan Assessment/Plan Problems: (1) HTN (hypertension) Comment: stable and consistently well controlled (2) Valvular heart disease Comment: stable Echo... no sxs... no CHF (3) Abdominal pain Status: Acute Comment: s/p repeat (-) HIDA w CCK, altho pain w CCK infusion...? significance?... MRI/MRA (-) for stenosis, altho TED noted occluded... no other stenosis...? significance?... patient remains in pain... labs/VS normal...am uncertain of the etiliogy, and not clear if Gen Surgery has a definitive dx to explain the pain.. hopefully to hear from surgery today, as well as GI f/u Qualifiers: Abdominal location: generalized Qualified Codes: R10.84 - Generalized abdominal pain Consultation Date/Type/Reason Admit Date/Time Type of Consult Nephrology Date/Time of Note DATE: 02/07/19 TIME: 07:48 Hx of Present Illness is now NPO... ?surgery planned?.. still have not heard from Gen Surgery../explor lap?...? other?? Exam/Review of Systems Vital Signs Vitals Vital Signs Date Temp Pulse Resp B/P (MAP) Pulse Ox O2 O2 Flow FiO2 Time Delivery Rate 02/07/19 98.5 83 17 135/78 100 Room Air 07:38 (97) Intake and Output 02/06/19 02/06/19 02/07/19 1414:59 22:59 06:59 IntakeIntake Total 480 ml 720 ml 480 ml BalanceBalance 480 ml 720 ml 480 ml Exam Constitutional: alert, oriented Eyes: EOMI ENMT: nl external ears & nose Neck: supple Respiratory: clear to auscultation, normal air movement Cardiovascular: regular rate and rhythm, nl pulses Gastrointestinal: soft, nl liver, spleen, tender (midepig to mod palp as before) Musculoskeletal: nl extremities to inspection Extremities: normal pulses Neurological: MEDICAL RECEPTIONIST MEDICAL ASSISTANT II-XII intact Labs Result Diagram: 02/06/19 0532 02/06/19 0532 Medications Medications Current Medications Amlodipine Besylate (Norvasc) 2.5 mg DAILY PO Last administered on 02/06/19at 11:29; Admin Dose 2.5 MG; Start 02/02/19 at 09:00 Aspirin (Halfprin) 81 mg DAILY PO Last administered on 02/06/19 11:27; Admin Dose 81 MG; Start 02/02/19 at 09:00 Atorvastatin Calcium (Lipitor) 10 mg QHS PO Last administered on 02/06/19 21:10; Admin Dose 10 MG; Start 02/01/19 at 21:00 Cholecalciferol (Vitamin D) 5,000 unit DAILY PO Last administered on 02/06/19 11:27; Admin Dose 5,000 UNIT; Start 02/02/19 at 09:00 Diazepam (Valium) 10 mg Q6 PRN PO ANXIETY; Start 02/01/19 at 11:00 Docusate Sodium (Colace) 100 mg BID PO Last administered on 02/06/19 21:10; Admin Dose 100 MG; Start 02/01/19 at 21:00 Metoprolol Tartrate (Lopressor) 50 mg BID PO Last administered on 02/06/19 21:11; Admin Dose 50 MG; Start 02/01/19 at 21:00 Ropinirole HCl (Requip) 1 mg BID PO Last administered on 02/06/19 21:10; Admin Dose 1 MG; Start 02/01/19 at 21:00 Zolpidem Tartrate (Ambien) 5 mg HS PO Last administered on 02/06/19 23:41; Admin Dose 5 MG; Start 02/01/19 at 21:00 Folic Acid (Folic Acid) 0.8 mg DAILY PO Last administered on 02/06/19 11:28; Admin Dose 0.8 MG; Start 02/02/19 at 09:00 Multivitamins Therapeutic (Theragran) 1 tab DAILY PO Last administered on 02/06/19 11:27; Admin Dose 1 TAB; Start 02/02/19 at 09:00 Acetaminophen/ Hydrocodone Bitart ([place] (10/325)) 1 tab Q6H PRN PO PAIN LEVEL 4-6 Last administered on 02/06/19 03:20; Admin Dose 1 TAB; Start 02/01/19 at 13:00 Latanoprost (Xalatan) 1 drop QHS BOTH EYES Last administered on 02/06/19 23:41; Admin Dose 1 DROP; Start 02/01/19 at 21:00 Ondansetron HCl (Zofran Inj) 4 mg Q6H PRN IV NAUSEA AND/OR VOMITING; Start 02/02/19 at 11:00 Morphine Sulfate (morphine) 4 mg Q6H PRN IV SEVERE PAIN LEVEL 7-10 Last administered on 02/07/19at 01:57; Admin Dose 4 MG; Start 02/02/19 at 20:30 HOWARD DUNCAN MD Feb 07, 2019 07:54
[2019-02-07] MEDS: DOCUSATE SODIUM 100 MG CAP PO SCH ×2 (08:24→22:16)
[2019-02-07] MEDS: MULTIVITAMINS THERAPEUTIC TAB PO SCH (08:24)
[2019-02-07] MEDS: ROPINIROLE 1 MG TAB PO SCH ×2 (08:24→22:16)
[2019-02-07] MEDS: CHOLECALCIFEROL 1,000 UNIT TAB PO SCH (08:24)
[2019-02-07] MEDS: FOLIC ACID 0.4 MG TAB PO SCH (08:24)
[2019-02-07] MEDS: AMLODIPINE 2.5 MG TAB PO SCH (08:25)
[2019-02-07] MEDS: METOPROLOL 50 MG TAB PO SCH ×2 (08:26→22:17)
[2019-02-07] MEDS: ASPIRIN (EC) 81 MG TAB PO SCH (08:26)
--- NOTE | 2019-02-07 11:26 | CONS ---
DATE OF ADMISSION: 02/03/2019 DATE OF CONSULTATION: 02/07/2019 TYPE OF CONSULTATION: Gastroenterology. HISTORY OF PRESENT ILLNESS: The patient is a 68-year-old -French female is being investigat ed for abdominal pain. It was felt that she may have a chronic cholecystitis. The CAT scan of the a bdomen shows pericholecystic fluid; however, HIDA scan is negative. A HIDA scan with cholecystokinin stimulation is also negative. PHYSICAL EXAMINATION: GENERAL: She does have a small umbilical hernia, epigastric tenderness is noted. LABORATORY WORKUP: WBC 6400. Bilirubin 0.2. Liver enzymes are normal. MRI with MRA was done which showed evidence of celiac trunk and SMA are patent, proximal and mid segm ents of the superior mesenteric artery are patent. The distal branches of the superior mesenteric ar lilli are not well visualized, could be technical reasons. TED is occluded. CLINICAL IMPRESSION: Abdominal pain, etiology unknown, chronic cholecystitis still a possibility анна pite HIDA scan where the CCK is normal. Umbilical hernia could be symptomatic as per Dr. Angel. PLAN: I heard from the nurse that the patient has been scheduled for laparoscopic cholecystectomy, p ossible hernia repair. Discussed with Dr. Bazzi. Dictated By: SHIVAM BOONE MD NC/NTS Conf#: [id number] DID#: [id number] CC: HOWARD BAZZI MD;*EndCC*
[2019-02-07] MEDS ORDERED: IPRATROPIUM (NEB) 0.5 MG/2.5 ML AMP HHN PRN (16:30)
[2019-02-07] MEDS ORDERED: FENTAnyl 50 MCG/ML VIAL IV PRN ×3 (16:30)
[2019-02-07] MEDS ORDERED: OXYCODONE/ACETAMINOPHEN (5/325) TAB PO PRN ×2 (16:30)
[2019-02-07] MEDS ORDERED: ALBUTEROL 0.083% (NEB) 2.5 MG/3 ML AMP HHN PRN (16:30)
[2019-02-07] MEDS ORDERED: HYDROmorphONE 1 MG/5 ML IV SYRINGE IV PRN ×3 (16:30)
[2019-02-07] MEDS ORDERED: MIDAZOLAM 1 MG/ML 2 ML INJ IV PRN (16:30)
[2019-02-07] MEDS ORDERED: MEPERIDINE 25 MG INJ IV PRN (16:30)
[2019-02-07] MEDS ORDERED: LABETALOL HCL 20MG INJ IV PRN (16:30)
[2019-02-07] MEDS ORDERED: hydrALAzine 20 MG INJ IV PRN (16:30)
[2019-02-07] MEDS ORDERED: EPHEDrine 25 MG/5 ML SYG IV PRN (16:30)
[2019-02-07] MEDS ORDERED: TRIMETHOBENZAMIDE 100 MG/ML VIAL IM PRN (16:30)
[2019-02-07] MEDS ORDERED: ONDANSETRON 4 MG INJ IV PRN (16:30)
[2019-02-07] MEDS ORDERED: DIPHENHYDRAMINE 50 MG INJ IV PRN (16:30)
--- NOTE | 2019-02-07 16:45 | PREAC ---
Date/Time of Note Date/Time of Note DATE: 02/07/19 TIME: 16:41 Anesthesia Eval and Record Evaluation Time Pre-Procedure Interview DATE: 02/07/19 TIME: 16:41 Age 68 Sex female NPO: 8 hrs Preoperative diagnosis SYMPTOMATIC CHOLELITHIASIS Planned procedure LAP BRANDEN Past Medical History Past Medical History: Includes Cardio: HTN, Dyslipidemia, Other (RHEUMATIC HEART DISEASE, AVR, MVR WITH PRESERVED EF) Pulm: Sleep Apnea Neuro: CVA Surgery & Anesthesia Issues No known issue Meds Anticoagulation: No Beta Twila within 24 hr: Yes Reported Medications Lidocaine (Lidoderm) 1 Each Adh..patch, 1 EACH TP DAILY for leg pain 12 hrs on, 12 hrs off 02/01/19 Travoprost* (Travatan*) 0.004%-2.5 Ml Opht, 1 DROP BOTH EYES QHS, #1 BOTTLE 02/01/19 Potassium Chloride* (Potassium Chloride*) 20 Meq Tablet.er, 20 MEQ PO DAILY, TAB.SA 02/01/19 Magnesium Oxide (Magnesium) 500 Mg Capsule, 250 MG PO BID, CAP 02/01/19 Cholecalciferol (Vitamin D3) 5,000 Unit Tablet, 5000 UNIT PO DAILY, TAB 02/01/19 Atorvastatin Calcium (Atorvastatin Calcium) 10 Mg Tablet, 10 MG PO QHS, #30 TAB 02/01/19 Ropinirole Hcl* (Ropinirole Hcl*) 1 Mg Tablet, 1 MG PO BID, TAB TAKE 1 TAB- 1PM AND 2TAB-QHS 02/01/19 Furosemide* (Furosemide*) 20 Mg Tablet, 20 MG PO DAILY, #60 TAB 02/01/19 Zolpidem Tartrate* (Ambien*) 5 Mg Tablet, 5 MG PO NEEDED for INSOMNIA, #30 TAB 01/29/19 Docusate Sodium* (Colace*) 100 Mg Capsule, 100 MG PO BID, #60 CAP 01/29/19 Hydrocodone/Acetaminophen ([place] 10-325 Tablet) 1 Each Tablet, 1 EACH PO PRN for PAIN, TAB 01/29/19 Diclofenac Sodium* (Voltaren* Gel) 1% -100 Gm Gel, 2 GM TOP BID PRN for PAIN, #1 TUB 01/29/19 Diazepam* (Diazepam*) 10 Mg Tablet, 10 MG PO NEEDED, TAB 01/29/19 Clopidogrel Bisulfate (Clopidogrel) 75 Mg Tablet, 75 MG PO at night, #30 TAB 01/29/19 Lactobacillus Combo No.11 (Probiotic) 1 Each Cap.sprink, 1 CAP PO at night, CAP 01/29/19 Folic Acid (Folic Acid) 0.8 Mg Capsule, 0.8 MG PO DAILY, CAP 01/29/19 Multivitamin/Iron/Folic Acid (MULTI-DAY PLUS IRON TABLET) 1 Each Tablet, 1 EACH PO DAILY, TAB 01/29/19 Metoprolol Tartrate* (Lopressor*) 50 Mg Tab, 50 MG PO BID, #60 TAB 01/29/19 Aspirin Ec (Aspir 81) 81 Mg Tablet.dr, 81 MG PO DAILY, #30 TAB 01/29/19 Amlodipine Besylate* (Amlodipine Besylate*) 2.5 Mg Tablet, 2.5 MG PO DAILY, #30 TAB 01/29/19 Discontinued Reported Medications Cholecalciferol* (Vitamin D3*) 1,000 Unit Tablet, 5000 UNIT PO at bedtime, TAB 01/29/19 Potassium Chloride* (Potassium Chloride*) 20 Meq/15 Ml Liquid, 20 MEQ PO DAILY, ML 01/29/19 Atorvastatin* (Atorvastatin*) 40 Mg Tablet, 10 MG PO QHS, #30 TAB 01/29/19 Magnesium Oxide* (Magnesium Oxide*) 400 Mg Tablet, 250 MG PO BID, TAB 01/29/19 Discontinued Scripts Hydrocodone/Acetaminophen ([place] 5-325 Tablet) 1 Each Tablet, 1 TAB PO TID PRN for PAIN, #6 TAB Prov:SONY CANNON MD 01/28/19 Ibuprofen* (Motrin*) 600 Mg Tab, 600 MG PO Q8 PRN for PAIN AND/OR INFLAMMATION, #30 TAB Prov:SONY CANNON MD 01/28/19 Ondansetron Hcl* (Zofran*) 4 Mg Tablet, 4 MG PO Q8H PRN for NAUSEA AND/OR VOMITI NG, #30 TAB Prov:SONY CANNON MD 01/28/19 Current Medications Amlodipine Besylate (Norvasc) 2.5 mg DAILY PO Last administered on 02/07/19at 08:25; Admin Dose 2.5 MG; Start 02/02/19 at 09:00 Aspirin (Halfprin) 81 mg DAILY PO Last administered on 02/06/19at 11:27; Admin Dose 81 MG; Start 02/02/19 at 09:00 Atorvastatin Calcium (Lipitor) 10 mg QHS PO Last administered on 02/06/19 21:10; Admin Dose 10 MG; Start 02/01/19 at 21:00 Cholecalciferol (Vitamin D) 5,000 unit DAILY PO Last administered on 02/07/19 08:24; Admin Dose 5,000 UNIT; Start 02/02/19 at 09:00 Diazepam (Valium) 10 mg Q6 PRN PO ANXIETY; Start 02/01/19 at 11:00 Docusate Sodium (Colace) 100 mg BID PO Last administered on 02/07/19 08:24; Admin Dose 100 MG; Start 02/01/19 at 21:00 Metoprolol Tartrate (Lopressor) 50 mg BID PO Last administered on 02/07/19 08:26; Admin Dose 50 MG; Start 02/01/19 at 21:00 Ropinirole HCl (Requip) 1 mg BID PO Last administered on 02/07/19 08:24; Admin Dose 1 MG; Start 02/01/19 at 21:00 Zolpidem Tartrate (Ambien) 5 mg HS PO Last administered on 02/06/19 23:41; Admin Dose 5 MG; Start 02/01/19 at 21:00 Folic Acid (Folic Acid) 0.8 mg DAILY PO Last administered on 02/07/19 08:24; Admin Dose 0.8 MG; Start 02/02/19 at 09:00 Multivitamins Therapeutic (Theragran) 1 tab DAILY PO Last administered on 02/07/19 08:24; Admin Dose 1 TAB; Start 02/02/19 at 09:00 Acetaminophen/ Hydrocodone Bitart ([place] (10/325)) 1 tab Q6H PRN PO PAIN LEVEL 4-6 Last administered on 02/06/19 03:20; Admin Dose 1 TAB; Start 02/01/19 at 13:00 Latanoprost (Xalatan) 1 drop QHS BOTH EYES Last administered on 02/06/19 23:41; Admin Dose 1 DROP; Start 02/01/19 at 21:00 Ondansetron HCl (Zofran Inj) 4 mg Q6H PRN IV NAUSEA AND/OR VOMITING; Start 02/02/19 at 11:00 Morphine Sulfate (morphine) 4 mg Q6H PRN IV SEVERE PAIN LEVEL 7-10 Last administered on 02/07/19at 14:37; Admin Dose 4 MG; Start 02/02/19 at 20:30 Meds reviewed: Yes Allergies Coded Allergies: shellfish derived (Verified Allergy, Severe, swelling, 02/01/19) Shrimp shrimp (Verified Allergy, Severe, facial swelling, 02/01/19) white head shrimp Penicillins (Verified Allergy, Unknown, 02/01/19) iodine (Verified Allergy, Unknown, 02/01/19) Allergies Reviewed: Yes Labs/Studies Labs Reviewed: Reviewed by anesthesiologist Result Diagram: 02/06/19 0532 02/06/1932 test: N/A Studies: CXR (CARDIOMEGALY) Pre-procedure Exam Last vitals Vital Signs Date Temp Pulse Resp B/P (MAP) Pulse Ox O2 O2 Flow FiO2 Time Delivery Rate 02/07/19 97.7 74 17 139/80 97 Room Air 14:00 (99) Airway: Adequate mouth opening, Adequate thyromental dist Mallampati: Mallampati II Teeth: Normal Lung: Normal Heart: Normal ASA Physical Status ASA physical status: 3 Emergency: None Planned Anesthetic General/MAC: ETT Nerve block: TAP (bilateral) Planned Pain Management Single shot nerve block, Parenteral pain med Pre-operative Attestations Prior to commencing anesthesia and surgery, the patient was re-evaluated, there was verification of: *The patient's identity *The results of appropriate recent lab work and preoperative vital signs *The above evaluation not changing prior to induction *Anesthetic plan, risk benefits, alternative and complications discussed with patient/family; questions answered; patient/family understands, accepts and wishes to proceed. Kiran Bolaños M.D. Feb 07, 2019 16:45
[2019-02-07] MEDS ORDERED: MIDAZOLAM 1 MG/ML 2 ML INJ ONE ×2 (17:09→18:23)
[2019-02-07] MEDS ORDERED: ROCURONIUM 50 MG INJ ONE ×2 (17:09→18:23)
[2019-02-07] MEDS ORDERED: ONDANSETRON 4 MG INJ ONE ×2 (17:09→18:41)
[2019-02-07] MEDS ORDERED: FENTAnyl 50 MCG/ML VIAL ONE ×3 (17:09→19:58)
[2019-02-07] MEDS ORDERED: DEXAMETHASONE 4 MG/ML 5 ML INJ ONE ×2 (17:09→18:41)
[2019-02-07] MEDS ORDERED: PROPOFOL 0 ML ONE (17:09)
[2019-02-07] MEDS ORDERED: GLYCOPYRROLATE 0.4 MG INJ ONE ×2 (17:09→18:23)
[2019-02-07] MEDS ORDERED: CEFAZOLIN 1 GM INJ ONE (17:09)
[2019-02-07] MEDS ORDERED: NEOSTIGMINE 3 MG/3 ML SYRINGE ONE ×2 (17:09→18:23)
[2019-02-07] MEDS ORDERED: BUPIVACAINE 0.25%/EPI (SDV) 30 ML INJ ONE (17:43)
[2019-02-07] MEDS ORDERED: LIDOCAINE 1% (MPF) 30 ML INJ ONE (17:43)
[2019-02-07] MEDS ORDERED: PROPOFOL 20 ML ONE (18:23)
[2019-02-07] MEDS ORDERED: SUCCINYLCHOLINE CHLORIDE 100 MG/5 ML SYG IV ONE (18:23)
[2019-02-07] MEDS ORDERED: LIDOCAINE 2% (SDV) 5 ML INJ ONE (18:23)
[2019-02-07] MEDS ORDERED: ROPIVACAINE 0.5 % 30 ML VIAL ONE (18:24)
--- NOTE | 2019-02-07 18:32 | PN ---
Date/Time of Note Date/Time of Note DATE: 02/07/19 TIME: 18:27 Assessment/Plan Lines/Catheters IV Catheter Type (from Nrs): Saline Lock Assessment/Plan Chief Complaint/Hosp Course 1. Abdominal pain of unknown etiology. DDx: referred spinal pain vs musculoskeletal vs symptomatic umbilical hernia vs. ? spigelian hernias (on CT there maybe defect at those sites per Dr. Morales's read) vs. mesenteric panniculitis +/- gastritis (pain improved with milk consumption) vs GB (HIDA is negative, LFTs nl, no GB wall thickening). Discussed with her hernia repair as possible source of abdominal pain as she is very tender and has increased pain with palpation at her umbilicus. HIDA c CCK 76% EF (?hyperdynamic) and patient had significant abdominal pain with injection of CCK. MRA with occluded TED, o/w unimpressive. -Based on all the finding, she probably has components of biliary disease and hernia(s). After a long d/w her, decision is to proceed with lap ines, ventral hernia repair, and exploration. She may need further surgeries if larger hernias are identified. -Pain management 2. Hypertension -Medical management 3. Anxiety -Psychiatric optimization 4. Back pain status post spine surgery -Pain management -Supportive 5. Ventral hernia: -as above 6. Chronic gastritis -PPI -Diet, lifestyle optimization Thank you Subjective 24 Hr Interval Summary HIDA c CCK 76% EF (?hyperdynamic) and patient had significant abdominal pain with injection of CCK. MRA with occluded TED, o/w unimpressive. Continues to have abdominal pain. No fevers, chills, sob, congested cough, cp, palpitations, connor, dizziness, nausea, vomiting, dysuria, change in bowel habits. Exam/Review of Systems Vital Signs Vitals Vital Signs Date Temp Pulse Resp B/P (MAP) Pulse Ox O2 O2 Flow FiO2 Time Delivery Rate 02/07/19 97.7 74 17 139/80 97 Room Air 14:00 (99) Intake and Output 02/06/19 02/06/19 02/07/19 1515:00 23:00 07:00 IntakeIntake Total 480 ml 720 ml 480 ml BalanceBalance 480 ml 720 ml 480 ml Exam Free Text/Dictation Constitutional: alert, oriented Psych: nl mood Head: normocephalic, atraumatic Eyes: nl conjunctiva, EOMI, nl lids, nl sclera ENMT: nl external ears & nose, nl lips & teeth, mucosa pink and moist Neck: supple, non-tender; No jvd Respiratory: normal air movement; No congested cough Cardiovascular: regular rate and rhythm Gastrointestinal: soft, distended (Minimal), tender (right midabdomen) other (Negative Nj's by palpation; umbilical hernia-tender to palpation); No firm, No rebound or guarding Genitourinary - Female: nl external genitalia Musculoskeletal: nl extremities to inspection Extremities: normal pulses Neurological: nl mental status, nl speech, nl strength Skin: nl turgor; No rash or lesions Lymph: nl lymph nodes Results Result Diagram: 02/06/19 0532 02/06/19 0532 TAE MORALES MD Feb 07, 2019 18:32
[2019-02-07] MEDS ORDERED: FAMOTIDINE 20 MG INJ ONE (18:41)
[2019-02-07] MEDS ORDERED: EPHEDrine 25 MG/5 ML SYG ONE (18:41)
[2019-02-07] MEDS ORDERED: CLINDAMYCIN 900 MG/D5W (PMX) 50 ML IVPB ONE (19:00)
[2019-02-07] MEDS ORDERED: LABETALOL HCL 20MG INJ ONE (19:39)
--- NOTE | 2019-02-07 20:25 | PAC ---
Date/Time of Note Date/Time of Note DATE: 02/07/19 TIME: 20:24 Post-Anesthesia Notes Post-Anesthesia Note Last documented vital signs Vital Signs Date Temp Pulse Resp B/P (MAP) Pulse Ox O2 O2 Flow FiO2 Time Delivery Rate 02/07/19 97.7 74 17 139/80 97 Room Air 14:00 (99) Activity: WNL Respiratory function: WNL Cardiovascular function: WNL Mental status: Baseline Pain reasonably controlled: Yes Hydration appropriate: Yes Nausea/Vomiting absent: Yes Comments BP: 140/85 HR: 75 RR: 15 T: 98 SaO2: 99% MADONNA BALBUENA MD Feb 07, 2019 20:25
--- NOTE | 2019-02-07 20:29 | OPR ---
Date/Time of Note Date/Time of Note DATE: 02/07/19 TIME: 20:16 Operative Report Free Text/Dictation Preoperative Diagnosis: Abdominal pain Possible biliary dyskinesia Gallbladder ejection fraction 76% Ventral incisional hernia Thrombosed TED Postoperative Diagnosis: Abdominal pain Possible biliary dyskinesia with gallbladder ejection fraction of 70 for 6% Ventral incisional hernia Bilateral inguinal hernias Right lower quadrant adhesions Thrombosed TED Abnormal liver color (Slight close) Easy bleeding and oozing from raw surfaces Difficult operation Operation(s) Performed: 1. 3 port laparoscopic cholecystectomy 2. Ventral incisional hernia primary repair 3. Indigocarmine green fluorescence cholangiography 4. Local anesthetic injection, [id number] 5. Difficult operation, modifier 22 Surgeon: Tae Angel MD [place] Operator: None Anesthesia: general, local, & regional Anesthesiologist: Imelda Banks MD Estimated Blood Loss: 300 ml's Specimens: Gallbladder Tubes/Drains: 15 Setswana Nura Complications: None Pt Condition Post Procedure: stable Disposition: PACU Indications: 68-year-old female with abdominal pain of unclear etiology. HIDA scan identified 76% ejection fracture. However she had significant pain upon CCK injection. She also has a ventral incisional hernia that center. On CT scan there is possible lower quadrant hernias as well. MRA identifies thrombosed TED otherwise normal. After full discussion with patient and multiple computing consultant decision was made to proceed with cholecystectomy and ventral incisional hernia repair. She is fully agreeable to the plan. Risks include but are not limited to bleeding, infection, abscess, seroma, damage to intestines, damage to the liver, damage to biliary tree, hernia formation, chronic pain, biloma, need for reoperations or further surgeries, HI, stroke, PE, DVT, pneumonia, organ failures, or even . She has a higher bleeding risk due to the need to continue aspirin per cardiology. Procedure Description: Patient was brought and placed supine on the operating table SCDs were placed, preoperative antibiotics were administered, all pressure points were well- padded, and after induction of anesthesia patient was prepped and draped in usual sterile fashion and timeout was performed. Incision was made in the supra umbilical region and using blunt dissection through the ventral hernia abdomen is entered, a 12 mm port was placed, abdomen is insufflated to 15 mmHg CO2. Laparoscopy was performed with a 5 mm 30 scope. No injuries were identified. The liver looks somewhat abnormal color. Gallbladder is without evidence of infection. 5 mm port is placed in subxiphoid under direct visualization followed by another 5 mm port in the right upper quadrant. All port sites were injected with quarter percent Marcaine with epi and 1% lidocaine prior to any incisions. Bilateral transversus abdominis plane block was performed by anesthesiologist prior to prepping the patient. Identifies adhesions in the right lower quadrant. Intestines look okay. She does have bilateral inguinal hernias. She does have some eventrations on bilateral lateral abdominal lyons as well in the lower region. Patient was placed in reverse Trendelenburg and right side up on gallbladder was retracted superolaterally. Using electrocautery and blunt dissection I was able to identify the cystic artery and cystic duct. The duct tapered into the gallbladder. Full critical angle view was identified. Indigocarmine green fluorescence cholangiography is performed identifying the cystic duct going into the gallbladder and the common bile duct lighting up going into the intestines. Both structures were clipped twice proximally and once distally and transected. The gallbladder was taken off the liver with electrocautery. There was significant oozing from the raw surfaces which took a while to control and made the procedure more difficult. Hemostasis was actually obtained. Gallbladder was placed in an Endo Catch bag and removed through the 12mm port site. There was complete hemostasis. 15F nura drain was placed through lateral incision to drain the liver and gallbladder sites due to the significant oozing. Ventral hernia fascia was closed with Endo Close of an 0 Vicryl in a [id number] manner. Ports and CO2 were removed under direct visualization. Next complete hemostasis. Wounds were thoroughly irrigated skin was closed with 4-0 Monocryl in subcuticular fashion. Dermabond was applied. Patient was extubated and transferred to recovery room in stable condition and all counts were correct and the end of the operation 2. TAE ANGEL MD Feb 07, 2019 20:26
[2019-02-07] MEDS ORDERED: ACETAMINOPHEN 1000MG/100ML IV 100 ML IVPB ONE (21:00)
[2019-02-07] MEDS: ZOLPIDEM 5 MG TAB PO SCH (21:00)
[2019-02-07] MEDS: ATORVASTATIN 10 MG TAB PO SCH (22:16)
[2019-02-07] MEDS: LATANOPROST 0.005% 2.5 ML OPH BOTH EYES SCH (22:27)
[2019-02-08 00:50] VITALS: BP 129/77; PULSE 79; RESP 16
[2019-02-08 01:50] VITALS: BP 133/77; PULSE 76; RESP 16
[2019-02-08] MEDS: morphine 2 MG INJ IV PRN ×5 (04:48→21:30)
--- NOTE | 2019-02-08 08:02 | CONS ---
Assessment/Plan Assessment/Plan Problems: (1) HTN (hypertension) Comment: good and stable (2) Valvular heart disease Comment: asx (3) Abdominal pain Status: Acute Comment: POD #1 s/p lap ines + hernia repair... labs show sl LFT bump, otherwise OK.. typical post op pain, but (+) BS.. mobilize per Dr Baltazar fang echeck labs in am Qualifiers: Abdominal location: generalized Qualified Codes: R10.84 - Generalized abdominal pain (4) Elevated liver function tests Comment: post op lp ines.. recheck in am Consultation Date/Type/Reason Admit Date/Time Type of Consult Nephrology Date/Time of Note DATE: 02/08/19 TIME: 07:58 Hx of Present Illness is now POD #1 s/p lap ines + incisional hernia repair last patricia w Dr Angel Exam/Review of Systems Vital Signs Vitals Vital Signs Date Temp Pulse Resp B/P (MAP) Pulse Ox O2 O2 Flow FiO2 Time Delivery Rate 02/08/19 98.1 76 16 133/77 97 01:50 (95) 02/07/19 Nasal 2.0 21:06 Cannula Intake and Output 02/07/19 02/07/19 02/08/19 1515:00 23:00 07:00 IntakeIntake Total 1600 ml 1180 ml OutputOutput Total 520 ml 25 ml BalanceBalance 1080 ml 1155 ml Exam Constitutional: alert, oriented Head: normocephalic Eyes: nl conjunctiva Neck: supple Respiratory: clear to auscultation, normal air movement Cardiovascular: regular rate and rhythm, nl pulses Gastrointestinal: soft, other ((+) BS.. RENATE in plave RUQ) Extremities: normal pulses, calf tenderness (none) Labs Result Diagram: 02/08/19 0507 02/08/19 0507 Results 24hrs Laboratory Tests Test 02/08/19 05:07 White Blood Count 6.7 Red Blood Count 4.78 Hemoglobin 13.2 Hematocrit 41.8 Mean Corpuscular Volume 87.4 Mean Corpuscular Hemoglobin 27.6 L Mean Corpuscular Hemoglobin Concent 31.6 L Red Cell Distribution Width 14.4 Platelet Count 294 Mean Platelet Volume 9.3 Immature Granulocytes % 0.400 Neutrophils % 80.1 H Lymphocytes % 14.9 L Monocytes % 4.3 Eosinophils % 0.0 Basophils % 0.3 Nucleated Red Blood Cells % 0.0 Immature Granulocytes # 0.030 Neutrophils # 5.4 Lymphocytes # 1.0 Monocytes # 0.3 Eosinophils # 0.0 Basophils # 0.0 Nucleated Red Blood Cells # 0.0 Sodium Level 137 Potassium Level 4.6 Chloride Level 100 Carbon Dioxide Level 26 Anion Gap 11 # Blood Urea Nitrogen 11 Creatinine 0.76 Est Glomerular Filtrat Rate mL/min > 60 Glucose Level 127 Calcium Level 9.9 Total Bilirubin 0.4 Direct Bilirubin 0.00 Indirect Bilirubin 0.4 Aspartate Amino Transf (AST/SGOT) 127 H Alanine Aminotransferase (ALT/SGPT) 86 H Alkaline Phosphatase 95 Total Protein 8.3 H Albumin 4.1 Globulin 4.20 H Albumin/Globulin Ratio 0.97 Amylase Level 95 Lipase 18 L Medications Medications Current Medications Amlodipine Besylate (Norvasc) 2.5 mg DAILY PO Last administered on 02/07/19 08:25; Admin Dose 2.5 MG; Start 02/02/19 at 09:00 Aspirin (Halfprin) 81 mg DAILY PO Last administered on 02/06/19 11:27; Admin Dose 81 MG; Start 02/02/19 at 09:00 Atorvastatin Calcium (Lipitor) 10 mg QHS PO Last administered on 02/07/19 22:16; Admin Dose 10 MG; Start 02/01/19 at 21:00 Cholecalciferol (Vitamin D) 5,000 unit DAILY PO Last administered on 02/07/19 08:24; Admin Dose 5,000 UNIT; Start 02/02/19 at 09:00 Diazepam (Valium) 10 mg Q6 PRN PO ANXIETY; Start 02/01/19 at 11:00 Docusate Sodium (Colace) 100 mg BID PO Last administered on 02/07/19 22:16; Admin Dose 100 MG; Start 02/01/19 at 21:00 Metoprolol Tartrate (Lopressor) 50 mg BID PO Last administered on 02/07/19 22:17; Admin Dose 50 MG; Start 02/01/19 at 21:00 Ropinirole HCl (Requip) 1 mg BID PO Last administered on 02/07/19 22:16; Admin Dose 1 MG; Start 02/01/19 at 21:00 Zolpidem Tartrate (Ambien) 5 mg HS PO Last administered on 02/06/19 23:41; Admin Dose 5 MG; Start 02/01/19 at 21:00 Folic Acid (Folic Acid) 0.8 mg DAILY PO Last administered on 02/07/19 08:24; Admin Dose 0.8 MG; Start 02/02/19 at 09:00 Multivitamins Therapeutic (Theragran) 1 tab DAILY PO Last administered on 02/07/19 08:24; Admin Dose 1 TAB; Start 02/02/19 at 09:00 Acetaminophen/ Hydrocodone Bitart ([place] (10/325)) 1 tab Q6H PRN PO PAIN LEVEL 4-6 Last administered on 02/06/19 03:20; Admin Dose 1 TAB; Start 02/01/19 at 13:00 Latanoprost (Xalatan) 1 drop QHS BOTH EYES Last administered on 02/07/19 22:27; Admin Dose 1 DROP; Start 02/01/19 at 21:00 Ondansetron HCl (Zofran Inj) 4 mg Q6H PRN IV NAUSEA AND/OR VOMITING; Start 02/02/19 at 11:00 Morphine Sulfate (morphine) 4 mg Q6H PRN IV SEVERE PAIN LEVEL 7-10 Last administered on 02/08/19 04:48; Admin Dose 4 MG; Start 02/02/19 at 20:30 HOWARD DUNCAN MD Feb 08, 2019 08:02
[2019-02-08 08:19] VITALS: BP 141/74; PULSE 80; RESP 19
[2019-02-08] MEDS: FOLIC ACID 0.4 MG TAB PO SCH (08:33)
[2019-02-08] MEDS: DOCUSATE SODIUM 100 MG CAP PO SCH ×2 (08:33→21:18)
[2019-02-08] MEDS: ROPINIROLE 1 MG TAB PO SCH ×2 (08:33→21:18)
[2019-02-08] MEDS: CHOLECALCIFEROL 1,000 UNIT TAB PO SCH (08:33)
[2019-02-08] MEDS: METOPROLOL 50 MG TAB PO SCH ×2 (08:33→21:19)
[2019-02-08] MEDS: MULTIVITAMINS THERAPEUTIC TAB PO SCH (08:33)
[2019-02-08] MEDS: AMLODIPINE 2.5 MG TAB PO SCH (08:33)
[2019-02-08] MEDS: ASPIRIN (EC) 81 MG TAB PO SCH (08:33)
--- NOTE | 2019-02-08 11:15 | PN ---
Date/Time of Note Date/Time of Note DATE: 02/08/19 TIME: 11:11 Assessment/Plan Lines/Catheters IV Catheter Type (from Nrsg): Saline Lock Assessment/Plan Chief Complaint/Hosp Course 1. Abdominal pain of unknown etiology. DDx: referred spinal pain vs musculoskeletal vs symptomatic umbilical hernia vs. ? spigelian hernias (on CT there maybe defect at those sites per Dr. Angel's read) vs. mesenteric panniculitis +/- gastritis vs GB (HIDA is negative, LFTs nl, no GB wall thickening). HIDA c CCK 76% EF (?hyperdynamic) and patient had significant abdominal pain with injection of CCK. MRA with occluded TED, o/w unimpressive. Possible biliary dyskinesia with gallbladder EF of 76%, ventral incisional hernia, bilateral inguinal hernias, thrombosed TED, right lower quadrant adhesi ons, abnormal liver color status post 3 port laparoscopic cholecystectomy, ventral incisional hernia repair 02/07/2019 -IS -ambulate -ice pack to abdominal wall -advance diet as tolerated -Abdominal binder -Pain management -RENATE drain 2. Hypertension -Medical management 3. Anxiety -Psychiatric optimization 4. Back pain status post spine surgery -Pain management -Supportive 5. Ventral hernia: -as above 6. Chronic gastritis -PPI -Diet, lifestyle optimization 7. Constipation: -Bowel optimization Thank you. Patient seen and examined in collaboration with Dr. Alistair Angel. Subjective 24 Hr Interval Summary Status post laparoscopic cholecystectomy and ventral hernia repair yesterday. Original abdominal pain is resolved. No fevers, chills, sob, congested cough, cp, palpitations, connor, dizziness, nausea, vomiting, diarrhea, dysuria. Exam/Review of Systems Vital Signs Vitals Vital Signs Date Temp Pulse Resp B/P (MAP) Pulse Ox O2 O2 Flow FiO2 Time Delivery Rate 02/08/19 Nasal 2.0 09:21 Cannula 02/08/19 98.4 80 19 141/74 100 08:19 (96) Intake and Output 02/07/19 02/07/19 02/08/19 1515:00 23:00 07:00 IntakeIntake Total 1600 ml 1180 ml OutputOutput Total 520 ml 25 ml BalanceBalance 1080 ml 1155 ml Exam Free Text/Dictation Constitutional: alert, oriented Psych: nl mood Head: normocephalic, atraumatic Eyes: nl conjunctiva, EOMI, nl lids, nl sclera ENMT: nl external ears & nose, nl lips & teeth, mucosa pink and moist Neck: supple, non-tender; No jvd Respiratory: normal air movement; No congested cough Cardiovascular: regular rate and rhythm Gastrointestinal: soft, distended (Minimal), tender (mid abdomen, la-incisional; incision sites dry without drainage/bruising/discoloration; RENATE drain with serosanguineous) No firm, No rebound or guarding Genitourinary - Female: nl external genitalia Musculoskeletal: nl extremities to inspection Extremities: normal pulses Neurological: nl mental status, nl speech, nl strength Skin: nl turgor; No rash or lesions Lymph: nl lymph nodes Results Result Diagram: 02/08/19 0507 02/08/19 0507 JEAN-CLAUDE BACK NP Feb 08, 2019 11:15
[2019-02-08 14:22] VITALS: BP 138/68; PULSE 75; RESP 20
[2019-02-08 20:00] VITALS: BP 133/76; PULSE 89; RESP 20
[2019-02-08] MEDS: ATORVASTATIN 10 MG TAB PO SCH (21:18)
[2019-02-08] MEDS: ZOLPIDEM 5 MG TAB PO SCH (22:53)
[2019-02-08] MEDS: LATANOPROST 0.005% 2.5 ML OPH BOTH EYES SCH (22:54)
[2019-02-09 01:35] VITALS: BP 129/75; PULSE 78; RESP 18
[2019-02-09] MEDS: morphine 2 MG INJ IV PRN ×6 (01:43→22:17)
[2019-02-09 08:06] VITALS: BP 127/80; PULSE 72; RESP 18
--- NOTE | 2019-02-09 08:51 | PN ---
Date/Time of Note Date/Time of Note DATE: 02/09/19 TIME: 08:48 Assessment/Plan VTE Prophylaxis Risk score (from Ns)>0 risk: 4 SCD applied (from [facility] [place]): No SCD contraindicated: low risk/ambulating Pharmacological prophylaxis: other Pharm contraindication: low risk/ambulating Lines/Catheters IV Catheter Type (from [facility]): Saline Lock Assessment/Plan Assessment/Plan 1. Post op ines and hernia repair, path pending 2. Abd discomfort is less and different then preop 3. Throat discomfort, lozenges ordered 4. Labs rev 5. PT to mobilize if not ordered Result Diagram: 02/09/19 0532 02/09/19 0532 Results 24hrs Laboratory Tests Test 02/09/19 05:32 White Blood Count 8.5 # Red Blood Count 4.27 Hemoglobin 12.3 Hematocrit 37.6 Mean Corpuscular Volume 88.1 Mean Corpuscular Hemoglobin 28.8 L Mean Corpuscular Hemoglobin Concent 32.7 Red Cell Distribution Width 14.6 H Platelet Count 259 Mean Platelet Volume 9.2 Immature Granulocytes % 0.200 Neutrophils % 57.8 Lymphocytes % 31.5 Monocytes % 8.7 Eosinophils % 1.4 Basophils % 0.4 Nucleated Red Blood Cells % 0.0 Immature Granulocytes # 0.020 Neutrophils # 4.9 Lymphocytes # 2.7 Monocytes # 0.7 Eosinophils # 0.1 Basophils # 0.0 Nucleated Red Blood Cells # 0.0 Sodium Level 138 Potassium Level 4.2 Chloride Level 102 Carbon Dioxide Level 30 Anion Gap 6 Blood Urea Nitrogen 14 Creatinine 1.04 H Est Glomerular Filtrat Rate mL/min > 60 Glucose Level 92 Calcium Level 9.3 Total Bilirubin 0.3 Direct Bilirubin 0.00 Indirect Bilirubin 0.3 Aspartate Amino Transf (AST/SGOT) 66 H Alanine Aminotransferase (ALT/SGPT) 74 H Alkaline Phosphatase 79 Total Protein 7.5 Albumin 3.7 Globulin 3.80 H Albumin/Globulin Ratio 0.97 Subjective 24 Hr Interval Summary Respiratory: No cough, No shortness of breath Cardiovascular: No chest pain Gastrointestinal: other (bloated with mild upper abd discomfort w/o bm) Genitourinary: No no complaints Exam/Review of Systems Exam Vitals Vital Signs Date Temp Pulse Resp B/P (MAP) Pulse Ox O2 O2 Flow FiO2 Time Delivery Rate 02/09/19 98.0 72 18 127/80 100 08:06 (96) 02/09/19 Room Air 01:35 02/08/19 2.0 09:21 Intake and Output 02/08/19 02/08/19 02/09/19 1515:00 23:00 07:00 IntakeIntake Total 780 ml 240 ml OutputOutput Total 27 ml 30 ml BalanceBalance 753 ml 210 ml Neck: No jvd Respiratory: clear to auscultation Cardiovascular: regular rate and rhythm Gastrointestinal: soft (mild epig tend), distended Extremities: No tenderness Results Results 24hrs Laboratory Tests Test 02/09/19 05:32 White Blood Count 8.5 # Red Blood Count 4.27 Hemoglobin 12.3 Hematocrit 37.6 Mean Corpuscular Volume 88.1 Mean Corpuscular Hemoglobin 28.8 L Mean Corpuscular Hemoglobin Concent 32.7 Red Cell Distribution Width 14.6 H Platelet Count 259 Mean Platelet Volume 9.2 Immature Granulocytes % 0.200 Neutrophils % 57.8 Lymphocytes % 31.5 Monocytes % 8.7 Eosinophils % 1.4 Basophils % 0.4 Nucleated Red Blood Cells % 0.0 Immature Granulocytes # 0.020 Neutrophils # 4.9 Lymphocytes # 2.7 Monocytes # 0.7 Eosinophils # 0.1 Basophils # 0.0 Nucleated Red Blood Cells # 0.0 Sodium Level 138 Potassium Level 4.2 Chloride Level 102 Carbon Dioxide Level 30 Anion Gap 6 Blood Urea Nitrogen 14 Creatinine 1.04 H Est Glomerular Filtrat Rate mL/min > 60 Glucose Level 92 Calcium Level 9.3 Total Bilirubin 0.3 Direct Bilirubin 0.00 Indirect Bilirubin 0.3 Aspartate Amino Transf (AST/SGOT) 66 H Alanine Aminotransferase (ALT/SGPT) 74 H Alkaline Phosphatase 79 Total Protein 7.5 Albumin 3.7 Globulin 3.80 H Albumin/Globulin Ratio 0.97 Medications Medication Current Medications Amlodipine Besylate (Norvasc) 2.5 mg DAILY PO Last administered on 02/08/19at 08:33; Admin Dose 2.5 MG; Start 02/02/19 at 09:00 Aspirin (Halfprin) 81 mg DAILY PO Last administered on 02/08/19at 08:33; Admin Dose 81 MG; Start 02/02/19 at 09:00 Atorvastatin Calcium (Lipitor) 10 mg QHS PO Last administered on 02/08/19at 21:18; Admin Dose 10 MG; Start 02/01/19 at 21:00 Cholecalciferol (Vitamin D) 5,000 unit DAILY PO Last administered on 02/08/19 08:33; Admin Dose 5,000 UNIT; Start 02/02/19 at 09:00 Diazepam (Valium) 10 mg Q6 PRN PO ANXIETY; Start 02/01/19 at 11:00 Docusate Sodium (Colace) 100 mg BID PO Last administered on 02/08/19 21:18; Admin Dose 100 MG; Start 02/01/19 at 21:00 Metoprolol Tartrate (Lopressor) 50 mg BID PO Last administered on 02/08/19 21:19; Admin Dose 50 MG; Start 02/01/19 at 21:00 Ropinirole HCl (Requip) 1 mg BID PO Last administered on 02/08/19 21:18; Admin Dose 1 MG; Start 02/01/19 at 21:00 Zolpidem Tartrate (Ambien) 5 mg HS PO Last administered on 02/08/19 22:53; Admin Dose 5 MG; Start 02/01/19 at 21:00 Folic Acid (Folic Acid) 0.8 mg DAILY PO Last administered on 02/08/19 08:33; Admin Dose 0.8 MG; Start 02/02/19 at 09:00 Multivitamins Therapeutic (Theragran) 1 tab DAILY PO Last administered on 02/08/19 08:33; Admin Dose 1 TAB; Start 02/02/19 at 09:00 Latanoprost (Xalatan) 1 drop QHS BOTH EYES Last administered on 02/08/19 22:54; Admin Dose 1 DROP; Start 02/01/19 at 21:00 Ondansetron HCl (Zofran Inj) 4 mg Q6H PRN IV NAUSEA AND/OR VOMITING; Start at 11:00 Acetaminophen/ Hydrocodone Bitart ([place] (10/325)) 1 tab Q4 PRN PO PAIN LEVEL 4-6; Start 02/08/19 at 08:30 Morphine Sulfate (morphine) 4 mg Q4 PRN IV SEVERE PAIN LEVEL 7-10 Last admi nistered on 02/09/19 05:48; Admin Dose 4 MG; Start 02/08/19 at 08:30 HUMA CASTELLANO MD Feb 09, 2019 08:51
[2019-02-09] MEDS: FOLIC ACID 0.4 MG TAB PO SCH (09:10)
[2019-02-09] MEDS: AMLODIPINE 2.5 MG TAB PO SCH (09:11)
[2019-02-09] MEDS: MULTIVITAMINS THERAPEUTIC TAB PO SCH (09:11)
[2019-02-09] MEDS: METOPROLOL 50 MG TAB PO SCH ×2 (09:11→20:18)
[2019-02-09] MEDS: CHOLECALCIFEROL 1,000 UNIT TAB PO SCH (09:11)
[2019-02-09] MEDS: ASPIRIN (EC) 81 MG TAB PO SCH (09:11)
[2019-02-09] MEDS: ROPINIROLE 1 MG TAB PO SCH ×2 (09:11→20:16)
[2019-02-09] MEDS: DOCUSATE SODIUM 100 MG CAP PO SCH ×2 (09:11→20:16)
[2019-02-09] MEDS: CEPASTAT LOZENGE MT PRN (11:46)
--- NOTE | 2019-02-09 14:44 | PN ---
Date/Time of Note Date/Time of Note DATE: 02/09/19 TIME: 14:41 Assessment/Plan Lines/Catheters IV Catheter Type (from Nrs): Saline Lock Assessment/Plan Chief Complaint/Hosp Course 1. Abdominal pain of unknown etiology. DDx: referred spinal pain vs musculoskeletal vs symptomatic umbilical hernia vs. ? spigelian hernias (on CT there maybe defect at those sites per Dr. Angel's read) vs. mesenteric panniculitis +/- gastritis vs GB (HIDA is negative, LFTs nl, no GB wall thickening). HIDA c CCK 76% EF (?hyperdynamic) and patient had significant abdominal pain with injection of CCK. MRA with occluded TED, o/w unimpressive. Possible biliary dyskinesia with gallbladder EF of 76%, ventral incisional hernia, bilateral inguinal hernias, thrombosed TED, right lower quadrant adhesi ons, abnormal liver color status post 3 port laparoscopic cholecystectomy, ventral incisional hernia repair 02/07/2019 -Continue IS -Continue to ambulate -ice pack to abdominal wall -advance diet as tolerated -Abdominal binder -Pain management -RENATE drain> if minimal output will DC tomorrow 2. Hypertension -Medical management 3. Anxiety -Psychiatric optimization 4. Back pain status post spine surgery -Pain management -Supportive 5. Ventral hernia: -as above 6. Chronic gastritis -PPI -Diet, lifestyle optimization 7. Constipation: -Bowel optimization Thank you. Patient seen and examined in collaboration with Dr. Alistair Angel. Subjective 24 Hr Interval Summary Feels better. Continues to have abdominal tenderness but improved. Tolerated solid diet. No bowel movement. No fevers, chills, sob, congested cough, cp, palpitations, connor, dizziness, nausea, vomiting, diarrhea, dysuria. Exam/Review of Systems Vital Signs Vitals Vital Signs Date Temp Pulse Resp B/P (MAP) Pulse Ox O2 O2 Flow FiO2 Time Delivery Rate 02/09/19 98.0 72 18 127/80 100 08:06 (96) 02/09/19 Room Air 01:35 02/08/19 2.0 09:21 Intake and Output 02/08/19 02/08/19 02/09/19 1515:00 23:00 07:00 IntakeIntake Total 780 ml 240 ml OutputOutput Total 27 ml 30 ml BalanceBalance 753 ml 210 ml Exam Free Text/Dictation Constitutional: alert, oriented Psych: nl mood Head: normocephalic, atraumatic Eyes: nl conjunctiva, EOMI, nl lids, nl sclera ENMT: nl external ears & nose, nl lips & teeth, mucosa pink and moist Neck: supple, non-tender; No jvd Respiratory: normal air movement; No congested cough Cardiovascular: regular rate and rhythm Gastrointestinal: soft, distended (Minimal), tender (mid abdomen, la- incisional; incision sites dry without drainage/bruising/discoloration; RENATE drain with serosanguineous) No firm, No rebound or guarding Genitourinary - Female: nl external genitalia Musculoskeletal: nl extremities to inspection Extremities: normal pulses Neurological: nl mental status, nl speech, nl strength Skin: nl turgor; No rash or lesions Lymph: nl lymph nodes Results Result Diagram: 02/09/19 0532 02/09/19 0532 JEAN-CLAUDE BACK NP Feb 09, 2019 14:44
[2019-02-09] MEDS: HYDROCODONE/APAP (10/325) TAB PO PRN (14:45)
[2019-02-09] MEDS ORDERED: NA PHOSPHATE/BIPHOS 133 ML ENEMA PR PRN (15:00)
[2019-02-09] MEDS: BISACODYL 10 MG SUPP PR PRN (15:12)
[2019-02-09 16:27] VITALS: BP 136/67; PULSE 73; RESP 18
[2019-02-09] MEDS: ATORVASTATIN 10 MG TAB PO SCH (20:16)
[2019-02-09 20:19] VITALS: BP 122/72; PULSE 75; RESP 17
[2019-02-09] MEDS: LATANOPROST 0.005% 2.5 ML OPH BOTH EYES SCH (23:40)
[2019-02-09] MEDS: ZOLPIDEM 5 MG TAB PO SCH (23:41)
[2019-02-10 02:21] VITALS: BP 125/74; PULSE 74; RESP 18
[2019-02-10] MEDS: morphine 2 MG INJ IV PRN ×6 (03:15→23:54)
[2019-02-10 05:51] VITALS: PULSE 66; RESP 18
[2019-02-10 07:51] VITALS: BP 119/75; PULSE 76; RESP 16
[2019-02-10] MEDS: FOLIC ACID 0.4 MG TAB PO SCH (08:18)
[2019-02-10] MEDS: ROPINIROLE 1 MG TAB PO SCH ×2 (08:18→20:51)
[2019-02-10] MEDS: DOCUSATE SODIUM 100 MG CAP PO SCH ×2 (08:18→20:51)
[2019-02-10] MEDS: CHOLECALCIFEROL 1,000 UNIT TAB PO SCH (08:18)
[2019-02-10] MEDS: MULTIVITAMINS THERAPEUTIC TAB PO SCH (08:19)
[2019-02-10] MEDS: ASPIRIN (EC) 81 MG TAB PO SCH (08:19)
[2019-02-10] MEDS: METOPROLOL 50 MG TAB PO SCH ×2 (08:19→20:52)
[2019-02-10] MEDS: AMLODIPINE 2.5 MG TAB PO SCH (08:19)
--- NOTE | 2019-02-10 08:39 | PN ---
Date/Time of Note Date/Time of Note DATE: 02/10/19 TIME: 08:37 Assessment/Plan VTE Prophylaxis Risk score (from Nsg)>0 risk: 4 SCD applied (from Ns): Yes Pharmacological prophylaxis: LMWH Lines/Catheters IV Catheter Type (from Nrsg): Saline Lock Assessment/Plan Assessment/Plan 1. Post op hernia repair and cholecystectomy (path noted), constipated still problematic (did not tolerate fleets very well) 2. Slowly improving abd pain, rev with pt, "best to use oral meds" 3. Valvular ht dz 4. Lovenox added for dvt prophyl 5. Case management requested Result Diagram: 02/10/1951802/10/19518 Results 24hrs Laboratory Tests Test 02/10/19 05:19 White Blood Count 9.9 Red Blood Count 4.56 Hemoglobin 12.8 Hematocrit 39.9 Mean Corpuscular Volume 87.5 Mean Corpuscular Hemoglobin 28.1 L Mean Corpuscular Hemoglobin Concent 32.1 Red Cell Distribution Width 14.7 H Platelet Count 288 Mean Platelet Volume 9.4 Immature Granulocytes % 0.300 Neutrophils % 65.9 Lymphocytes % 24.5 Monocytes % 7.3 Eosinophils % 1.6 Basophils % 0.4 Nucleated Red Blood Cells % 0.0 Immature Granulocytes # 0.030 Neutrophils # 6.5 Lymphocytes # 2.4 Monocytes # 0.7 Eosinophils # 0.2 Basophils # 0.0 Nucleated Red Blood Cells # 0.0 Sodium Level 137 Potassium Level 4.1 Chloride Level 100 Carbon Dioxide Level 30 Anion Gap 7 Blood Urea Nitrogen 15 Creatinine 0.89 Est Glomerular Filtrat Rate mL/min > 60 Glucose Level 96 Calcium Level 9.5 Phosphorus Level 4.3 Magnesium Level 2.1 Subjective 24 Hr Interval Summary Respiratory: No cough, No pleuritic pain, No shortness of breath Cardiovascular: No chest pain, No lightheadedness Gastrointestinal: other (constipated, small (very) with supposit, less abd pain); No nausea, No vomiting Genitourinary: no complaints Musculoskeletal: no complaints Skin: no complaints Exam/Review of Systems Exam Vitals Vital Signs Date Temp Pulse Resp B/P (MAP) Pulse Ox O2 O2 Flow FiO2 Time Delivery Rate 02/10/19 98.5 76 16 119/75 98 07:51 (90) 02/10/19 Room Air 05:51 02/08/19 2.0 09:21 Intake and Output 02/09/19 02/09/19 02/10/19 1515:00 23:00 07:00 IntakeIntake Total 760 ml 610 ml 268 ml OutputOutput Total 30 ml 30 ml BalanceBalance 760 ml 580 ml 238 ml Neck: No jvd Respiratory: clear to auscultation Cardiovascular: regular rate and rhythm Gastrointestinal: distended (mild gen tend) Extremities: No edema, No tenderness Results Results 24hrs Laboratory Tests Test 02/10/19 05:19 White Blood Count 9.9 Red Blood Count 4.56 Hemoglobin 12.8 Hematocrit 39.9 Mean Corpuscular Volume 87.5 Mean Corpuscular Hemoglobin 28.1 L Mean Corpuscular Hemoglobin Concent 32.1 Red Cell Distribution Width 14.7 H Platelet Count 288 Mean Platelet Volume 9.4 Immature Granulocytes % 0.300 Neutrophils % 65.9 Lymphocytes % 24.5 Monocytes % 7.3 Eosinophils % 1.6 Basophils % 0.4 Nucleated Red Blood Cells % 0.0 Immature Granulocytes # 0.030 Neutrophils # 6.5 Lymphocytes # 2.4 Monocytes # 0.7 Eosinophils # 0.2 Basophils # 0.0 Nucleated Red Blood Cells # 0.0 Sodium Level 137 Potassium Level 4.1 Chloride Level 100 Carbon Dioxide Level 30 Anion Gap 7 Blood Urea Nitrogen 15 Creatinine 0.89 Est Glomerular Filtrat Rate mL/min > 60 Glucose Level 96 Calcium Level 9.5 Phosphorus Level 4.3 Magnesium Level 2.1 Medications Medication Current Medications Amlodipine Besylate (Norvasc) 2.5 mg DAILY PO Last administered on 02/10/19at 08:19; Admin Dose 2.5 MG; Start 02/02/19 at 09:00 Aspirin (Halfprin) 81 mg DAILY PO Last administered on 02/10/19at 08:19; Admin Dose 81 MG; Start 02/02/19 at 09:00 Atorvastatin Calcium (Lipitor) 10 mg QHS PO Last administered on 02/09/19at 20:16; Admin Dose 10 MG; Start 02/01/19 at 21:00 Cholecalciferol (Vitamin D) 5,000 unit DAILY PO Last administered on 02/10/19at 08:18; Admin Dose 5,000 UNIT; Start 02/02/19 at 09:00 Diazepam (Valium) 10 mg Q6 PRN PO ANXIETY; Start 02/01/19 at 11:00 Docusate Sodium (Colace) 100 mg BID PO Last administered on 02/10/19 08:18; Admin Dose 100 MG; Start 02/01/19 at 21:00 Metoprolol Tartrate (Lopressor) 50 mg BID PO Last administered on 02/10/19 08:19; Admin Dose 50 MG; Start 02/01/19 at 21:00 Ropinirole HCl (Requip) 1 mg BID PO Last administered on 02/10/19 08:18; Admin Dose 1 MG; Start 02/01/19 at 21:00 Zolpidem Tartrate (Ambien) 5 mg HS PO Last administered on 02/09/19 23:41; Admin Dose 5 MG; Start 02/01/19 at 21:00 Folic Acid (Folic Acid) 0.8 mg DAILY PO Last administered on 02/10/19 08:18; Admin Dose 0.8 MG; Start 02/02/19 at 09:00 Multivitamins Therapeutic (Theragran) 1 tab DAILY PO Last administered on 02/10/19 08:19; Admin Dose 1 TAB; Start 02/02/19 at 09:00 Latanoprost (Xalatan) 1 drop QHS BOTH EYES Last administered on 02/09/19 23:40; Admin Dose 1 DROP; Start 02/01/19 at 21:00 Ondansetron HCl (Zofran Inj) 4 mg Q6H PRN IV NAUSEA AND/OR VOMITING; Start 02/02/19 at 11:00 Acetaminophen/ Hydrocodone Bitart ([place] (10/325)) 1 tab Q4 PRN PO PAIN LEVEL 4-6 Last administered on 02/09/19at 14:45; Admin Dose 1 TAB; Start 02/08/19 at 08:30 Morphine Sulfate (morphine) 4 mg Q4 PRN IV SEVERE PAIN LEVEL 7-10 Last administered on 02/10/19at 07:33; Admin Dose 4 MG; Start 02/08/19 at 08:30 Phenol (Cepastat Lozenge) 1 lozenge Q4H PRN MT DRY MOUTH Last administered on 02/09/19at 11:46; Admin Dose 1 LOZENGE; Start 02/09/19 at 09:00 Bisacodyl (Dulcolax Supp) 10 mg DAILY PRN [place] CONSTIPATION Last administered on 02/09/19at 15:12; Admin Dose 10 MG; Start 02/09/19 at 15:00 HUMA CASTELLANO MD Feb 10, 2019 08:39
[2019-02-10] MEDS ORDERED: ENOXAPARIN 40 MG/0.4 ML SYG SC SCH (09:00)
--- NOTE | 2019-02-10 11:00 | PN ---
Date/Time of Note Date/Time of Note DATE: 02/10/19 TIME: 10:59 Assessment/Plan Lines/Catheters IV Catheter Type (from Nrsg): Saline Lock Assessment/Plan Chief Complaint/Hosp Course 1. Abdominal pain of unknown etiology. DDx: referred spinal pain vs musculoskeletal vs symptomatic umbilical hernia vs. ? spigelian hernias (on CT there maybe defect at those sites per Dr. Angel's read) vs. mesenteric panniculitis +/- gastritis vs GB (HIDA is negative, LFTs nl, no GB wall thickening). HIDA c CCK 76% EF (?hyperdynamic) and patient had significant abdominal pain with injection of CCK. MRA with occluded TED, o/w unimpressive. Possible biliary dyskinesia with gallbladder EF of 76%, ventral incisional hernia, bilateral inguinal hernias, thrombosed TED, right lower quadrant adhesi ons, abnormal liver color status post 3 port laparoscopic cholecystectomy, ventral incisional hernia repair 02/07/2019 -Continue IS -Continue to ambulate -ice pack to abdominal wall -advance diet as tolerated -Abdominal binder -Pain management -RENATE drain - slightly increased output today> continue drain and if minimal output will DC tomorrow -dc planning ok from surgical standpoint 2. Hypertension -Medical management 3. Anxiety -Psychiatric optimization 4. Back pain status post spine surgery -Pain management -Supportive 5. Ventral hernia: -as above 6. Chronic gastritis -PPI -Diet, lifestyle optimization 7. Constipation: -Bowel optimization> will add senna Thank you. Patient seen and examined in collaboration with Dr. Alistair Angel. Subjective 24 Hr Interval Summary Feels better. Still some abdominal soreness. No fevers, chills, sob, congested cough, cp, palpitations, connor, dizziness, n/v/d/dysuria. Small bm Exam/Review of Systems Vital Signs Vitals Vital Signs Date Temp Pulse Resp B/P (MAP) Pulse Ox O2 O2 Flow FiO2 Time Delivery Rate 02/10/19 98.5 76 16 119/75 98 07:51 (90) 02/10/19 Room Air 05:51 02/08/19 2.0 09:21 Intake and Output 02/09/19 02/09/19 02/10/19 1515:00 23:00 07:00 IntakeIntake Total 760 ml 610 ml 268 ml OutputOutput Total 30 ml 30 ml BalanceBalance 760 ml 580 ml 238 ml Exam Free Text/Dictation Constitutional: alert, oriented Psych: nl mood Head: normocephalic, atraumatic Eyes: nl conjunctiva, EOMI, nl lids, nl sclera ENMT: nl external ears & nose, nl lips & teeth, mucosa pink and moist Neck: supple, non-tender; No jvd Respiratory: normal air movement; No congested cough Cardiovascular: regular rate and rhythm Gastrointestinal: soft, distended (Minimal), tender- improved (mid abdomen, la-incisional; incision sites dry without drainage/bruising/discoloration; RENATE drain with serosanguineous) No firm, No rebound or guarding Genitourinary - Female: nl external genitalia Musculoskeletal: nl extremities to inspection Extremities: normal pulses Neurological: nl mental status, nl speech, nl strength Skin: nl turgor; No rash or lesions Lymph: nl lymph nodes Results Result Diagram: 02/10/19 0519 02/10/19 0519 JEAN-CLAUDE BACK NP Feb 10, 2019 11:00
[2019-02-10] MEDS ORDERED: SENNA TAB PO PRN (11:30)
[2019-02-10 14:00] VITALS: BP 116/75; PULSE 78; RESP 16
[2019-02-10 19:51] VITALS: BP 121/67; PULSE 86; RESP 16
[2019-02-10] MEDS: ZOLPIDEM 5 MG TAB PO SCH (20:51)
[2019-02-10] MEDS: ATORVASTATIN 10 MG TAB PO SCH (20:51)
[2019-02-10] MEDS: LATANOPROST 0.005% 2.5 ML OPH BOTH EYES SCH (20:51)
[2019-02-11] MEDS: CEPASTAT LOZENGE MT PRN
[2019-02-11 02:18] VITALS: BP 144/76; PULSE 80; RESP 16
[2019-02-11] MEDS: morphine 2 MG INJ IV PRN ×5 (04:04→20:20)
[2019-02-11 07:47] VITALS: BP 161/74; PULSE 80; RESP 16
--- NOTE | 2019-02-11 08:40 | PN ---
Date/Time of Note Date/Time of Note DATE: 02/11/19 TIME: 08:37 Assessment/Plan VTE Prophylaxis Risk score (from Ns)>0 risk: 3 SCD applied (from Ns): Yes Pharmacological prophylaxis: NA/contraindicated (gi bleeding) Pharm contraindication: bleeding Lines/Catheters IV Catheter Type (from Nrsg): Saline Lock Assessment/Plan Assessment/Plan 1. Post op ines and hernia repair 2. Localized drain site pain, ? cause, await surgery follow up 3. ? Rectal bleeding, observe, dc lovenox 4. Valvular ht disease 5. Cont to mobilize Result Diagram: 02/10/1951802/10/19518 Subjective 24 Hr Interval Summary Respiratory: No cough, No shortness of breath Cardiovascular: No chest pain, No lightheadedness, No orthopenea, No p alpitations Genitourinary: other (onset if pain after drain was emptied at drain site and pt noted some blood in stool when had small bm) Exam/Review of Systems Exam Vitals Vital Signs Date Temp Pulse Resp B/P (MAP) Pulse Ox O2 O2 Flow FiO2 Time Delivery Rate 02/11/19 98.5 80 16 161/74 99 07:47 (103) 02/10/19 Room Air 05:51 02/08/19 2.0 09:21 Intake and Output 02/10/19 02/10/19 02/11/19 1515:00 23:00 07:00 IntakeIntake Total 800 ml 960 ml OutputOutput Total 30 ml 25 ml BalanceBalance 800 ml 930 ml -25 ml Neck: No jvd Respiratory: clear to auscultation Cardiovascular: regular rate and rhythm Gastrointestinal: tender (at drain site) Extremities: No edema, No tenderness Medications Medication Current Medications Amlodipine Besylate (Norvasc) 2.5 mg DAILY PO Last administered on 02/10/19at 08:19; Admin Dose 2.5 MG; Start 02/02/19 at 09:00 Aspirin (Halfprin) 81 mg DAILY PO Last administered on 02/10/19at 08:19; Admin Dose 81 MG; Start 02/02/19 at 09:00 Atorvastatin Calcium (Lipitor) 10 mg QHS PO Last administered on 02/10/19at 20:51; Admin Dose 10 MG; Start 02/01/19 at 21:00 Cholecalciferol (Vitamin D) 5,000 unit DAILY PO Last administered on 02/10/19 08:18; Admin Dose 5,000 UNIT; Start 02/02/19 at 09:00 Diazepam (Valium) 10 mg Q6 PRN PO ANXIETY; Start 02/01/19 at 11:00 Docusate Sodium (Colace) 100 mg BID PO Last administered on 02/10/19 20:51; Admin Dose 100 MG; Start 02/01/19 at 21:00 Metoprolol Tartrate (Lopressor) 50 mg BID PO Last administered on 02/10/19 20:52; Admin Dose 50 MG; Start 02/01/19 at 21:00 Ropinirole HCl (Requip) 1 mg BID PO Last administered on 02/10/19 20:51; Admin Dose 1 MG; Start 02/01/19 at 21:00 Zolpidem Tartrate (Ambien) 5 mg HS PO Last administered on 02/10/19 20:51; Admin Dose 5 MG; Start 02/01/19 at 21:00 Folic Acid (Folic Acid) 0.8 mg DAILY PO Last administered on 02/10/19 08:18; Admin Dose 0.8 MG; Start 02/02/19 at 09:00 Multivitamins Therapeutic (Theragran) 1 tab DAILY PO Last administered on 02/10/19 08:19; Admin Dose 1 TAB; Start 02/02/19 at 09:00 Latanoprost (Xalatan) 1 drop QHS BOTH EYES Last administered on 02/10/19 20:51; Admin Dose 1 DROP; Start 02/01/19 at 21:00 Ondansetron HCl (Zofran Inj) 4 mg Q6H PRN IV NAUSEA AND/OR VOMITING; Start 02/02/19 at 11:00 Acetaminophen/ Hydrocodone Bitart ([place] (10/325)) 1 tab Q4 PRN PO PAIN LEVEL 4-6 Last administered on 02/09/19 14:45; Admin Dose 1 TAB; Start 02/08/19 at 08:30 Morphine Sulfate (morphine) 4 mg Q4 PRN IV SEVERE PAIN LEVEL 7-10 Last administered on 02/11/19 07:50; Admin Dose 4 MG; Start 02/08/19 at 08:30 Phenol (Cepastat Lozenge) 1 lozenge Q4H PRN [place] DRY MOUTH Last administered on 02/11/19 00:00; Admin Dose 1 LOZENGE; Start 02/09/19 at 09:00 Bisacodyl (Dulcolax Supp) [address] CONSTIPATION Last administered on 02/09/19 15:12; Admin Dose 10 MG; Start 02/09/19 at 15:00 Senna (Senokot) 1 tab BID PRN PO CONSTIPATION Last administered on 02/10/19at 11:37; Admin Dose 1 TAB; Start 02/10/19 at 11:30 HUMA CASTELLANO MD Feb 11, 2019 08:40
[2019-02-11] MEDS: DOCUSATE SODIUM 100 MG CAP PO SCH ×2 (08:51→20:31)
[2019-02-11] MEDS: MULTIVITAMINS THERAPEUTIC TAB PO SCH (08:51)
[2019-02-11] MEDS: ASPIRIN (EC) 81 MG TAB PO SCH (08:52)
[2019-02-11] MEDS: FOLIC ACID 0.4 MG TAB PO SCH (08:52)
[2019-02-11] MEDS: ROPINIROLE 1 MG TAB PO SCH ×2 (08:52→20:30)
[2019-02-11] MEDS: AMLODIPINE 2.5 MG TAB PO SCH (08:52)
[2019-02-11] MEDS: METOPROLOL 50 MG TAB PO SCH ×2 (08:52→20:31)
[2019-02-11] MEDS: CHOLECALCIFEROL 1,000 UNIT TAB PO SCH (08:53)
--- NOTE | 2019-02-11 10:42 | PN ---
Date/Time of Note Date/Time of Note DATE: 02/11/19 TIME: 10:37 Assessment/Plan Lines/Catheters IV Catheter Type (from Nrsg): Saline Lock Assessment/Plan Chief Complaint/Hosp Course 1. Abdominal pain of unknown etiology. DDx: referred spinal pain vs musculoskeletal vs symptomatic umbilical hernia vs. ? spigelian hernias (on CT there maybe defect at those sites per Dr. Angel's read) vs. mesenteric panniculitis +/- gastritis vs GB (HIDA is negative, LFTs nl, no GB wall thickening). HIDA c CCK 76% EF (?hyperdynamic) and patient had significant abdominal pain with injection of CCK. MRA with occluded TED, o/w unimpressive. Possible biliary dyskinesia with gallbladder EF of 76%, ventral incisional hernia, bilateral inguinal hernias, thrombosed TED, right lower quadrant adhesi ons, abnormal liver color status post 3 port laparoscopic cholecystectomy, ventral incisional hernia repair 02/07/2019 -Continue IS -Continue to ambulate -ice pack to abdominal wall -advance diet as tolerated -Abdominal binder -Pain management -JUANA drain - still with mod output (improved), c/o pain with bulb suction; will await US results 2. Constipation and reports of bloody stools: ? 2/2 constipation and hemorrhoids (pt w hx of hemorrhoids); no active bleeding at present -monitor hh -agree with holding anticoags -Bowel optimization> will change senna to routine in addition to colace -increase fiber/fluids 3. Anxiety -Psychiatric optimization 4. Back pain status post spine surgery -Pain management -Supportive 5. Ventral hernia: -as above 6. Chronic gastritis -PPI -Diet, lifestyle optimization 7. Hypertension -Medical management Thank you. Patient seen and examined in collaboration with Dr. Alistair Angel. Subjective 24 Hr Interval Summary Complaints of severe pain after juana bulb was compressed. Also noted some bloody stools. No fevers, chills, sob, congested cough, cp, palpitations, connor, dizziness, n/v/d/dysuria. Exam/Review of Systems Vital Signs Vitals Vital Signs Date Temp Pulse Resp B/P (MAP) Pulse Ox O2 O2 Flow FiO2 Time Delivery Rate 02/11/19 98.5 80 16 161/74 99 07:47 (103) 02/10/19 Room Air 05:51 02/08/19 2.0 09:21 Intake and Output 02/10/19 02/10/19 02/11/19 1515:00 23:00 07:00 IntakeIntake Total 800 ml 960 ml OutputOutput Total 30 ml 25 ml BalanceBalance 800 ml 930 ml -25 ml Exam Free Text/Dictation Constitutional: alert, oriented Psych: nl mood Head: normocephalic, atraumatic Eyes: nl conjunctiva, EOMI, nl lids, nl sclera ENMT: nl external ears & nose, nl lips & teeth, mucosa pink and moist Neck: supple, non-tender; No jvd Respiratory: normal air movement; No congested cough Cardiovascular: regular rate and rhythm Gastrointestinal: soft, distended (Minimal), tender- improved (mid abdomen, la-incisional; incision sites dry without drainage/bruising/discoloration; JUANA drain with serosanguineous) No firm, No rebound or guarding Genitourinary - Female: nl external genitalia Musculoskeletal: nl extremities to inspection Extremities: normal pulses Neurological: nl mental status, nl speech, nl strength Skin: nl turgor; No rash or lesions Lymph: nl lymph nodes Results Result Diagram: 02/11/19 0858 02/11/19 0858 JEAN-CLAUDE BACK NP Feb 11, 2019 10:42
[2019-02-11] MEDS: SENNA TAB PO SCH ×2 (12:31→20:31)
[2019-02-11 14:21] VITALS: BP 108/67; PULSE 73; RESP 16
[2019-02-11 19:51] VITALS: BP 140/69; PULSE 93; RESP 18
[2019-02-11] MEDS: ATORVASTATIN 10 MG TAB PO SCH (20:30)
[2019-02-11] MEDS: ZOLPIDEM 5 MG TAB PO SCH (23:20)
[2019-02-11] MEDS: LATANOPROST 0.005% 2.5 ML OPH BOTH EYES SCH (23:22)
[2019-02-12] MEDS: morphine 2 MG INJ IV PRN ×6 (00:31→20:40)
[2019-02-12 02:26] VITALS: BP 127/77; PULSE 76; RESP 18
[2019-02-12 07:28] VITALS: BP 114/78; PULSE 85; RESP 16
[2019-02-12] MEDS: SENNA TAB PO SCH ×2 (07:52→20:39)
[2019-02-12] MEDS: AMLODIPINE 2.5 MG TAB PO SCH (07:52)
[2019-02-12] MEDS: ROPINIROLE 1 MG TAB PO SCH ×2 (07:52→20:38)
[2019-02-12] MEDS: FOLIC ACID 0.4 MG TAB PO SCH (07:52)
[2019-02-12] MEDS: ASPIRIN (EC) 81 MG TAB PO SCH (07:52)
[2019-02-12] MEDS: DOCUSATE SODIUM 100 MG CAP PO SCH ×2 (07:53→20:39)
[2019-02-12] MEDS: MULTIVITAMINS THERAPEUTIC TAB PO SCH (07:53)
[2019-02-12] MEDS: CHOLECALCIFEROL 1,000 UNIT TAB PO SCH (07:53)
[2019-02-12] MEDS: METOPROLOL 50 MG TAB PO SCH ×2 (07:53→20:39)
--- NOTE | 2019-02-12 13:25 | PN ---
Date/Time of Note Date/Time of Note DATE: 02/12/19 TIME: 13:24 Assessment/Plan Lines/Catheters IV Catheter Type (from Nrsg): Saline Lock Assessment/Plan Chief Complaint/Hosp Course 1. Abdominal pain of unknown etiology. DDx: referred spinal pain vs musculoskeletal vs symptomatic umbilical hernia vs. ? spigelian hernias (on CT there maybe defect at those sites per Dr. Angel's read) vs. mesenteric panniculitis +/- gastritis vs GB (HIDA is negative, LFTs nl, no GB wall thickening). HIDA c CCK 76% EF (?hyperdynamic) and patient had significant abdominal pain with injection of CCK. MRA with occluded TED, o/w unimpressive. Possible biliary dyskinesia with gallbladder EF of 76%, ventral incisional hernia, bilateral inguinal hernias, thrombosed TED, right lower quadrant adhesi ons, abnormal liver color status post 3 port laparoscopic cholecystectomy, ventral incisional hernia repair 02/07/2019; US noted possible hematoma/seroma (no infectious sx,should resolve) -Continue IS -Continue to ambulate -ice pack to abdominal wall -advance diet as tolerated -Abdominal binder -Pain management -RENATE drain - will dc today -dc planning ok from surgical standpoint 2. Constipation and reports of bloody stools: ? 2/2 constipation and hemorrhoids (pt w hx of hemorrhoids); no active bleeding at present -monitor hh -agree with holding anticoags -Bowel optimization> senna routine in addition to colace, miralax added -increase fiber/fluids 3. Anxiety -Psychiatric optimization 4. Back pain status post spine surgery -Pain management -Supportive 5. Ventral hernia: -as above 6. Chronic gastritis -PPI -Diet, lifestyle optimization 7. Hypertension -Medical management Thank you. Patient seen and examined in collaboration with Dr. Alistair Angel. Subjective 24 Hr Interval Summary Feels well. No acute pain. No fevers, chills, sob, congested cough, cp, palpitations, connor, dizziness, n/v/d/dysuria. Exam/Review of Systems Vital Signs Vitals Vital Signs Date Temp Pulse Resp B/P (MAP) Pulse Ox O2 O2 Flow FiO2 Time Delivery Rate 02/12/19 98.6 96 18 146/86 100 19:37 (106) 02/12/19 Room Air 14:39 02/08/19 2.0 09:21 Intake and Output 02/11/19 02/11/19 02/12/19 1515:00 23:00 07:00 IntakeIntake Total 920 ml 480 ml OutputOutput Total 20 ml BalanceBalance 920 ml 480 ml -20 ml Exam Free Text/Dictation Free Text/Dictation Constitutional: alert, oriented Psych: nl mood Head: normocephalic, atraumatic Eyes: nl conjunctiva, EOMI, nl lids, nl sclera ENMT: nl external ears & nose, nl lips & teeth, mucosa pink and moist Neck: supple, non-tender; No jvd Respiratory: normal air movement; No congested cough Cardiovascular: regular rate and rhythm Gastrointestinal: soft, distended (Minimal), tender- improved (mid abdomen, la-incisional; incision sites dry without drainage/bruising/discoloration; RENATE drain with serosanguineous) No firm, No rebound or guarding Genitourinary - Female: nl external genitalia Musculoskeletal: nl extremities to inspection Extremities: normal pulses Neurological: nl mental status, nl speech, nl strength Skin: nl turgor; No rash or lesions Lymph: nl lymph nodes Results Result Diagram: 02/12/19 0525 02/12/19 0525 JEAN-CLAUDE BACK NP Feb 12, 2019 13:25
--- NOTE | 2019-02-12 13:42 | PN ---
Date/Time of Note Date/Time of Note DATE: 02/12/19 TIME: 13:32 Subjective Patient endorses constipation. Pain is better overall but continues to have pain at surgical sites. No fevers, chills, nausea, vomiting, diarrhea, chest pain, sob, cough. Objective Vitals Vital Signs Date Temp Pulse Resp B/P (MAP) Pulse Ox O2 O2 Flow FiO2 Time Delivery Rate 02/12/19 98.4 85 16 114/78 100 Room Air 07:28 (90) 02/08/19 2.0 09:21 Intake and Output 02/11/19 02/11/19 02/12/19 1515:00 23:00 07:00 IntakeIntake Total 920 ml 480 ml OutputOutput Total 20 ml BalanceBalance 920 ml 480 ml -20 ml Gen-NAD, sitting comfortably in chair and watching TV HEENT-op clear, mmm CV-RRR, nml s1/s2, no m/r/g Pulm-CTAB, no w/r/r Abdomen-moderate tenderness on palpation around surgical incision sites. Surgical sites clean and dry. +BS Ext-no c/c/e of extremities Results Result Diagram: 02/12/1952402/12/19524 Medications Medications Current Medications Amlodipine Besylate (Norvasc) 2.5 mg DAILY PO Last administered on 02/12/19at 07:52; Admin Dose 2.5 MG; Start 02/02/19 at 09:00 Aspirin (Halfprin) 81 mg DAILY PO Last administered on 02/12/19at 07:52; Admin Dose 81 MG; Start 02/02/19 at 09:00 Atorvastatin Calcium (Lipitor) 10 mg QHS PO Last administered on 02/11/19at 20:30; Admin Dose 10 MG; Start 02/01/19 at 21:00 Cholecalciferol (Vitamin D) 5,000 unit DAILY PO Last administered on 02/12/19at 07:53; Admin Dose 5,000 UNIT; Start 02/02/19 at 09:00 Diazepam (Valium) 10 mg Q6 PRN PO ANXIETY; Start 02/01/19 at 11:00 Docusate Sodium (Colace) 100 mg BID PO Last administered on 02/12/19at 07:53; Admin Dose 100 MG; Start 02/01/19 at 21:00 Metoprolol Tartrate (Lopressor) 50 mg BID PO Last administered on 02/12/19 07:53; Admin Dose 50 MG; Start 02/01/19 at 21:00 Ropinirole HCl (Requip) 1 mg BID PO Last administered on 02/12/19 07:52; Admin Dose 1 MG; Start 02/01/19 at 21:00 Zolpidem Tartrate (Ambien) 5 mg HS PO Last administered on 02/11/19 23:20; Admin Dose 5 MG; Start 02/01/19 at 21:00 Folic Acid (Folic Acid) 0.8 mg DAILY PO Last administered on 02/12/19 07:52; Admin Dose 0.8 MG; Start 02/02/19 at 09:00 Multivitamins Therapeutic (Theragran) 1 tab DAILY PO Last administered on 01/25 07:53; Admin Dose 1 TAB; Start 02/02/19 at 09:00 Latanoprost (Xalatan) 1 drop QHS BOTH EYES Last administered on 02/11/19 23:22; Admin Dose 1 DROP; Start 02/01/19 at 21:00 Ondansetron HCl (Zofran Inj) 4 mg Q6H PRN IV NAUSEA AND/OR VOMITING; Start 02/02/19 at 11:00 Acetaminophen/ Hydrocodone Bitart ([place] (10/325)) 1 tab Q4 PRN PO PAIN LEVEL 4-6 Last administered on 02/09/19 14:45; Admin Dose 1 TAB; Start 02/08/19 at 08:30 Morphine Sulfate (morphine) 4 mg Q4 PRN IV SEVERE PAIN LEVEL 7-10 Last administered on 02/12/19 12:17; Admin Dose 4 MG; Start 02/08/19 at 08:30 Phenol (Cepastat Lozenge) 1 lozenge Q4H PRN [place] DRY MOUTH Last administered on 02/11/19 00:00; Admin Dose 1 LOZENGE; Start 02/09/19 at 09:00 Bisacodyl (Dulcolax Supp) 10 mg DAILY PRN [place] CONSTIPATION Last administered on 02/09/19 15:12; Admin Dose 10 MG; Start 02/09/19 at 15:00 Senna (Senokot) 1 tab BID PO Last administered on 7/20/19at 07:52; Admin Dose 1 TAB; Start 02/11/19 at 11:00 VTE Prophylaxis Risk score (from Ns)>0 risk: 4 SCD applied (from Ns): Yes VTE Confirmed-Overlap Tx Rcvd Pt Rcvd Overlap Therapy: No Reason for no Overlap Therapy: Contraindicated Lines/Catheters IV Catheter Type: Peripheral IV Nash in Place: No Assessment/Plan Hospital Course 68 y/o female pmh HTN, HLD, chronic gastritis, rheumatic heart disease s/p AVR, MVR, lumbosacral disc disease, chronic insomnia, RLS, mild chronic diastolic dysfunction admitted 02/01/2019 with abd pain, uncertain etiology. Now s/p cholecystectomy and abdominal ventral hernia repair. RENATE drain in place. Assessment/Plan #abdominal pain-improved s/p cholecystectomy and ventral hernia repair -appreciate surgery care and management including drain management -judicious pain management #constipation -will add daily miralax. #HTN -amlodipine, mtp #GERD/chronic gastritis/esophagitis -will add back PPI, protonix 40mg po qday #AVR/MVR -ASA #HLD -atorva #insomnia -ambien #RLS -requip #anxiety -valuum prn COY FISCHER MD Feb 12, 2019 13:42
[2019-02-12 14:39] VITALS: BP 121/79; PULSE 89; RESP 14
[2019-02-12] MEDS: POLYETHYLENE GLYCOL 17 GM PACKET PO SCH (14:41)
[2019-02-12 19:37] VITALS: BP 146/86; PULSE 96; RESP 18
[2019-02-12] MEDS: ATORVASTATIN 10 MG TAB PO SCH (20:39)
[2019-02-12] MEDS: ZOLPIDEM 5 MG TAB PO SCH (23:10)
[2019-02-12] MEDS: LATANOPROST 0.005% 2.5 ML OPH BOTH EYES SCH (23:10)
[2019-02-13] MEDS: morphine 2 MG INJ IV PRN ×4 (00:36→13:12)
[2019-02-13 01:55] VITALS: BP 109/68; PULSE 74; RESP 20
[2019-02-13] MEDS: PANTOPRAZOLE (EC) 40 MG TAB PO SCH (05:34)
[2019-02-13] MEDS: CEPASTAT LOZENGE MT PRN (08:53)
[2019-02-13] MEDS: POLYETHYLENE GLYCOL 17 GM PACKET PO SCH (08:55)
[2019-02-13] MEDS: ROPINIROLE 1 MG TAB PO SCH ×2 (08:55→21:04)
[2019-02-13] MEDS: DOCUSATE SODIUM 100 MG CAP PO SCH ×2 (08:55→21:04)
[2019-02-13] MEDS: SENNA TAB PO SCH ×2 (08:55→21:04)
[2019-02-13] MEDS: FOLIC ACID 0.4 MG TAB PO SCH (08:55)
[2019-02-13] MEDS: CHOLECALCIFEROL 1,000 UNIT TAB PO SCH (08:55)
[2019-02-13] MEDS: AMLODIPINE 2.5 MG TAB PO SCH (08:56)
[2019-02-13] MEDS: METOPROLOL 50 MG TAB PO SCH ×2 (08:56→21:00)
[2019-02-13] MEDS: MULTIVITAMINS THERAPEUTIC TAB PO SCH (08:56)
[2019-02-13] MEDS: ASPIRIN (EC) 81 MG TAB PO SCH (08:57)
--- NOTE | 2019-02-13 11:57 | PN ---
Date/Time of Note Date/Time of Note DATE: 02/13/19 TIME: 11:53 Assessment/Plan Lines/Catheters IV Catheter Type (from Nrsg): Peripheral IV Nash in Place (from Nrsg): No Assessment/Plan Chief Complaint/Hosp Course 1. Abdominal pain of unknown etiology. DDx: referred spinal pain vs musculoskeletal vs symptomatic umbilical hernia vs. ? spigelian hernias (on CT t here maybe defect at those sites per Dr. Angel's read) vs. mesenteric panniculitis +/- gastritis vs GB (HIDA is negative, LFTs nl, no GB wall thickening). HIDA c CCK 76% EF (?hyperdynamic) and patient had significant abdominal pain with injection of CCK. MRA with occluded TED, o/w unimpressive. Possible biliary dyskinesia with gallbladder EF of 76%, ventral incisional hernia, bilateral inguinal hernias, thrombosed TED, right lower quadrant adhesions, abnormal liver color status post 3 port laparoscopic cholecystectomy, ventral incisional hernia repair 02/07/2019; sp juana drain dc; US noted possible hematoma/seroma (no infectious sx, should resolve without surgical intervention) -Continue IS -Continue to ambulate -ice pack to abdominal wall, especially periumbilical -diet as tolerated -Abdominal binder -Pain management -dc ok from surgical standpoint with f/u in office in 2 weeks. 2. Constipation and reports of bloody stools: ? 2/2 constipation and hemorrhoids (pt w hx of hemorrhoids); no active bleeding at present; had multiple bowel movements last night -monitor hh -agree with holding anticoags -Bowel optimization> senna routine in addition to colace, miralax -increase fiber/fluids 3. Anxiety -Psychiatric optimization 4. Back pain status post spine surgery -Pain management -Supportive 5. Ventral hernia: -as above 6. Chronic gastritis -PPI -Diet, lifestyle optimization 7. Hypertension -Medical management Thank you. Patient seen and examined in collaboration with Dr. Alistair Angel. Subjective 24 Hr Interval Summary Had multiple bowel movement yesterday, which she described as hard. Tolerating diet. Improved discomfort from abdomen. No fevers, chills, sob, congested cough, cp, palpitations, connor, dizziness, n/v/d/dysuria. Exam/Review of Systems Vital Signs Vitals Vital Signs Date Temp Pulse Resp B/P (MAP) Pulse Ox O2 O2 Flow FiO2 Time Delivery Rate 02/13/19 98.2 74 20 109/68 100 01:55 (82) 02/12/19 Room Air 14:39 Intake and Output 02/12/19 02/12/19 02/13/19 1515:00 23:00 07:00 IntakeIntake Total 300 ml 840 ml OutputOutput Total 10 ml BalanceBalance 290 ml 840 ml Exam Free Text/Dictation Constitutional: alert, oriented Psych: nl mood Head: normocephalic, atraumatic Eyes: nl conjunctiva, EOMI, nl lids, nl sclera ENMT: nl external ears & nose, nl lips & teeth, mucosa pink and moist Neck: supple, non-tender; No jvd Respiratory: normal air movement; No congested cough Cardiovascular: regular rate and rhythm Gastrointestinal: soft, distended (Minimal), tender periumbilical- min; incision sites dry without drainage/bruising/discoloration) No firm, No rebound or guarding Genitourinary - Female: nl external genitalia Musculoskeletal: nl extremities to inspection Extremities: normal pulses Neurological: nl mental status, nl speech, nl strength Skin: nl turgor; No rash or lesions Lymph: nl lymph nodes Results Result Diagram: 02/13/19 0545 02/13/19 0545 JEAN-CLAUDE BACK NP Feb 13, 2019 11:56
--- NOTE | 2019-02-13 12:11 | PN ---
Date/Time of Note Date/Time of Note DATE: 02/13/19 TIME: 12:08 Subjective Drain out. Feeling better today in regards to abdominal pain but still using IV pain medications frequently. Denies fevers, chills, nausea, vomiting, diarrhea, chest pain, sob, cough. Had 3 hard BM yesterday. Took miralax today as well. Objective Vitals Vital Signs Date Temp Pulse Resp B/P (MAP) Pulse Ox O2 O2 Flow FiO2 Time Delivery Rate 02/13/19 98.2 74 20 109/68 100 01:55 (82) 02/12/19 Room Air 14:39 Intake and Output 02/12/19 02/12/19 02/13/19 1515:00 23:00 07:00 IntakeIntake Total 300 ml 840 ml OutputOutput Total 10 ml BalanceBalance 290 ml 840 ml Gen-NAD, sitting comfortably in chair and watching TV HEENT-op clear, mmm CV-RRR, nml s1/s2, no m/r/g Pulm-CTAB, no w/r/r Abdomen-mild tenderness on palpation around surgical incision sites. Surgical sites clean and dry. +BS Ext-no c/c/e of extremities Results Result Diagram: 02/13/19 0545 02/13/19 0545 Medications Medications Current Medications Amlodipine Besylate (Norvasc) 2.5 mg DAILY PO Last administered on 02/13/19at 08:56; Admin Dose 2.5 MG; Start 02/02/19 at 09:00 Aspirin (Halfprin) 81 mg DAILY PO Last administered on 02/13/19at 08:57; Admin Dose 81 MG; Start 02/02/19 at 09:00 Atorvastatin Calcium (Lipitor) 10 mg QHS PO Last administered on 02/12/19at 20:39; Admin Dose 10 MG; Start 02/01/19 at 21:00 Cholecalciferol (Vitamin D) 5,000 unit DAILY PO Last administered on 02/13/19at 08:55; Admin Dose 5,000 UNIT; Start 02/02/19 at 09:00 Diazepam (Valium) 10 mg Q6 PRN PO ANXIETY; Start 02/01/19 at 11:00 Docusate Sodium (Colace) 100 mg BID PO Last administered on 02/13/19at 08:55; Admin Dose 100 MG; Start 02/01/19 at 21:00 Metoprolol Tartrate (Lopressor) 50 mg BID PO Last administered on 02/13/19 08:56; Admin Dose 50 MG; Start 02/01/19 at 21:00 Ropinirole HCl (Requip) 1 mg BID PO Last administered on 02/13/19 08:55; Admin Dose 1 MG; Start 02/01/19 at 21:00 Zolpidem Tartrate (Ambien) 5 mg HS PO Last administered on 02/12/19 23:10; Admin Dose 5 MG; Start 02/01/19 at 21:00 Folic Acid (Folic Acid) 0.8 mg DAILY PO Last administered on 02/13/19 08:55; Admin Dose 0.8 MG; Start 02/02/19 at 09:00 Multivitamins Therapeutic (Theragran) 1 tab DAILY PO Last administered on 02/13/19 08:56; Admin Dose 1 TAB; Start 02/02/19 at 09:00 Latanoprost (Xalatan) 1 drop QHS BOTH EYES Last administered on 02/12/19 23:10; Admin Dose 1 DROP; Start 02/01/19 at 21:00 Ondansetron HCl (Zofran Inj) 4 mg Q6H PRN IV NAUSEA AND/OR VOMITING; Start 02/02/19 at 11:00 Acetaminophen/ Hydrocodone Bitart ([place] (10/325)) 1 tab Q4 PRN PO PAIN LEVEL 4-6 Last administered on 02/09/19 14:45; Admin Dose 1 TAB; Start 02/08/19 at 08:30 Morphine Sulfate (morphine) 4 mg Q4 PRN IV SEVERE PAIN LEVEL 7-10 Last administered on 02/13/19 08:57; Admin Dose 4 MG; Start 02/08/19 at 08:30 Phenol (Cepastat Lozenge) 1 lozenge Q4H PRN [place] DRY MOUTH Last administered on 02/13/19 08:53; Admin Dose 1 LOZENGE; Start 02/09/19 at 09:00 Bisacodyl (Dulcolax Supp) 10 mg DAILY PRN [place] CONSTIPATION Last administered on 02/09/19 15:12; Admin Dose 10 MG; Start 02/09/19 at 15:00 Senna (Senokot) 1 tab BID PO Last administered on 02/13/19at 08:55; Admin Dose 1 TAB; Start 02/11/19 at 11:00 Pantoprazole (Protonix Tab) 40 mg DAILY@06 PO Last administered on 02/13/19at 05:34; Admin Dose 40 MG; Start 02/13/19 at 06:00 Polyethylene Glycol (Miralax) 17 gm DAILY PO Last administered on 02/13/19at 08:55; Admin Dose 17 GM; Start 02/12/19 at 14:00 VTE Prophylaxis Risk score (from Ns)>0 risk: 4 SCD applied (from [facility] [place]): Yes Lines/Catheters IV Catheter Type: Peripheral IV Nash in Place: No Assessment/Plan Hospital Course 68 y/o female pmh HTN, HLD, chronic gastritis, rheumatic heart disease s/p AVR, MVR, lumbosacral disc disease, chronic insomnia, RLS, mild chronic diastolic dysfunction admitted 02/01/2019 with abd pain, uncertain etiology. Now s/p cholecystectomy and abdominal ventral hernia repair. RENATE drain in place. Assessment/Plan #abdominal pain-improved s/p cholecystectomy and ventral hernia repair -appreciate surgery care -judicious pain management, discussed with patient should only use PO norco today as we start discharge planning #constipation-improved -continue daily miralax #HTN -amlodipine, mtp #GERD/chronic gastritis/esophagitis -will add back PPI, protonix 40mg po qday #AVR/MVR -ASA #HLD -atorva #insomnia -ambien #RLS -requip #anxiety -valuum prn Dispo: cleared surgically for discharge but if not comfortable on PO pain regimen cannot discharge home. Will try PO regimen today. Discussed with nurse and patient. If PO pain meds only work today, will discharge home tomorrow. COY FISCHER MD Feb 13, 2019 12:11
[2019-02-13 15:09] VITALS: BP 101/65; PULSE 72; RESP 16
[2019-02-13] MEDS: BISACODYL 10 MG SUPP PR PRN (15:17)
[2019-02-13] MEDS: HYDROCODONE/APAP (10/325) TAB PO PRN ×2 (18:15→22:21)
[2019-02-13 19:57] VITALS: BP 104/65; PULSE 77; RESP 16
[2019-02-13] MEDS: ATORVASTATIN 10 MG TAB PO SCH (21:04)
[2019-02-13] MEDS: LATANOPROST 0.005% 2.5 ML OPH BOTH EYES SCH (21:06)
[2019-02-13] MEDS: ZOLPIDEM 5 MG TAB PO SCH (23:05)
[2019-02-14 01:40] VITALS: BP 129/72; PULSE 81; RESP 16
[2019-02-14] MEDS: CEPASTAT LOZENGE MT PRN (01:59)
[2019-02-14] MEDS: HYDROCODONE/APAP (10/325) TAB PO PRN ×5 (02:41→20:32)
[2019-02-14] MEDS: PANTOPRAZOLE (EC) 40 MG TAB PO SCH (05:57)
--- NOTE | 2019-02-14 07:42 | CONS ---
Assessment/Plan Assessment/Plan Problems: (1) HTN (hypertension) Comment: controlled (2) Valvular heart disease Comment: stable.. on asa (3) Abdominal pain Status: Acute Comment: getting better.. want her off IV pain meds... hope to d/c in am Qualifiers: Abdominal location: generalized Qualified Codes: R10.84 - Generalized abdominal pain (4) Elevated liver function tests Comment: resolved (5) S/P AVR Comment: asx (6) S/P MVR (mitral valve repair) (7) Status post lumbar spine surgery for decompression of spinal cord Consultation Date/Type/Reason Admit Date/Time Type of Consult Nephrology Date/Time of Note DATE: 02/14/19 TIME: 07:39 Hx of Present Illness cont improvement.. needs to get up more, in anticipation of d/c tomorrow, if all goes well Exam/Review of Systems Vital Signs Vitals Vital Signs Date Temp Pulse Resp B/P (MAP) Pulse Ox O2 O2 Flow FiO2 Time Delivery Rate 02/14/19 98.2 81 16 129/72 98 01:40 (91) 02/12/19 Room Air 14:39 Intake and Output 02/13/19 02/13/19 02/14/19 1515:00 23:00 07:00 IntakeIntake Total 1000 ml 700 ml BalanceBalance 1000 ml 700 ml Exam Constitutional: alert, oriented Head: normocephalic ENMT: nl external ears & nose Respiratory: clear to auscultation Cardiovascular: regular rate and rhythm Gastrointestinal: soft, nl liver, spleen, other (lap sites fine) Musculoskeletal: nl extremities to inspection Labs Result Diagram: 02/14/19 0540 02/14/19 0540 Results 24hrs Laboratory Tests Test 02/14/19 05:40 White Blood Count 7.0 Red Blood Count 4.34 Hemoglobin 12.3 Hematocrit 37.7 Mean Corpuscular Volume 86.9 Mean Corpuscular Hemoglobin 28.3 L Mean Corpuscular Hemoglobin Concent 32.6 Red Cell Distribution Width 14.5 Platelet Count 271 Mean Platelet Volume 9.4 Immature Granulocytes % 0.300 Neutrophils % 54.1 Lymphocytes % 33.1 Monocytes % 9.5 Eosinophils % 2.4 Basophils % 0.6 Nucleated Red Blood Cells % 0.0 Immature Granulocytes # 0.020 Neutrophils # 3.8 Lymphocytes # 2.3 Monocytes # 0.7 Eosinophils # 0.2 Basophils # 0.0 Nucleated Red Blood Cells # 0.0 Sodium Level 137 Potassium Level 3.9 Chloride Level 105 Carbon Dioxide Level 26 Anion Gap 6 Blood Urea Nitrogen 14 Creatinine 0.78 Est Glomerular Filtrat Rate mL/min > 60 Glucose Level 93 Calcium Level 9.5 Medications Medications Current Medications Amlodipine Besylate (Norvasc) 2.5 mg DAILY PO Last administered on 02/13/19 08:56; Admin Dose 2.5 MG; Start 02/02/19 at 09:00 Aspirin (Halfprin) 81 mg DAILY PO Last administered on 02/13/19 08:57; Admin Dose 81 MG; Start 02/02/19 at 09:00 Atorvastatin Calcium (Lipitor) 10 mg QHS PO Last administered on 02/13/19 21:04; Admin Dose 10 MG; Start 02/01/19 at 21:00 Cholecalciferol (Vitamin D) 5,000 unit DAILY PO Last administered on 02/13/19 08:55; Admin Dose 5,000 UNIT; Start 02/02/19 at 09:00 Diazepam (Valium) 10 mg Q6 PRN PO ANXIETY; Start 02/01/19 at 11:00 Docusate Sodium (Colace) 100 mg BID PO Last administered on 02/13/19 21:04; Admin Dose 100 MG; Start 02/01/19 at 21:00 Metoprolol Tartrate (Lopressor) 50 mg BID PO Last administered on 02/13/19 08:56; Admin Dose 50 MG; Start 02/01/19 at 21:00 Ropinirole HCl (Requip) 1 mg BID PO Last administered on 02/13/19 21:04; Admin Dose 1 MG; Start 02/01/19 at 21:00 Zolpidem Tartrate (Ambien) 5 mg HS PO Last administered on 02/13/19 23:05; Admin Dose 5 MG; Start 02/01/19 at 21:00 Folic Acid (Folic Acid) 0.8 mg DAILY PO Last administered on 02/13/19 08:55; Admin Dose 0.8 MG; Start 02/02/19 at 09:00 Multivitamins Therapeutic (Theragran) 1 tab DAILY PO Last administered on 02/13/19 08:56; Admin Dose 1 TAB; Start 02/02/19 at 09:00 Latanoprost (Xalatan) 1 drop QHS BOTH EYES Last administered on 02/13/19 21:06; Admin Dose 1 DROP; Start 02/01/19 at 21:00 Ondansetron HCl (Zofran Inj) 4 mg Q6H PRN IV NAUSEA AND/OR VOMITING; Start 02/02/19 at 11:00 Acetaminophen/ Hydrocodone Bitart ([place] (10/325)) 1 tab Q4 PRN PO PAIN LEVEL 4-6 Last administered on 02/14/19 06:55; Admin Dose 1 TAB; Start 02/08/19 at 08:30 Morphine Sulfate (morphine) 4 mg Q4 PRN IV SEVERE PAIN LEVEL 7-10 Last administered on 02/13/19 13:12; Admin Dose 4 MG; Start 02/08/19 at 08:30 Phenol (Cepastat Lozenge) 1 lozenge Q4H PRN [place] DRY MOUTH Last administered on 02/14/19 01:59; Admin Dose 1 LOZENGE; Start 02/09/19 at 09:00 Bisacodyl (Dulcolax Supp) 10 mg DAILY PRN [place] CONSTIPATION Last administered on 02/13/19 15:17; Admin Dose 10 MG; Start 02/09/19 at 15:00 Senna (Senokot) 1 tab BID PO Last administered on 02/13/19 21:04; Admin Dose 1 TAB; Start 02/11/19 at 11:00 Pantoprazole (Protonix Tab) 40 mg DAILY@06 PO Last administered on 02/14/19 05:57; Admin Dose 40 MG; Start 02/13/19 at 06:00 Polyethylene Glycol (Miralax) 17 gm DAILY PO Last administered on 02/13/19 08:55; Admin Dose 17 GM; Start 02/12/19 at 14:00 HOWARD DUNCAN MD Feb 14, 2019 07:42
[2019-02-14 07:46] VITALS: BP 126/77; PULSE 87; RESP 16
[2019-02-14] MEDS: CHOLECALCIFEROL 1,000 UNIT TAB PO SCH (09:42)
[2019-02-14] MEDS: SENNA TAB PO SCH ×2 (09:43→20:35)
[2019-02-14] MEDS: FOLIC ACID 0.4 MG TAB PO SCH (09:43)
[2019-02-14] MEDS: DOCUSATE SODIUM 100 MG CAP PO SCH ×2 (09:43→20:35)
[2019-02-14] MEDS: ASPIRIN (EC) 81 MG TAB PO SCH (09:44)
[2019-02-14] MEDS: ROPINIROLE 1 MG TAB PO SCH ×2 (09:44→20:31)
[2019-02-14] MEDS: MULTIVITAMINS THERAPEUTIC TAB PO SCH (09:44)
[2019-02-14] MEDS: METOPROLOL 50 MG TAB PO SCH ×2 (09:44→20:33)
[2019-02-14] MEDS: AMLODIPINE 2.5 MG TAB PO SCH (09:45)
[2019-02-14] MEDS: POLYETHYLENE GLYCOL 17 GM PACKET PO SCH (09:45)
--- NOTE | 2019-02-14 13:36 | PN ---
Date/Time of Note Date/Time of Note DATE: 02/14/19 TIME: 13:32 Assessment/Plan Lines/Catheters IV Catheter Type (from Nrsg): Saline Lock Nash in Place (from Nrsg): No Assessment/Plan Chief Complaint/Hosp Course 1. Abdominal pain of unknown etiology. DDx: referred spinal pain vs musculoskeletal vs symptomatic umbilical hernia vs. ? spigelian hernias (on CT there maybe defect at those sites per Dr. Morales's read) vs. mesenteric panniculitis +/- gastritis vs GB (HIDA is negative, LFTs nl, no GB wall thickening). HIDA c CCK 76% EF (?hyperdynamic) and patient had significant abdominal pain with injection of CCK. MRA with occluded TED, o/w unimpressive. Possible biliary dyskinesia with gallbladder EF of 76%, ventral incisional hernia, bilateral inguinal hernias, thrombosed TED, right lower quadrant adhesions, abnormal liver color status post 3 port laparoscopic cholecystectomy, ventral incisional hernia repair 02/07/2019; sp juana drain dc; US noted possible hematoma/seroma (no infectious sx, should resolve without surgical intervention) -Continue IS -Continue to ambulate -ice pack to abdominal wall, especially periumbilical -diet -Abdominal binder -dc ok from surgical standpoint with f/u in office in 2 weeks. 2. Constipation and reports of bloody stools: ? 2/2 constipation and hemorrhoids (pt w hx of hemorrhoids); no active bleeding at present; had multiple bowel movements last night -monitor hh -agree with holding anticoags -Bowel optimization> senna routine in addition to colace, miralax prn -increase fiber/fluids 3. Anxiety -Psychiatric optimization 4. Back pain status post spine surgery -Pain management -Supportive 5. Chronic gastritis -PPI -Diet, lifestyle optimization 6. Hypertension -diet and medication optimization Thank you, Subjective 24 Hr Interval Summary Bowel function. Tolerating diet. Improved discomfort from abdomen. No fevers, chills, sob, congested cough, cp, palpitations, connor, dizziness, n/v/dysuria. Exam/Review of Systems Vital Signs Vitals Vital Signs Date Temp Pulse Resp B/P (MAP) Pulse Ox O2 O2 Flow FiO2 Time Delivery Rate 02/14/19 98.2 87 16 126/77 97 07:46 (93) 02/12/19 Room Air 14:39 Intake and Output 02/13/19 02/13/19 02/14/19 1515:00 23:00 07:00 IntakeIntake Total 1000 ml 700 ml BalanceBalance 1000 ml 700 ml Exam Free Text/Dictation Constitutional: alert, oriented Psych: nl mood Head: normocephalic, atraumatic Eyes: nl conjunctiva, EOMI, nl lids, nl sclera ENMT: nl external ears & nose, nl lips & teeth, mucosa pink and moist Neck: supple, non-tender; No jvd Respiratory: normal air movement; No congested cough Cardiovascular: regular rate and rhythm Gastrointestinal: soft, distended (Minimal), tender periumbilical- min; incision sites dry without drainage/bruising/discoloration) No firm, No rebound or guarding Genitourinary - Female: nl external genitalia Musculoskeletal: nl extremities to inspection Extremities: normal pulses Neurological: nl mental status, nl speech, nl strength Skin: nl turgor; No rash or lesions Lymph: nl lymph nodes Results Result Diagram: 02/14/19 0540 02/14/19 0540 TAE MORALES MD Feb 14, 2019 13:36
[2019-02-14 14:46] VITALS: BP 122/75; PULSE 72; RESP 16
[2019-02-14 19:52] VITALS: BP 119/68; PULSE 90; RESP 16
[2019-02-14] MEDS: LATANOPROST 0.005% 2.5 ML OPH BOTH EYES SCH (20:31)
[2019-02-14] MEDS: ATORVASTATIN 10 MG TAB PO SCH (20:32)
[2019-02-14] MEDS: ZOLPIDEM 5 MG TAB PO SCH (20:33)
[2019-02-15] MEDS: HYDROCODONE/APAP (10/325) TAB PO PRN ×2 (01:00→05:22)
[2019-02-15 01:31] VITALS: BP 131/70; PULSE 68; RESP 16
[2019-02-15] MEDS: morphine 2 MG INJ IV PRN ×2 (02:56→09:21)
[2019-02-15] MEDS: PANTOPRAZOLE (EC) 40 MG TAB PO SCH (05:21)
--- NOTE | 2019-02-15 07:49 | DS ---
Date/Time of Note Date/Time of Note DATE: 02/15/19 TIME: 07:42 Discharge Summary Admission/Discharge Info Admit Date/Time Feb 03, 2019 at 09:20 Discharge Date/Time 02/15/19 Discharge Diagnosis abdominal pain.... s/p lap ines w incisional hernia repair on 02/07/19 by Mamta angel Patient Condition: Good Consults Dr Barrie Angel, gen surgery Dr Jean, GI Dr Mendieta, cardiology Hx of Present Illness This is a 68 y/o female who was admitted to [facility] this past weekend with abdominal pain. She had CT abd x 2, and an abd ROZINA which revealed a normal pancreas and GB, and was d/c without a clear dx, now returns with recurrent abdominal pain. There is no associated fevers, chills, nausea or emesis. no diarrhea. She states the pain is severe and is coming from her midback, thru to her midepigastric area. She is on Zantac. Again the radiology studies at first suggested some GB sludge, but NO thickened GB wall, no stones, nl pancreas, and labs showed a normal lipase. There was a suggesteion of "mesenteric panniculitis" on the last CT> She is here now afeb, hemodyn stable, and in NAD, but light palpation of her midepig elicits severe c/o pain. Labs here show normal LFTs, no leukocytosis, and a nl lipase. Urine is clean. She states she is not able to tolerate solids due to exacerbation of the pain. She does have a hx/o chronic LBP, recently had lumbar surgery in [place], and sees Dr Nava, Pain Management, in [place]. Hospital Course Patient admitted, had full lab eval (all WNL), Ct scan abd ROZINA and HIDA scan. Initially the dx was in doubt, but repeat HIDA w CCK showed a hyperdynamic GB, together w pain on infusion. Thus, the pt then underwent the Lap ines/incisional hernia repair w Dr Angel on 02/07/19. She did well, was soon able to tolerate po, had mult BM's and did ambulate around the unit without issue. A post op ROZNIA did reveal poss seroma at the surgical site, which Dr Angel felt would resolve on its own. There were no fevers or leukocytosis. She was transitioned to po pain meds, and was then d/c in stable and improved condition. Home Meds Reported Medications Lidocaine (Lidoderm) 1 Each Adh..patch, 1 EACH TP DAILY for leg pain 12 hrs on, 12 hrs off 02/01/19 Travoprost* (Travatan*) 0.004%-2.5 Ml Opht, 1 DROP BOTH EYES QHS, #1 BOTTLE 02/01/19 Potassium Chloride* (Potassium Chloride*) 20 Meq Tablet.er, 20 MEQ PO DAILY, TAB.SA 02/01/19 Magnesium Oxide (Magnesium) 500 Mg Capsule, 250 MG PO BID, CAP 02/01/19 Cholecalciferol (Vitamin D3) 5,000 Unit Tablet, 5000 UNIT PO DAILY, TAB 02/01/19 Atorvastatin Calcium (Atorvastatin Calcium) 10 Mg Tablet, 10 MG PO QHS, #30 TAB 02/01/19 Ropinirole Hcl* (Ropinirole Hcl*) 1 Mg Tablet, 1 MG PO BID, TAB TAKE 1 TAB- 1PM AND 2TAB-QHS 02/01/19 Furosemide* (Furosemide*) 20 Mg Tablet, 20 MG PO DAILY, #60 TAB 02/01/19 Zolpidem Tartrate* (Ambien*) 5 Mg Tablet, 5 MG PO NEEDED for INSOMNIA, #30 TAB 01/29/19 Docusate Sodium* (Colace*) 100 Mg Capsule, 100 MG PO BID, #60 CAP 01/29/19 Hydrocodone/Acetaminophen ([place] 10-325 Tablet) 1 Each Tablet, 1 EACH PO PRN for PAIN, TAB 01/29/19 Diclofenac Sodium* (Voltaren* Gel) 1% -100 Gm Gel, 2 GM TOP BID PRN for PAIN, #1 TUB 01/29/19 Diazepam* (Diazepam*) 10 Mg Tablet, 10 MG PO NEEDED, TAB 01/29/19 Clopidogrel Bisulfate (Clopidogrel) 75 Mg Tablet, 75 MG PO at night, #30 TAB 01/29/19 Lactobacillus Combo No.11 (Probiotic) 1 Each Cap.sprink, 1 CAP PO at night, CAP 01/29/19 Folic Acid (Folic Acid) 0.8 Mg Capsule, 0.8 MG PO DAILY, CAP 01/29/19 Multivitamin/Iron/Folic Acid (MULTI-DAY PLUS IRON TABLET) 1 Each Tablet, 1 EACH PO DAILY, TAB 01/29/19 Metoprolol Tartrate* (Lopressor*) 50 Mg Tab, 50 MG PO BID, #60 TAB 01/29/19 Aspirin Ec (Aspir 81) 81 Mg Tablet.dr, 81 MG PO DAILY, #30 TAB 01/29/19 Amlodipine Besylate* (Amlodipine Besylate*) 2.5 Mg Tablet, 2.5 MG PO DAILY, #30 TAB 01/29/19 Follow-up Plan to see Dr angel in 2 weeks, and Dr Bazzi in 4 weeks. Primary Care Provider Not On Staff Doctor Time spent on discharge: > 30 minutes HOWARD BAZZI MD Feb 15, 2019 07:49
[2019-02-15 08:10] VITALS: BP 114/67; PULSE 73; RESP 18
[2019-02-15] MEDS: SENNA TAB PO SCH (09:00)
[2019-02-15] MEDS: POLYETHYLENE GLYCOL 17 GM PACKET PO SCH (09:20)
[2019-02-15] MEDS: ROPINIROLE 1 MG TAB PO SCH (09:22)
[2019-02-15] MEDS: MULTIVITAMINS THERAPEUTIC TAB PO SCH (09:23)
[2019-02-15] MEDS: AMLODIPINE 2.5 MG TAB PO SCH (09:23)
[2019-02-15] MEDS: FOLIC ACID 0.4 MG TAB PO SCH (09:23)
[2019-02-15] MEDS: DOCUSATE SODIUM 100 MG CAP PO SCH (09:23)
[2019-02-15] MEDS: CHOLECALCIFEROL 1,000 UNIT TAB PO SCH (09:23)
[2019-02-15] MEDS: ASPIRIN (EC) 81 MG TAB PO SCH (09:23)
[2019-02-15] MEDS: METOPROLOL 50 MG TAB PO SCH (09:24)
--- NOTE | 2019-02-15 10:07 | PN ---
Date/Time of Note Date/Time of Note DATE: 02/15/19 TIME: 10:05 Assessment/Plan Lines/Catheters IV Catheter Type (from Nrsg): Saline Lock Nash in Place (from Nrsg): No Assessment/Plan Chief Complaint/Hosp Course 1. Abdominal pain of unknown etiology. DDx: referred spinal pain vs musculoskeletal vs symptomatic umbilical hernia vs. ? spigelian hernias (on CT there maybe defect at those sites per Dr. Angel's read) vs. mesenteric panniculitis +/- gastritis vs GB (HIDA is negative, LFTs nl, no GB wall thickening). HIDA c CCK 76% EF (?hyperdynamic) and patient had significant abdominal pain with injection of CCK. MRA with occluded TED, o/w unimpressive. Possible biliary dyskinesia with gallbladder EF of 76%, ventral incisional hernia, bilateral inguinal hernias, thrombosed TED, right lower quadrant adhesions, abnormal liver color status post 3 port laparoscopic cholecystectomy, ventral incisional hernia repair 02/07/2019; sp juana drain dc; US noted possible hematoma/seroma (no infectious sx, should resolve without surgical intervention) -Continue IS -Continue to ambulate -ice pack to abdominal wall, especially periumbilical -diet as tolerated -Abdominal binder -Pain management -dc ok from surgical standpoint with f/u in office in 2 weeks. 2. Constipation and reports of bloody stools: ? 2/2 constipation and hemorrhoids (pt w hx of hemorrhoids); no active bleeding at present; +bowel function -monitor hh -agree with holding anticoags -Bowel optimization> senna routine in addition to colace, miralax -increase fiber/fluids 3. Anxiety -Psychiatric optimization 4. Back pain status post spine surgery -Pain management -Supportive 5. Ventral hernia: -as above 6. Chronic gastritis -PPI -Diet, lifestyle optimization 7. Hypertension -Medical management Thank you. Patient seen and examined in collaboration with Dr. Alistair Angel. Subjective 24 Hr Interval Summary Feels well. No fevers, chills, sob, congested cough, cp, palpitations, connor, dizziness, n/v/d/dysuria. Tolerating diet. +bowel function. Exam/Review of Systems Vital Signs Vitals Vital Signs Date Temp Pulse Resp B/P (MAP) Pulse Ox O2 O2 Flow FiO2 Time Delivery Rate 02/15/19 98.1 73 18 114/67 100 08:10 (83) 02/12/19 Room Air 14:39 Intake and Output 02/14/19 02/14/19 02/15/19 1515:00 23:00 07:00 IntakeIntake Total 1200 ml 800 ml 480 ml BalanceBalance 1200 ml 800 ml 480 ml Exam Free Text/Dictation Constitutional: alert, oriented Psych: nl mood Head: normocephalic, atraumatic Eyes: nl conjunctiva, EOMI, nl lids, nl sclera ENMT: nl external ears & nose, nl lips & teeth, mucosa pink and moist Neck: supple, non-tender; No jvd Respiratory: normal air movement; No congested cough Cardiovascular: regular rate and rhythm Gastrointestinal: soft, distended (Minimal), tender periumbilical- min (improving); incision sites dry without drainage/bruising/discoloration) No firm, No rebound or guarding Genitourinary - Female: nl external genitalia Musculoskeletal: nl extremities to inspection Extremities: normal pulses Neurological: nl mental status, nl speech, nl strength Skin: nl turgor; No rash or lesions Lymph: nl lymph nodes Results Result Diagram: 02/14/19 0540 02/14/19 0540 JEAN-CLAUDE BACK NP Feb 15, 2019 10:07
== END 2019-02-15 11:05 | disposition home or self-care (01) | DRG 417 ==
LOC: E/R 09:06 → PP2 09:46 → 2NE 19:03 → OBSVTOIN 02-03 09:20 → 2NE 02-05 10:10
PROVIDERS: ADMIT Internal Medicine; ATTEND Internal Medicine
PROC: 0DB58ZX Excision of Esophagus, Via Natural or Artificial Opening Endoscopic, Diagnostic (ICD-10-PCS; 2019-02-02)
PROC: 0DB78ZX Excision of Stomach, Pylorus, Via Natural or Artificial Opening Endoscopic, Diagnostic (ICD-10-PCS; 2019-02-02)
PROC: 0DB68ZX Excision of Stomach, Via Natural or Artificial Opening Endoscopic, Diagnostic (ICD-10-PCS; 2019-02-02)
PROC: 0DJD8ZZ Inspection of Lower Intestinal Tract, Via Natural or Artificial Opening Endoscopic (ICD-10-PCS; 2019-02-03)
PROC: 0WQF4ZZ Repair Abdominal Wall, Percutaneous Endoscopic Approach (ICD-10-PCS; 2019-02-07)
PROC: BF10YZZ Fluoroscopy of Bile Ducts using Other Contrast (ICD-10-PCS; 2019-02-07)
PROC: 0FT44ZZ Resection of Gallbladder, Percutaneous Endoscopic Approach (ICD-10-PCS; principal; 2019-02-07 16:30)
DX: K82.8 Other specified diseases of gallbladder (principal); K55.069 Acute infarction of intestine, part and extent unspecified; I50.32 Chronic diastolic (congestive) heart failure; K29.40 Chronic atrophic gastritis without bleeding; E78.5 Hyperlipidemia, unspecified; F41.9 Anxiety disorder, unspecified; F51.04 Psychophysiologic insomnia; G25.81 Restless legs syndrome; I11.0 Hypertensive heart disease with heart failure; K66.0 Peritoneal adhesions (postprocedural) (postinfection); K40.20 Bilateral inguinal hernia, without obstruction or gangrene, not specified as recurrent; K43.2 Incisional hernia without obstruction or gangrene; K59.00 Constipation, unspecified; K21.0 Gastro-esophageal reflux disease with esophagitis; M54.9 Dorsalgia, unspecified; Z95.2 Presence of prosthetic heart valve; Z79.02 Long term (current) use of antithrombotics/antiplatelets; Z79.82 Long term (current) use of aspirin
CPT/HCPCS: 36415; 71045; 74185; 76536; 78226; 78227; 80048; 80053; 81003; 82150; 83690; 83735; 84100; 84145; 85025; 85610; 85651; 85730; 88304; 88305; 88313; 93005; 97161; 99217; G0378; A9537; J0131; J0690; J1100; J1170; J1200; J1650; J2001; J2175; J2250; J2270; J2405; J2710; J2795; J2805; J3010; J7030